=== PATIENT | male | born 1955 | race Caucasian/White ===

== ENCOUNTER 2016-03-21 21:24 | Inpatient (IN) | payer MEDICARE, MEDICAID ==
--- NOTE | 2016-03-21 21:32 | ED Physician Chart ---
Chief Complaint/HPI - Patient Information Date Seen:: 03/21/16 Time Seen:: 21:30 Chief Complaint:: congestion History of Present Illness:: 60-year-old male history of severe intellectual disability, brought in by EMS with acute, constant, moderate, tarry congestion and associated fever since earlier this morning. History limited as patient has underlying intellectual disability History limited by EMS Allergies:: Allergies Allergy/AdvReac Type Severity Reaction Status Date / Time codeine Allergy Verified 01/17/16 21:45 erythromycin base Allergy Verified 01/17/16 21:45 levofloxacin [From Levaquin] Allergy Verified 01/17/16 21:45 Penicillins [PCN] Allergy Verified 01/17/16 21:45 Historian:: EMS Review:: Nurse's Note Reviewed, EMS run form Reviewed, Transfer documents Reviewed Review of Systems - Review of Systems Other: Complete system review otherwise unremarkable except as noted in HPI. Family Medical History - Family Member Mother History Unknown: Yes Ethnicity: Unknown Physical Exam - Physical Examination Other:: INITIAL VITAL SIGNS: Reviewed by ut GENERAL: Patient is lying on gurney HEAD: Head is normocephalic. No evidence of trauma. No scalp or facial swelling EYES: No scleral icterus bilaterally ENT: Oropharynx is clear of exudate and erythema NECK: Supple. No meningismus. No masses. No evidence of trauma. No cervical spine bony step-offs or crepitus to palpation RESPIRATORY: No tachypnea. Left lower lobe is worse with some crepitus. CV: Regular rate and rhythm. No murmurs, rubs, or gallops ABDOMEN: Soft, non-distended. No masses BACK: No ecchymoses. No evidence of trauma EXTREMITIES: Normal to inspection and palpation. No deformity SKIN: Warm and dry. No obvious rash. No jaundice NEUROLOGIC: Face is symmetric. Withdraws to pain in all extremities Labs/Radiology/EKG Results - Lab Results Results: Lab Results 03/21/16 03/21/16 03/21/16 Range/Units 22:50 22:50 22:50 WBC 12.3 H D (4.8-10.8) Th/cmm RBC 3.86 L (4.30-5.70) Mil/cmm Hgb 13.5 (13.2-17.3) gm/dL Hct 39.2 (39.0-49.0) % MCV 101.4 H (80-99) fl MCH 34.8 H (26.0-30.0) pg MCHC Differential 34.4 (28.0-36.0) pg RDW 11.7 (11.5-20.0) % Plt Count 181 (150-400) Th/cmm MPV 8.2 fl Band Neutrophils % 3 (0-10) % Neutrophils (Manual) 62 (40-80) % Lymphocytes 20 (20-50) % Monocytes 15 H (2-10) % Platelet Estimate ADEQUATE (NORMAL) Ovalocytes 1+ Sodium 129 L (136-145) mEq/L Potassium 4.3 (3.5-5.1) mEq/L Chloride 99 (98-107) mEq/L Carbon Dioxide 21.0 (21.0-31.0) mEq/L Anion Gap 13.3 (7.0-16.0) BUN 15 (7-25) mg/dL Creatinine 0.9 (0.7-1.3) mg/dL Est GFR ( Amer) > 60.0 (>90) ml/min Est GFR (Non-Af Amer) > 60.0 ml/min BUN/Creatinine Ratio 16.7 Glucose 101 (70-105) mg/dL Whole Bld Lactic Acid 1.22 (0.60-2.00) mmol/L Calcium 9.0 (8.6-10.3) mg/dL Total Bilirubin 0.4 (0.3-1.0) mg/dL AST 20 (13-39) U/L ALT 13 (7-52) U/L Alkaline Phosphatase 82 (34-104) U/L Creatine Kinase 181 (30-223) U/L Total Protein 7.1 (6.0-8.3) gm/dL Albumin 3.6 L (4.2-5.5) gm/dL Globulin 3.5 gm/dL Albumin/Globulin Ratio 1.0 (1.0-1.8) Urine Source Urine Color Urine Clarity (CLEAR) Urine pH Ur Specific [place] (1.005-1.030) Urine Protein (NEGATIVE) mg/dL Urine Glucose (UA) (NEGATIVE) mg/dL Urine Ketones (NEGATIVE) mg/dL Urine Blood (NEGATIVE) Urine Nitrate (NEGATIVE) Urine Bilirubin (NEGATIVE) Urine Urobilinogen (0.2 - 1.0) E.U./dL Ur Leukocyte Esterase (NEGATIVE) 03/22/16 Range/Units 01:40 WBC (4.8-10.8) Th/cmm RBC (4.30-5.70) Mil/cmm Hgb (13.2-17.3) gm/dL Hct (39.0-49.0) % MCV (80-99) fl MCH (26.0-30.0) pg MCHC Differential (28.0-36.0) pg RDW (11.5-20.0) % Plt Count (150-400) Th/cmm MPV fl Band Neutrophils % (0-10) % Neutrophils (Manual) (40-80) % Lymphocytes (20-50) % Monocytes (2-10) % Platelet Estimate (NORMAL) Ovalocytes Sodium (136-145) mEq/L Potassium (3.5-5.1) mEq/L Chloride (98-107) mEq/L Carbon Dioxide (21.0-31.0) mEq/L Anion Gap (7.0-16.0) BUN (7-25) mg/dL Creatinine (0.7-1.3) mg/dL Est GFR ( Amer) (>90) ml/min Est GFR (Non-Af Amer) ml/min BUN/Creatinine Ratio Glucose (70-105) mg/dL Whole Bld Lactic Acid (0.60-2.00) mmol/L Calcium (8.6-10.3) mg/dL Total Bilirubin (0.3-1.0) mg/dL AST (13-39) U/L ALT (7-52) U/L Alkaline Phosphatase (34-104) U/L Creatine Kinase (30-223) U/L Total Protein (6.0-8.3) gm/dL Albumin (4.2-5.5) gm/dL Globulin gm/dL Albumin/Globulin Ratio (1.0-1.8) Urine Source CATH Urine Color YELLOW Urine Clarity CLEAR (CLEAR) Urine pH 7.0 Ur Specific [place] 1.015 (1.005-1.030) Urine Protein 30 H (NEGATIVE) mg/dL Urine Glucose (UA) NEGATIVE (NEGATIVE) mg/dL Urine Ketones NEGATIVE (NEGATIVE) mg/dL Urine Blood NEGATIVE (NEGATIVE) Urine Nitrate NEGATIVE (NEGATIVE) Urine Bilirubin NEGATIVE (NEGATIVE) Urine Urobilinogen 0.2 (0.2 - 1.0) E.U./dL Ur Leukocyte Esterase NEGATIVE (NEGATIVE) - Radiology Results Results: Single AP VIEW Portable Chest X-ray was interpreted independently and contemporaneously by Ramiro Sherman MD: No cardiomegaly Normal mediastinum Left lower lobe infiltrates No pneumothorax No soft tissue or bony abnormalities ED Septic Shock - . Is Septic Shock (SBP<90, OR Lactate>4 mmol\L) present?: No Reassessment (Disposition) - Reassessment Reassessment:: Patient has left lower lobe pneumonia. He has multiple drug allergies. Gave Rocephin and doxycycline IV. Call admitting physician discussed the case. Patient will be admitted for further workup and treatment left lower lobe pneumonia. - Diagnosis Diagnosis:: Left lower lobe pneumonia, acute - Patient Disposition Discharge/Transfer:: Home Admitted to:: Med/Surg Admitting Medical Physician:: Glenys Martinez Time:: 01:58 Condition at Disposition:: Stable
[2016-03-21 23:14] LABS: HEMATOCRIT 39.2 % (39.0-49.0); HEMOGLOBIN 13.5 gm/dL (13.2-17.3); MEAN CELL VOLUME 101.4 fl (80-99); MEAN CORPUSCULAR HEMOGLOBIN 34.8 pg (26.0-30.0); MEAN CORPUSCULAR HGB CONC 34.4 pg (28.0-36.0); MEAN PLATELET VOLUME 8.2 fl; PLATELET COUNT 181 Th/cmm (150-400); RED BLOOD COUNT 3.86 Mil/cmm (4.30-5.70); RED CELL DISTRIBUTION WIDTH 11.7 % (11.5-20.0)
[2016-03-21 23:18] LABS: WHITE BLOOD COUNT 12.3 Th/cmm (4.8-10.8)
[2016-03-21 23:32] LABS: ALKALINE PHOSPHATASE 82 U/L (34-104); ANION GAP 13.3 (7.0-16.0); BILIRUBIN,TOTAL 0.4 mg/dL (0.3-1.0); BUN - UREA NITROGEN 15 mg/dL (7-25); BUN/CREATININE RATIO 16.7; CHLORIDE 99 mEq/L (98-107); CREATININE - SERUM 0.9 mg/dL (0.7-1.3); GLUCOSE 101 mg/dL (70-105); POTASSIUM SERUM 4.3 mEq/L (3.5-5.1); SGOT 20 U/L (13-39); SGPT/ALT 13 U/L (7-52); SODIUM SERUM 129 mEq/L (136-145)
[2016-03-22 00:02] LABS: BAND NEUTROPHILE 3 % (0-10); NEUTROPHILS 62 % (40-80); OVALOCYTES 1+; PLATELET ESTIMATE ADEQUATE (NORMAL); TOTAL CELLS COUNTED 100
[2016-03-22] MEDS ORDERED: cefTRIAXone 1 GM in Sodium Chloride 0.9% 50 ML IV ONE (01:30)
[2016-03-22 01:55] LABS: URINE COLOR YELLOW
[2016-03-22 01:56] LABS: URINE BILIRUBIN NEGATIVE (NEGATIVE); URINE BLOOD NEGATIVE (NEGATIVE); URINE GLUCOSE (UA) NEGATIVE (NEGATIVE); URINE KETONE NEGATIVE (NEGATIVE); URINE PROTEIN 30 mg/dL (NEGATIVE); URINE RBC 0-2 /hpf (0-5); URINE UROBILINOGEN 0.2 E.U./dL (0.2 - 1.0); URINE WBC 0-2 /hpf (0-5)
[2016-03-22 01:57] LABS: URINE BACTERIA OCCASIONAL /hpf (NONE SEEN); URINE EPITHELIAL CELLS OCCASIONAL /lpf (FEW)
[2016-03-22] MEDS ORDERED: Magnesium Hydroxide (MOM) 30 mL UDC GT PRN (07:19)
[2016-03-22] MEDS ORDERED: Fleet Enema 135 mL RC PRN (07:19)
[2016-03-22] MEDS ORDERED: FENOFIBRATE GT SCH (09:00)
[2016-03-22] MEDS ORDERED: MELOXICAM 7.5 MG GT SCH (09:00)
--- NOTE | 2016-03-22 09:57 | Diagnostic Imaging Report ---
CHEST X-RAY: AP view INDICATION: pain COMPARISON: Chest x-ray 01/19/2016 FINDINGS: Left effusion is noted with left lung infiltrates. Cardiomegaly is noted. Deformity of the right shoulder is again noted. IMPRESSION: Left effusion and left lung infiltrates. Clinical correlation and follow-up is recommended Cardiomegaly.
[2016-03-22] MEDS: carBAMazepine 200 mg/10 mL UDC GT SCH ×2 (11:42→17:40)
[2016-03-22] MEDS: Multivitamin w/ Minerals Tab PO SCH (11:42)
[2016-03-22] MEDS: Calcium Carb/Vit D 500 mg/200 U Tab GT SCH ×2 (11:44→17:41)
[2016-03-22] MEDS: Polyvinyl Alcohol Ophth Soln 15 mL Bottle EACH EYE SCH ×4 (11:45→17:44)
[2016-03-22] MEDS: metroNIDAZOLE 500mg/NS 100mL 500 MG/100 ML BAG IV SCH (12:30)
[2016-03-22] MEDS: Albuterol/Ipratropium Neb 3 ML AERS HHN SCH ×4 (13:10→22:22)
[2016-03-22] MEDS: cefTRIAXone 1 GM in Sodium Chloride 0.9% 100 ML IV SCH (13:21)
--- NOTE | 2016-03-22 15:30 | History & Physical ---
CHIEF COMPLAINT: Congestion and cough. HISTORY OF PRESENT ILLNESS: A 60-year-old gentleman who has been admitted here for pneumonias in the past was brought in by EMS from [facility] with acute episode of constant, moderate cough with thick phlegm. Apparently, the patient was doing okay until earlier this morning when he was noted to have the above-mentioned symptomatology. Given his risk for pneumonia and given his chronic disability, the patient was brought into the ER where pertinent findings include a white blood cell of 12.3, sodium of 129 and a chest x-ray showing a left lower lobe infiltrate. The patient has been admitted to the medical/surgical floor for further management and care. PAST MEDICAL HISTORY: Includes severe intellectual disability, mental retardation, cerebral palsy, dyslipidemia, seizure disorder, history of CAD, hypothyroidism and hypertension and dysphagia. PAST SURGICAL HISTORY: Include PEG placement. FAMILY HISTORY: Likely noncontributory. SOCIAL HISTORY: He lives at [facility] and care under the care of Dr. Prince. ALLERGIES: MULTIPLE ALLERGIES INCLUDING CODEINE, ERYTHROMYCIN LEVAQUIN, PENICILLINS. REVIEW OF SYSTEMS: Unable to be done given patient's mental condition. PHYSICAL EXAMINATION: VITAL SIGNS: Temperature 97.0, pulse 112, respirations 19-22, BP 112/71, he is satting 98-100% on 2 liters. GENERAL: He is a developmentally delayed male who appears to be well-nourished, was not in acute distress. HEAD: He is atraumatic and normocephalic. NECK: There is no JVD or LAD. CARDIOVASCULAR: Regular rate and rhythm. LUNGS: He has got coarse rhonchi bilaterally, more pronounced on the left side. ABDOMEN: Soft, supple, nontender, nondistended. EXTREMITIES: He does have a PEG tube in place. There is no tenderness to palpation. There is normoactive bowel sounds. LOWER EXTREMITIES: There is no edema, clubbing or cyanosis. LABORATORY DATA: White count 12.3, H and H 13/39 with 15% monocytes and platelet count 181. Sodium 129, potassium 4.3, chloride 99, CO2 21, BUN 15, creatinine 0.9, lactic acid 1.22. LFTs were within normal limits. UA shows trace protein, 0-2 rbc's, negative for leukocyte. DIAGNOSTICS: Chest x-ray shows a left effusion and a left lung infiltrates and cardiomegaly. IMPRESSION: 1. Left-sided pneumonia with effusions. 2. Leukocytosis. 3. History of previous complicated pneumonias, will have to rule out aspiration pneumonia. 4. History of coronary artery disease. 5. Hypertension. 6. Hypothyroidism. 7. ental retardation/cerebral palsy. PLAN: The patient has been admitted to the medical floor and has been placed on Rocephin and Flagyl for anaerobic coverage. Pulmonary supportive care will also be asked for around the clock and a sputum C and will also be collected. He will be kept on his other medications as scheduled. I will also ask for cough suppressants and a followup x-ray as well as a pulmonary eval will be asked for as well. JOB# [id number]
[2016-03-22] MEDS: D5-0.45NS 1,000 ML IV SCH (16:01)
--- NOTE | 2016-03-22 16:25 | Admit Criteria Form ---
Admit Criteria Forms - Admit Criteria Diagnosis: PNEUMONIA, COMMUNITY ACQUIRED Clinical Indications for Admission to Inpatient Care ( Place 'X' for any and all applicable criteria): Admission is indicated for ANY ONE of the following (1)(2)(3): [ ]I. Hypoxemia indicated by ANY ONE of the following: [ ]a) Oxygen saturation less than 90% while breathing room air [ ]b) PO2 less than 60 mm Hg (8.0 kPa) while breathing room air [ ]c) Chronic lung disease with significant deterioration from baseline oxygenation [X ]II. Appropriate diagnostic testing and treatment unavailable in outpatient or recovery facility (eg,testing or infection control measures unavailable(10) [ ]III. Moderate-risk or high-risk category patients (Pneumonia Severity Index (PSI) class IV or V, or CURB-65 score of 3 or greater). [ ]IV. Outpatient treatment failure as indicated by ANY ONE of the following(9) : [ ]a) Failure to respond to antibiotic (eg, resistant organism) [ ]b) Clinically significant adverse effects from medication (eg, vomiting) [ ]c) Complications of pneumonia (eg, empyema, bacteremia) [ ]d) Significant worsening of comorbid cond necessitating inpatient care (eg, chronic heart failure) [ ]V. Intermediate-risk category patients (eg, PSI class III or CURB-65 score 2) who do not improve with initial therapy and observation. [ ]. Immunocompromised patients (eg, AIDS, chronic steroid use) at moderate or high risk based on clinical evaluation. [ ]VII. Complicated pleural effusions (eg, exudative, loculated) [ ]VIII.Hemodynamic instability [ ] IX. Altered mental status that is severe or persistent. [ ]X. Dehydration that is severe or persistent. [ ]XI. Bacteremia [ ]XII. Respiratory finding (eg. tachypnea) that do not respond to outpatient or observation care treatment Extended stay beyond goal length of stay may be needed for (20) [ ]a) Unclear diagnosis [ ]b) Pleural disease [ ]c) Severe pneumonia or treatment failure (25 [ ]d) Respiratory failure (anticipate invasive or noninvasive ventilatory support) [ ]e) Abnormal serum electrolytes (serum Na concentration less than 135 mEq/L (mmol/L) (32)(33) [ ]f) Clinically significant comorbid illness (eg, heart failure, atrial fibrillation with rapid heart rate, alcohol withdrawal, renal insufficiency)(34)(35) [ ]g) Comorbid acute exacerbation of COPD(36) [ ]h) Concomitant diagnosis of malignancy that may be associated with malnutrition, immunologic impairment, or bronchial obstruction. [ ]i) Concomitant altered mental status [ ]j) Culture-identified Gram-negative or antibiotic-resistant organism (eg, Pseudomonas, methicillin-resistant Staphylococcus aureus)(30) [ ]k) Healthcare-associated pneumonia The original [facility] content created by [employer] has been revised. The portions of the content which have been revised are identified through the use of italic text or in bold, and [facility] has neither reviewed nor approved the modified material. All other unmodified content is copyright [facility]. Please see references footnoted in the original [facility] edition 2016 Admit Criteria Met?: Yes
[2016-03-23] MEDS: metroNIDAZOLE 500mg/NS 100mL 500 MG/100 ML BAG IV SCH ×5 (00:50→19:47)
[2016-03-23] MEDS: Atorvastatin Calcium 10 MG TAB GT SCH ×2 (00:58→21:40)
[2016-03-23] MEDS: Polyvinyl Alcohol Ophth Soln 15 mL Bottle EACH EYE SCH ×5 (00:58→21:40)
[2016-03-23] MEDS: Albuterol/Ipratropium Neb 3 ML AERS HHN SCH ×6 (02:43→23:24)
--- NOTE | 2016-03-23 04:23 | Consultation ---
The patient of Dr. Martinez. Thank you Dr. Martinez for this consultation. HISTORY OF PRESENT ILLNESS: This is a 60-year-old male with history of mental challenge, bedridden, dysphagia, [facility] resident, presents with cough, congestion, was found to have pneumonia, admitted for further treatment and management. The patient unable to give any history, appears to be congested, but comfortable. No significant distress at this time. PAST MEDICAL HISTORY: As above. SOCIAL HISTORY: [facility]. PHYSICAL EXAMINATION: VITAL SIGNS: Temperature is 97.8, pulse is 104, respiration is 19, blood pressure 132/70, saturation 98-100%. HEENT: Atraumatic, normocephalic. Pupils reactive to light and accommodation. Ears, nose and throat normal. NECK: Supple. No JVD. CHEST: There are rhonchi bilaterally, more on left than right, decreased breath sounds in the left base. HEART: Regular rate and rhythm. No murmurs. ABDOMEN: Soft. No tenderness. EXTREMITIES: No edema. Chest x-ray, left lower lobe infiltrate with small effusion. LABORATORY DATA: WBC is 12.3, hemoglobin 13.5, hematocrit 39.2, platelets 181. Sodium is 129, potassium 4.3, BUN 15, creatinine 0.9. IMPRESSION: This is a 60-year-old male with: 1. Left lower lobe pneumonia. 2. Dysphagia. 3. Mental retardation. PLAN: 1. IV antibiotics. 2. Nebulizer treatment. 3. Pulmonary toilet. 4. Follow up chest x-ray. I will follow the patient with you. Thank you very much for this consultation. JOB# [id number]
[2016-03-23] MEDS: D5-0.45NS 1,000 ML IV SCH ×2 (07:54→21:56)
[2016-03-23] MEDS: Levothyroxine 0.1 Mg Tab GT SCH (07:55)
[2016-03-23 08:14] LABS: HEMATOCRIT 38.9 % (39.0-49.0); HEMOGLOBIN 13.3 gm/dL (13.2-17.3); MEAN CELL VOLUME 101.6 fl (80-99); MEAN CORPUSCULAR HEMOGLOBIN 34.7 pg (26.0-30.0); MEAN CORPUSCULAR HGB CONC 34.1 pg (28.0-36.0); MEAN PLATELET VOLUME 8.3 fl; PLATELET COUNT 206 Th/cmm (150-400); RED BLOOD COUNT 3.83 Mil/cmm (4.30-5.70); RED CELL DISTRIBUTION WIDTH 11.6 % (11.5-20.0)
[2016-03-23 08:20] LABS: WHITE BLOOD COUNT 7.7 Th/cmm (4.8-10.8)
[2016-03-23 08:25] LABS: ANION GAP 9.1 (7.0-16.0); BUN - UREA NITROGEN 8 mg/dL (7-25); BUN/CREATININE RATIO 13.3; CALCIUM SERUM 8.8 mg/dL (8.6-10.3); CHLORIDE 102 mEq/L (98-107); CREATININE - SERUM 0.6 mg/dL (0.7-1.3); GLUCOSE 101 mg/dL (70-105); POTASSIUM SERUM 4.1 mEq/L (3.5-5.1); SODIUM SERUM 132 mEq/L (136-145)
--- NOTE | 2016-03-23 09:18 | Diagnostic Imaging Report ---
CHEST X-RAY: AP view INDICATION: Pneumonia COMPARISON: Chest x-ray to 03/21/16 FINDINGS: There is improved aeration of the left lung base with resolving left basal opacity. Heart size is mildly prominent. Persistent suboptimal lung volume are noted. IMPRESSION: Improved aeration of the left lung base with resolving left basal opacity likely due to resolving pleural effusion and resolving atelectasis and/or infiltrate in this region.
[2016-03-23] MEDS: carBAMazepine 200 mg/10 mL UDC GT SCH ×2 (09:42→16:57)
[2016-03-23] MEDS: Multivitamin w/ Minerals Tab PO SCH (09:42)
[2016-03-23] MEDS: Calcium Carb/Vit D 500 mg/200 U Tab GT SCH ×2 (09:43→16:59)
[2016-03-23] MEDS: Fenofibrate, Micronized 134 mg Cap PO SCH (09:43)
[2016-03-23 10:28] LABS: BAND NEUTROPHILE 2 % (0-10); EOSINOPHIL 1 % (0-5); NEUTROPHILS 67 % (40-80); PLATELET ESTIMATE ADEQUATE (NORMAL); PLATELET MORPHOLOGY NORMAL (NORMAL); TOTAL CELLS COUNTED 100
[2016-03-23] MEDS: cefTRIAXone 1 GM in Sodium Chloride 0.9% 100 ML IV SCH (13:01)
[2016-03-24] MEDS: metroNIDAZOLE 500mg/NS 100mL 500 MG/100 ML BAG IV SCH ×4 (00:21→20:00)
[2016-03-24] MEDS: Albuterol/Ipratropium Neb 3 ML AERS HHN SCH ×6 (03:05→23:19)
[2016-03-24] MEDS: Levothyroxine 0.1 Mg Tab GT SCH ×2 (06:23→08:37)
[2016-03-24 07:15] LABS: HEMATOCRIT 40.4 % (39.0-49.0); HEMOGLOBIN 13.7 gm/dL (13.2-17.3); MEAN CELL VOLUME 101.1 fl (80-99); MEAN CORPUSCULAR HEMOGLOBIN 34.2 pg (26.0-30.0); MEAN CORPUSCULAR HGB CONC 33.8 pg (28.0-36.0); PLATELET COUNT 218 Th/cmm (150-400); RED CELL DISTRIBUTION WIDTH 11.5 % (11.5-20.0); WHITE BLOOD COUNT 8.3 Th/cmm (4.8-10.8)
[2016-03-24 07:17] LABS: ANION GAP 12.7 (7.0-16.0); BUN - UREA NITROGEN 6 mg/dL (7-25); CALCIUM SERUM 9.1 mg/dL (8.6-10.3); CARBON DIOXIDE 23.4 mEq/L (21.0-31.0); CHLORIDE 104 mEq/L (98-107); CREATININE - SERUM 0.6 mg/dL (0.7-1.3); GLUCOSE 121 mg/dL (70-105); POTASSIUM SERUM 4.1 mEq/L (3.5-5.1); SODIUM SERUM 136 mEq/L (136-145)
[2016-03-24] MEDS: carBAMazepine 200 mg/10 mL UDC GT SCH ×2 (08:26→17:48)
[2016-03-24] MEDS: Multivitamin w/ Minerals Tab PO SCH (08:27)
[2016-03-24] MEDS: Fenofibrate, Micronized 134 mg Cap PO SCH (08:27)
[2016-03-24] MEDS: Calcium Carb/Vit D 500 mg/200 U Tab GT SCH ×2 (08:27→17:48)
[2016-03-24] MEDS: Polyvinyl Alcohol Ophth Soln 15 mL Bottle EACH EYE SCH ×4 (08:51→22:23)
[2016-03-24 10:06] LABS: BAND NEUTROPHILE 1 % (0-10); NEUTROPHILS 65 % (40-80); PLATELET ESTIMATE ADEQUATE (NORMAL); PLATELET MORPHOLOGY NORMAL (NORMAL); TOTAL CELLS COUNTED 100
[2016-03-24 10:07] LABS: ANISOCYTOSIS 1+
[2016-03-24] MEDS: cefTRIAXone 1 GM in Sodium Chloride 0.9% 100 ML IV SCH (13:01)
[2016-03-24] MEDS: Atorvastatin Calcium 10 MG TAB GT SCH (22:24)
[2016-03-25] MEDS: metroNIDAZOLE 500mg/NS 100mL 500 MG/100 ML BAG IV SCH ×4 (00:49→18:08)
[2016-03-25] MEDS: Albuterol/Ipratropium Neb 3 ML AERS HHN SCH ×6 (03:09→22:58)
[2016-03-25] MEDS: Levothyroxine 0.1 Mg Tab GT SCH (06:59)
[2016-03-25 08:05] LABS: % BASOPHILS 0.2 % (0.0-2.0); % EOSINOPHILS 4.1 % (0.0-5.0); % LYMPHOCYTES 17.8 % (20.0-50.0); % MONOCYTES 11.4 % (2.0-10.0); % NEUTROPHILS 66.5 % (40.0-80.0); HEMATOCRIT 37.3 % (39.0-49.0); HEMOGLOBIN 12.9 gm/dL (13.2-17.3); MEAN CELL VOLUME 99.1 fl (80-99); MEAN CORPUSCULAR HEMOGLOBIN 34.3 pg (26.0-30.0); MEAN CORPUSCULAR HGB CONC 34.7 pg (28.0-36.0); MEAN PLATELET VOLUME 7.5 fl; NEUTROPHILE ABSOLUTE 3.9 Th/cmm (1.8-8.0); PLATELET COUNT 238 Th/cmm (150-400); RED BLOOD COUNT 3.77 Mil/cmm (4.30-5.70); RED CELL DISTRIBUTION WIDTH 11.6 % (11.5-20.0)
[2016-03-25 08:06] LABS: WHITE BLOOD COUNT 5.8 Th/cmm (4.8-10.8)
[2016-03-25 08:45] LABS: BUN - UREA NITROGEN 7 mg/dL (7-25); CARBON DIOXIDE 28.1 mEq/L (21.0-31.0); CHLORIDE 106 mEq/L (98-107); CREATININE - SERUM 0.5 mg/dL (0.7-1.3); GLUCOSE 110 mg/dL (70-105); POTASSIUM SERUM 4.1 mEq/L (3.5-5.1); SODIUM SERUM 138 mEq/L (136-145)
[2016-03-25] MEDS: carBAMazepine 200 mg/10 mL UDC GT SCH ×2 (09:37→16:48)
[2016-03-25] MEDS: Calcium Carb/Vit D 500 mg/200 U Tab GT SCH ×2 (09:38→16:48)
[2016-03-25] MEDS: Multivitamin w/ Minerals Tab PO SCH (09:38)
[2016-03-25] MEDS: Fenofibrate, Micronized 134 mg Cap PO SCH (09:41)
[2016-03-25] MEDS: Polyvinyl Alcohol Ophth Soln 15 mL Bottle EACH EYE SCH ×3 (09:42→16:49)
--- NOTE | 2016-03-25 10:15 | Diagnostic Imaging Report ---
Portable chest x-ray HISTORY: Shortness of breath Compared with prior exam of March 23, 2016, the apical regions of the chest [place] by the patient's overlying head. No obvious focal processes seen within the visualized regions of the lungs. IMPRESSION: 1. Limited exam as noted above 2. No obvious focal pulmonary processes within the visualized regions of the lungs.
[2016-03-25] MEDS: cefTRIAXone 1 GM in Sodium Chloride 0.9% 100 ML IV SCH (13:10)
[2016-03-25] MEDS: Atorvastatin Calcium 10 MG TAB GT SCH (21:55)
[2016-03-25] MEDS: D5-0.45NS 1,000 ML IV SCH (22:26)
[2016-03-26] MEDS: metroNIDAZOLE 500mg/NS 100mL 500 MG/100 ML BAG IV SCH ×3 (00:34→12:19)
[2016-03-26] MEDS: Albuterol/Ipratropium Neb 3 ML AERS HHN SCH ×6 (02:46→23:05)
[2016-03-26] MEDS: Polyvinyl Alcohol Ophth Soln 15 mL Bottle EACH EYE SCH ×4 (06:10→16:39)
[2016-03-26] MEDS: Fenofibrate, Micronized 134 mg Cap PO SCH (09:27)
[2016-03-26] MEDS: carBAMazepine 200 mg/10 mL UDC GT SCH ×2 (09:27→18:54)
[2016-03-26] MEDS: Calcium Carb/Vit D 500 mg/200 U Tab GT SCH ×2 (09:28→16:38)
[2016-03-26] MEDS: Levothyroxine 0.1 Mg Tab GT SCH ×2 (09:28→09:30)
[2016-03-26] MEDS: Multivitamin w/ Minerals Tab PO SCH (09:28)
[2016-03-26] MEDS: cefTRIAXone 1 GM in Sodium Chloride 0.9% 100 ML IV SCH (13:16)
[2016-03-26] MEDS: D5-0.45NS 1,000 ML IV SCH (21:54)
[2016-03-26] MEDS: Atorvastatin Calcium 10 MG TAB GT SCH (21:55)
[2016-03-27] MEDS: metroNIDAZOLE 500mg/NS 100mL 500 MG/100 ML BAG IV SCH ×5 (00:25→19:32)
[2016-03-27] MEDS: Albuterol/Ipratropium Neb 3 ML AERS HHN SCH ×6 (02:57→23:15)
[2016-03-27 07:00] LABS: MEAN PLATELET VOLUME 7.6 fl
[2016-03-27 07:06] LABS: ANION GAP 10.8 (7.0-16.0); BUN - UREA NITROGEN 8 mg/dL (7-25); BUN/CREATININE RATIO 13.3; CALCIUM SERUM 8.9 mg/dL (8.6-10.3); CARBON DIOXIDE 25.9 mEq/L (21.0-31.0); CHLORIDE 106 mEq/L (98-107); CREATININE - SERUM 0.6 mg/dL (0.7-1.3); GLUCOSE 111 mg/dL (70-105); POTASSIUM SERUM 4.7 mEq/L (3.5-5.1); SODIUM SERUM 138 mEq/L (136-145)
[2016-03-27] MEDS: Levothyroxine 0.1 Mg Tab GT SCH (07:06)
[2016-03-27 07:22] LABS: % BASOPHILS 0.5 % (0.0-2.0); % EOSINOPHILS 4.5 % (0.0-5.0); % LYMPHOCYTES 24.6 % (20.0-50.0); % MONOCYTES 13.9 % (2.0-10.0); % NEUTROPHILS 56.5 % (40.0-80.0); HEMATOCRIT 38.9 % (39.0-49.0); HEMOGLOBIN 13.6 gm/dL (13.2-17.3); MEAN CELL VOLUME 97.4 fl (80-99); MEAN CORPUSCULAR HEMOGLOBIN 33.9 pg (26.0-30.0); MEAN CORPUSCULAR HGB CONC 34.8 pg (28.0-36.0); NEUTROPHILE ABSOLUTE 3.1 Th/cmm (1.8-8.0); PLATELET COUNT 248 Th/cmm (150-400); RED CELL DISTRIBUTION WIDTH 11.4 % (11.5-20.0); WHITE BLOOD COUNT 5.3 Th/cmm (4.8-10.8)
[2016-03-27] MEDS ORDERED: Ciprofloxacin 400mg Premix PB 400 MG/200 ML BAG IV SCH (09:15)
[2016-03-27] MEDS: Fenofibrate, Micronized 134 mg Cap PO SCH (09:19)
[2016-03-27] MEDS: carBAMazepine 200 mg/10 mL UDC GT SCH ×2 (09:19→16:40)
[2016-03-27] MEDS: Calcium Carb/Vit D 500 mg/200 U Tab GT SCH ×2 (09:20→16:40)
[2016-03-27] MEDS: Multivitamin w/ Minerals Tab PO SCH (09:20)
[2016-03-27] MEDS: Polyvinyl Alcohol Ophth Soln 15 mL Bottle EACH EYE SCH ×4 (09:27→22:45)
--- NOTE | 2016-03-27 12:00 | Diagnostic Imaging Report ---
Portable chest x-ray HISTORY: Shortness of breath Compared with prior exam of March 25, 2016, the heart is enlarged. No definite focal pulmonary processes. Question small left pleural effusion. IMPRESSION: 1. Cardiomegaly 2. Question small left pleural effusion 3. Chronic deformity and changes about the right shoulder and humeral neck region.
[2016-03-27] MEDS: D5-0.45NS 1,000 ML IV SCH (13:44)
[2016-03-27] MEDS: Atorvastatin Calcium 10 MG TAB GT SCH (22:24)
[2016-03-28] MEDS: Polyvinyl Alcohol Ophth Soln 15 mL Bottle EACH EYE SCH ×4 (00:44→17:18)
[2016-03-28] MEDS: metroNIDAZOLE 500mg/NS 100mL 500 MG/100 ML BAG IV SCH ×5 (00:51→17:32)
[2016-03-28] MEDS: Albuterol/Ipratropium Neb 3 ML AERS HHN SCH ×5 (03:39→14:13)
[2016-03-28] MEDS: Levothyroxine 0.1 Mg Tab GT SCH (06:31)
[2016-03-28 06:56] LABS: % BASOPHILS 0.1 % (0.0-2.0); % EOSINOPHILS 1.1 % (0.0-5.0); % LYMPHOCYTES 18.6 % (20.0-50.0); % MONOCYTES 10.1 % (2.0-10.0); % NEUTROPHILS 70.1 % (40.0-80.0); HEMATOCRIT 38.5 % (39.0-49.0); HEMOGLOBIN 13.2 gm/dL (13.2-17.3); MEAN CELL VOLUME 99.5 fl (80-99); MEAN CORPUSCULAR HEMOGLOBIN 34.1 pg (26.0-30.0); MEAN CORPUSCULAR HGB CONC 34.3 pg (28.0-36.0); MEAN PLATELET VOLUME 7.8 fl; NEUTROPHILE ABSOLUTE 4.5 Th/cmm (1.8-8.0); RED BLOOD COUNT 3.87 Mil/cmm (4.30-5.70); RED CELL DISTRIBUTION WIDTH 11.8 % (11.5-20.0)
[2016-03-28 07:27] LABS: PLATELET COUNT 318 Th/cmm (150-400); WHITE BLOOD COUNT 6.5 Th/cmm (4.8-10.8)
[2016-03-28 07:35] LABS: ANION GAP 7.7 (7.0-16.0); BUN - UREA NITROGEN 10 mg/dL (7-25); BUN/CREATININE RATIO 16.7; CALCIUM SERUM 9.1 mg/dL (8.6-10.3); CARBON DIOXIDE 23.7 mEq/L (21.0-31.0); CHLORIDE 107 mEq/L (98-107); CREATININE - SERUM 0.6 mg/dL (0.7-1.3); GLUCOSE 119 mg/dL (70-105); MAGNESIUM 2.1 mg/dL (1.9-2.7); POTASSIUM SERUM 4.4 mEq/L (3.5-5.1); SODIUM SERUM 134 mEq/L (136-145)
[2016-03-28] MEDS: Fenofibrate, Micronized 134 mg Cap PO SCH (09:57)
[2016-03-28] MEDS: Multivitamin w/ Minerals Tab PO SCH (09:59)
[2016-03-28] MEDS: Calcium Carb/Vit D 500 mg/200 U Tab GT SCH ×2 (09:59→17:17)
[2016-03-28] MEDS: carBAMazepine 200 mg/10 mL UDC GT SCH ×2 (10:00→17:17)
[2016-03-28] MEDS ORDERED: Ciprofloxacin 200mg Premix PB 200 MG/100 ML BAG IV SCH (10:00)
--- NOTE | 2016-05-15 18:53 | Discharge Summary ---
ADMITTING DIAGNOSES: Congestion, cough, left-sided pneumonia with pleural effusion, and leukocytosis. SECONDARY DIAGNOSES: History of previous complicated pneumonias, history of aspiration pneumonia, history of coronary artery disease, history of hypertension, hypothyroidism, and mental retardation with cerebral palsy. DISCHARGE DIAGNOSES: Congestion, cough, left-sided pneumonia with pleural effusion, and leukocytosis. CONSULTANTS: Dr. Burleson, Pulmonary. PROCEDURES: There was no major procedure done during this admission. BRIEF HOSPITAL COURSE: This is a 60-year-old male who resides at [facility] who has been admitted to this facility on multiple occasions for pneumonia/aspiration pneumonias and respiratory distress. The patient was brought into the ER with a history of moderate cough with yellowish phlegm x1 day. In the ER, he was noted to have a white count of 12.3, sodium of 129, and x-ray consistent with a left lower lobe infiltrate. The patient was admitted to the telemetry painting where he was placed on IV antibiotics, namely Rocephin, Flagyl, IV fluids, and supportive care including nebulizer treatments and cough syrups. Given his previous history of complex pneumonias, a pulmonary consult was also asked for. The patient's clinical status remained stable and on 03/23/2016, the followup x-ray showed improving aeration of the left lung base with resolving left basal opacity likely due to resolving pleural effusion and resolving atelectasis and/or infiltrate. Vital signs baer, he initially was noted to have a low-grade fever at 99.8, but after that, he remained afebrile and his blood pressure as well as his heart rate did remain stable. As noted above, his white count on admission was 12.3, showing improvement to levels of 7.7 03/23/2016 and remaining stable throughout his hospital stay. MEDICATIONS ON DISCHARGE: Please see the discharge MAR. DISPOSITION: The patient was transferred to [facility] for long-term acute care given his previous history of complicated pneumonias. JOB# [id number]
== END 2016-03-28 22:20 | DRG 178 ==
LOC: ER 21:24 → MSI 03-22 07:07 → TELE 03-25 13:23 → MSI 03-25 13:24
PROVIDERS: ADMIT Internal Medicine; ATTEND Internal Medicine
DX: J15.1 Pneumonia due to Pseudomonas (principal); F72 Severe intellectual disabilities; J90 Pleural effusion, not elsewhere classified; G80.9 Cerebral palsy, unspecified; R13.10 Dysphagia, unspecified; I25.10 Atherosclerotic heart disease of native coronary artery without angina pectoris; I10 Essential (primary) hypertension; E03.9 Hypothyroidism, unspecified; E78.5 Hyperlipidemia, unspecified; G40.909 Epilepsy, unspecified, not intractable, without status epilepticus; Z88.5 Allergy status to narcotic agent; Z88.1 Allergy status to other antibiotic agents; Z88.0 Allergy status to penicillin; Z74.01 Bed confinement status; Z93.1 Gastrostomy status
CPT/HCPCS: 36415-UA; 71010-TC; 80048-TC; 80053-TC; 81001-TC; 82550-TC; 83605; 83735-TC; 83880-TC; 85007-TC; 85025-TC; 85027-TC; 87070; 90799; 94640; 94760; 96375; J0696; J0744; J2405; J2930; J7030; X6118; Z7610

== ENCOUNTER 2016-06-15 11:23 | Emergency (ER) | payer MEDICARE, MEDICAID ==
--- NOTE | 2016-06-15 11:44 | ED Physician Chart ---
Chief Complaint/HPI - Patient Information Date Seen:: 06/15/16 Time Seen:: 11:30 Chief Complaint:: G-tube replacement History of Present Illness:: Patient reportedly pulled [facility] his [facility]tube at his [facility] facility. A Moreno catheter was placed in the stoma probably to keep the stoma from closing. Allergies:: Allergies Allergy/AdvReac Type Severity Reaction Status Date / Time codeine Allergy Verified 01/17/16 21:45 erythromycin base Allergy Verified 01/17/16 21:45 levofloxacin [From Levaquin] Allergy Verified 01/17/16 21:45 Penicillins [PCN] Allergy Verified 01/17/16 21:45 Historian:: EMS Review:: Nurse's Note Reviewed Review of Systems - Review of Systems General/Constitutional: No fever, No chills Skin: No skin lesions Head: No headache Eyes: No loss of vision ENT: No earache Cardio Vascular: No chest pain Pulmonary: No SOB GI: No nausea, No vomiting Musculoskeletal: No bone or joint pain Endocrine: No polyuria Psychiatric: Prior psych history Hematopoietic: No bruising Allergic/Immuno: No urticaria Neurological: No syncope Past Medical History - Past Medical History Past Medical History: HTN, Seizures, Thyroid disorder (a profound mental retardation; gastritis; hypothyroidism) Family History: Other (not available) Social History: Care Facility Surgical History: other (G-tube) Psychiatricy History: Other (severe mental retardation) Medication: Reviewed Family Medical History - Family Member Mother History Unknown: Yes Ethnicity: Unknown Living Status: Unknown Hx Family Cancer: No Hx Family Coronary Artery Disease: No Hx Family Congestive Heart Failure: No Hx Family Hypertension: Yes Hx Family Stroke: No Hx Family Diabetes: No Hx Family Seizures: Yes Hx Family Dementia: No Hx Family AIDS: No Hx Family HIV: No Hx Family COPD: No Hx Family Hepatitis: No Hx Family Psychiatric Problems: No Hx Family Tuberculosis: No Physical Exam - Physical Examination General/Constitutional: Awake Other Gen/Cons comments:: Patient is nonverbal, agitated and restless Head: Atraumatic Eyes: Lids, conjuctiva normal Other Skin comments:: Granuloma noted around the G-tube stoma; no signs of abdominal wall cellulitis ENMT: External ears, nose nl Neck: No nuchal rigidity Respiratory: Nl effort/Exclusion Other Cardio Vascular comments:: Heart sounds in audible GI: No tenderness/rebounding/guarding Extremities: Normal digits & nails Other Neuro/Psych comments:: No spontaneous movement right arm Labs/Radiology/EKG Results - Radiology Results Results: A KUB after the insertion of 50 ML's of Gastrografin into the G-tube showed t.he G-tube to be in the gastrointestinal tract. Assessment - Procedures Procedures:: Skin cleansed around the stoma with chlorhexidine swab; #22 Welsh G-tube inserted without difficulty. ED Septic Shock - . Is Septic Shock (SBP<90, OR Lactate>4 mmol\L) present?: No Reassessment (Disposition) - Reassessment Reassessment Condition:: Improved - Diagnosis Diagnosis:: Severe mental retardation; gastrostomy tube replacement - Aftercare/Follow up Instructions Aftercare/Follow-Up Instructions:: Refer to Discharge Instructions - Patient Disposition Discharge/Transfer:: [facility] SNF Condition at Disposition:: Stable, Improved
[2016-06-15] MEDS ORDERED: Diatrizoate Meglumine/Diatri 30 mL Sol ONE (11:45)
--- NOTE | 2016-06-15 13:53 | Diagnostic Imaging Report ---
Upper GI (Limited) HISTORY: Water-soluble contrast was instilled through patient's gastrostomy tube. The exam demonstrates faint intraluminal opacification of the stomach. Flow of contrast into the small bowel. IMPRESSION: 1. Confirmation of gastrostomy tube within the gastric lumen.
== END 2016-06-15 12:46 ==
LOC: ER 11:23
DX: Z43.1 Encounter for attention to gastrostomy (principal); F72 Severe intellectual disabilities; I10 Essential (primary) hypertension; E07.9 Disorder of thyroid, unspecified; Z93.1 Gastrostomy status; Z88.6 Allergy status to analgesic agent; Z88.0 Allergy status to penicillin; Z88.1 Allergy status to other antibiotic agents
CPT/HCPCS: 99284; 43760; 96372; 74240; J2060; A4217; Z7502; Z7610

== ENCOUNTER 2016-06-29 16:44 | Emergency (ER) | payer MEDICARE, MEDICAID ==
[2016-06-29] MEDS ORDERED: Diatrizoate Meglumine/Diatri 30 mL Sol PO ONE (16:45)
--- NOTE | 2016-06-29 17:18 | ED Physician Chart ---
Chief Complaint/HPI - Patient Information Date Seen:: 06/29/16 Time Seen:: 17:00 Chief Complaint:: G-tube replacement History of Present Illness:: Patient apparently pulled out his G-tube at the SNF. Patient has a history of pulling out his G-tube. Allergies:: Allergies Allergy/AdvReac Type Severity Reaction Status Date / Time codeine Allergy Verified 06/15/16 11:47 erythromycin base Allergy Verified 06/15/16 11:47 levofloxacin [From Levaquin] Allergy Verified 06/15/16 11:47 Penicillins [PCN] Allergy Verified 06/15/16 11:47 Vitals:: Vital Signs - 8 hr 06/29/16 17:07 BP 139/102 Historian:: EMS Review:: Transfer documents Reviewed Review of Systems - Review of Systems General/Constitutional: No fever, No chills Skin: No skin lesions Head: No headache Eyes: No loss of vision ENT: No earache Neck: No neck pain Cardio Vascular: No chest pain Pulmonary: No SOB GI: No nausea G/U: No dysuria Musculoskeletal: No bone or joint pain Endocrine: No polyuria, No polydipsia Psychiatric: Prior psych history Hematopoietic: No bruising Allergic/Immuno: No urticaria Neurological: No syncope Past Medical History - Past Medical History Past Medical History: HTN, Seizures, Thyroid disorder Family History: Other (unavailable) Social History: Non Smoker, No Alcohol, Care Facility Surgical History: PEG/GTube Psychiatricy History: Other (severe mental retardation and cerebral palsy ) Medication: Reviewed Family Medical History - Family Member Mother History Unknown: Yes Ethnicity: Unknown Living Status: Unknown Hx Family Cancer: No Hx Family Coronary Artery Disease: No Hx Family Congestive Heart Failure: No Hx Family Hypertension: Yes Hx Family Stroke: No Hx Family Diabetes: No Hx Family Seizures: Yes Hx Family Dementia: No Hx Family AIDS: No Hx Family HIV: No Hx Family COPD: No Hx Family Hepatitis: No Hx Family Psychiatric Problems: No Hx Family Tuberculosis: No Physical Exam - Physical Examination General/Constitutional: Awake, No distress Other Gen/Cons comments:: Nonverbal; apparent paralysis of the right upper extremity with flexion deformity right wrist Head: Atraumatic Eyes: Lids, conjuctiva normal Skin: No rash, No skin lesions Other Skin comments:: Granulation tissue around the gastrostomy tube stoma. ENMT: External ears, nose nl Other ENMT comments:: Some teeth missing Neck: No nuchal rigidity Respiratory: Nl effort/Exclusion, Clear to Auscultation Cardio Vascular: RRR GI: No tenderness/rebounding/guarding, No organomegaly, No hernia Extremities: Normal digits & nails Other Neuro/Psych comments:: Nonverbal; right upper extremity paralysis Labs/Radiology/EKG Results - Radiology Results Results: After injection of 50 mL of Gastrografin correct position of the G-tube was confirmed by noting the contrast material to be in the small intestine Assessment - Assessment Assessment/Comments:: skin cleanse around the G-tube stoma with Betadine swabs; #22 gastrostomy tube inserted into the stoma. ED Septic Shock - . Is Septic Shock (SBP<90, OR Lactate>4 mmol\L) present?: No - <6hrs of presentation: Vital Signs: Vital Signs - 8 hr 06/29/16 17:07 BP 139/102 Reassessment (Disposition) - Reassessment Reassessment Condition:: Improved - Diagnosis Diagnosis:: Gastrostomy tube replacement; profound mental retardation; spastic quadriplegia - Aftercare/Follow up Instructions Aftercare/Follow-Up Instructions:: Refer to Discharge Instructions - Patient Disposition Discharge/Transfer:: Custodial Care - SNF Condition at Disposition:: Stable, Improved
[2016-06-29 17:22] VITALS: BP 139/102
--- NOTE | 2016-06-30 10:08 | Diagnostic Imaging Report ---
Upper GI with Gastrografin HISTORY: G-tube confirmation COMPARISON: Upper GI series on 06/15/2016 FINDINGS: [employer]or view demonstrates a percutaneous feeding tube. The bowel gas pattern is nonspecific. The second image demonstrates contrast opacification of the stomach and small bowel loops. IMPRESSION: Intraluminal confirmation of patient's percutaneous gastric feeding tube.
== END 2016-06-29 18:20 ==
LOC: ER 16:44
DX: Z43.1 Encounter for attention to gastrostomy (principal); F79 Unspecified intellectual disabilities; G82.50 Quadriplegia, unspecified; I10 Essential (primary) hypertension; E07.9 Disorder of thyroid, unspecified; Z88.0 Allergy status to penicillin; Z88.1 Allergy status to other antibiotic agents; Z88.6 Allergy status to analgesic agent; Z93.1 Gastrostomy status
CPT/HCPCS: Z7502; Z7610

== ENCOUNTER 2016-07-27 22:41 | Emergency (ER) | payer MEDICARE, MEDICAID ==
[2016-07-27] MEDS ORDERED: Diatrizoate Meglumine/Diatri 30 mL Sol ONE (23:07)
--- NOTE | 2016-07-27 23:10 | ED Physician Chart ---
Chief Complaint/HPI - Patient Information Date Seen:: 07/27/16 Time Seen:: 22:50 Chief Complaint:: G-tube replacement History of Present Illness:: Patient pulled out his G-tube at the group home facility. Allergies:: Allergies Allergy/AdvReac Type Severity Reaction Status Date / Time codeine Allergy Verified 06/15/16 11:47 erythromycin base Allergy Verified 06/15/16 11:47 levofloxacin [From Levaquin] Allergy Verified 06/15/16 11:47 Penicillins [PCN] Allergy Verified 06/15/16 11:47 Historian:: EMS Review:: Transfer documents Reviewed Review of Systems - Review of Systems General/Constitutional: No fever, No chills Skin: No skin lesions Head: No headache Eyes: No loss of vision ENT: No earache Neck: No neck pain Cardio Vascular: No chest pain Pulmonary: No SOB GI: No nausea, No vomiting G/U: No dysuria Musculoskeletal: No bone or joint pain Endocrine: No polyuria Psychiatric: Prior psych history Hematopoietic: No bruising Allergic/Immuno: No urticaria Neurological: No syncope, No focal symptoms Past Medical History - Past Medical History Past Medical History: HTN, Seizures, Thyroid disorder (profound mental disability; cerebral palsy; hypothyroidism gastritis), Other Surgical History: PEG/GTube Psychiatricy History: Other (profound mental retardation) Medication: Reviewed Family Medical History - Family Member Mother History Unknown: Yes Ethnicity: Unknown Living Status: Unknown Hx Family Cancer: No Hx Family Coronary Artery Disease: No Hx Family Congestive Heart Failure: No Hx Family Hypertension: Yes Hx Family Stroke: No Hx Family Diabetes: No Hx Family Seizures: Yes Hx Family Dementia: No Hx Family AIDS: No Hx Family HIV: No Hx Family COPD: No Hx Family Hepatitis: No Hx Family Psychiatric Problems: No Hx Family Tuberculosis: No Physical Exam - Physical Examination Other Gen/Cons comments:: Agitated and restless; nonverbal Head: Atraumatic Eyes: Lids, conjuctiva normal Skin: Nl inspection ENMT: External ears, nose nl Neck: No nuchal rigidity Respiratory: Nl effort/Exclusion, Clear to Auscultation Cardio Vascular: RRR GI: No tenderness/rebounding/guarding, No organomegaly, No hernia, Normal BS's Extremities: Normal digits & nails Neuro/Psych: No focal deficits Misc: No paraspinal tenderness Labs/Radiology/EKG Results - Radiology Results Results: KUB after injection of Gastrografin showed the Gastrografin to be in the GI tract. Assessment - Assessment General Assessment: With use of a curved hemostat a 22 gauge G-tube was inserted in the stoma. Granulation tissue was noted at the stoma but no signs of infection. ED Septic Shock - . Is Septic Shock (SBP<90, OR Lactate>4 mmol\L) present?: No Reassessment (Disposition) - Reassessment Reassessment Condition:: Improved - Diagnosis Diagnosis:: G-tube replacement - Aftercare/Follow up Instructions Aftercare/Follow-Up Instructions:: Refer to Discharge Instructions - Patient Disposition Discharge/Transfer:: Home Admitted to:: [facility] Condition at Disposition:: Stable, Improved
[2016-07-27] MEDS ORDERED: Diatrizoate Meglumine/Diatri 30 mL Sol PO ONE (23:12)
--- NOTE | 2016-07-28 09:42 | Diagnostic Imaging Report ---
Upper GI with Gastrografin HISTORY: G-tube confirmation COMPARISON: Chest x-ray 07/10/2016 upper GI exam on 06/29/2016 FINDINGS: Sample Tailor view demonstrates moderate amount of stool with nonspecific gas-filled loops of bowel. A percutaneous gastric feeding tube is noted. Left basal density is noted. There is circular radiodensity projecting along the left iliac crest. The second image demonstrates contrast opacification of the stomach and small bowel loops. IMPRESSION: Intraluminal confirmation of patient's percutaneous gastric feeding tube. Left basal density possibly due to a left pleural effusion and/or infiltrate as seen on previous examination on 07/10/2016. Circular radiodensity projecting along the left iliac crest nonspecific and possibly outside of the patient. Please correlate clinically.
== END 2016-07-28 00:40 ==
LOC: ER 22:41
DX: Z43.1 Encounter for attention to gastrostomy (principal); I10 Essential (primary) hypertension; E07.9 Disorder of thyroid, unspecified; Z88.1 Allergy status to other antibiotic agents; Z88.0 Allergy status to penicillin; Z88.6 Allergy status to analgesic agent
CPT/HCPCS: 99284; 43760; 96372; 74240; J2060; A4217; Z7502; Z7610

== ENCOUNTER 2017-01-01 15:20 | Inpatient (IN) | payer MEDICARE, MEDICAID ==
--- NOTE | 2017-01-01 15:40 | ED Physician Chart ---
ED Chief Complaint/HPI - Patient Information Date Seen:: 01/01/17 Time Seen:: 15:30 Chief Complaint:: Diarrhea History of Present Illness:: onset x one day or diarrhea; no report of A/N/V/C, fever, chills, H/As, neck pain, C/P, SOB, Abd. Pain, or urinary s/s Allergies:: Allergies Allergy/AdvReac Type Severity Reaction Status Date / Time codeine Allergy Verified 06/15/16 11:47 erythromycin base Allergy Verified 06/15/16 11:47 levofloxacin [From Levaquin] Allergy Verified 06/15/16 11:47 Penicillins [PCN] Allergy Verified 06/15/16 11:47 Historian:: Patient, EMS Review:: Nurse's Note Reviewed, EMS run form Reviewed ED Review of Systems - Review of Systems General/Constitutional: No fever, No chills, No weight loss, No weakness, No diaphoresis, No edema, No loss of appetite Skin: No skin lesions, No rash, No bruising Head: No headache, No light-headedness Eyes: No loss of vision, No pain, No diplopia ENT: No earache, No nasal drainage, No sore throat, No tinnitus Neck: No neck pain, No swelling, No thyromegaly, No stiffness, No mass noted Cardio Vascular: No chest pain, No palpitations, No PND, No orthopnea, No edema Pulmonary: No SOB, No cough, No sputum, No wheezing GI: No nausea, No vomiting, Diarrhea, No pain, No melena, No hematochezia, No constipation, No hematemesis G/U: No dysuria, No frequency, No hematuria Musculoskeletal: No bone or joint pain, No back pain, No muscle pain Endocrine: No polyuria, No polydipsia Psychiatric: No prior psych history, No depression, No anxiety, No suicidal ideation, No homicidal ideation, No auditory hallucination, No visual hallucination Hematopoietic: No bruising, No lymphadenopathy Allergic/Immuno: No urticaria, No angioedema Neurological: No syncope, No focal symptoms, No weakness, No paresthesia, No headache, No seizure, No dizziness, Confusion, No vertigo ED Past Medical History - Past Medical History Obtainable: Yes Past Medical History: Dementia, Other (Cerebral Palsy) Family History: None Social History: Non Smoker, No Alcohol, No Drug Use, Single, Care Facility Surgical History: None Psychiatricy History: Dementia Medication: Reviewed Family Medical History - Family Member Mother History Unknown: Yes Ethnicity: Unknown Living Status: Unknown Hx Family Cancer: No Hx Family Coronary Artery Disease: No Hx Family Congestive Heart Failure: No Hx Family Hypertension: Yes Hx Family Stroke: No Hx Family Diabetes: No Hx Family Seizures: Yes Hx Family Dementia: No Hx Family AIDS: No Hx Family HIV: No Hx Family COPD: No Hx Family Hepatitis: No Hx Family Psychiatric Problems: No Hx Family Tuberculosis: No ED Physical Exam - Physical Examination General/Constitutional: Awake, Well-developed, well-nourished, Alert, No distress, GCS 15, Non-toxic appearing, Ambulatory Head: Atraumatic Eyes: Lids, conjuctiva normal, PERRL, EOMI Skin: Nl inspection, No rash, No skin lesions, No ecchymosis, Well hydrated, No lymphadenopathy ENMT: External ears, nose nl, TM canals nl, Nasal exam nl, Lips, teeth, gums nl , Oropharynx nl, Tonsils nl Neck: Nontender, Full ROM w/o pain, No JVD, No nuchal rigidity, No bruit, No mass, No stridor Respiratory: Nl effort/Exclusion, Clear to Auscultation, No Wheeze/Rhonchi/Rales Cardio Vascular: RRR, No murmur, gallop, rubs, NL S1 S2, Carotid/Femoral/Distal pulses equal bilaterally GI: No tenderness/rebounding/guarding, No organomegaly, No hernia, Normal BS's, Nondistended, No mass/bruits, No McBurney tenderness : No CVA tenderness Extremities: No tenderness or effusion, Full ROM, normal strength in all extremities, No edema, Normal digits & nails Neuro/Psych: Alert/oriented, DTR's symmetric, Normal sensory exam, Normal motor strength, Judgement/insight normal, Mood normal, Normal gait, No focal deficits Misc: Normal back, No paraspinal tenderness ED Labs/Radiology/EKG Results - Lab Results Comments:: WBC: 14.1; LA: 3.37; Na+: 150; BUN: 28; Elevated Amylase and Lipase; Elevated LFTs - EKG Interpretations EKG Time:: 17:00 Rate & Rhythm: 109; ST Comments:: T-Wave Inversions; non-specific st-t changes ED Septic Shock - . Is Septic Shock (SBP<90, OR Lactate>4 mmol\L) present?: No ED Reassessment (Disposition) - Reassessment Reassessment Condition:: Improved - Diagnosis Diagnosis:: Dx: Myocardial Ischemia; Tachyarrythmias; Hypernatremia; Dehydration; Leukocytosis; Pancreatitis; Sepsis - Aftercare/Follow up Instructions Aftercare/Follow-Up Instructions:: Counseled pt regarding lab results/diagnosis & need follow up, Counseled pt & family regarding lab results/diagnosis & need follow up - Patient Disposition Discharge/Transfer:: Acute Care w/in this hosp Accepting Physician:: Dr. Martinez Time Called:: 1839 Time Responded:: 18:40 Admitted to:: Telemetry Spoke to:: Dr. Martinez Admitting Medical Physician:: Dr. Martinez Condition at Disposition:: Stable, Improved
[2017-01-01] MEDS ORDERED: Sodium Chloride 0.9% 1,000 ML IV ONE (15:41)
[2017-01-01] MEDS ORDERED: Haloperidol Lactate 5 mg/mL 1mL Vial IVP ONE (15:58)
[2017-01-01] MEDS ORDERED: Haloperidol Lactate 5 mg/mL 1mL Vial ONE (16:02)
[2017-01-01] MEDS ORDERED: Haloperidol Lactate 5 mg/mL 1mL Vial IM STA (16:08)
[2017-01-01 16:48] LABS: HEMATOCRIT 48.1 % (41.0-60); HEMOGLOBIN 16.6 gm/dL (12-16); MEAN CELL VOLUME 102.3 fl (80-99); MEAN CORPUSCULAR HEMOGLOBIN 35.2 pg (26.0-30.0); MEAN CORPUSCULAR HGB CONC 34.4 pg (28.0-36.0); MEAN PLATELET VOLUME 8.4 fl; RED BLOOD COUNT 4.71 Mil/cmm (4.30-5.70); RED CELL DISTRIBUTION WIDTH 11.8 % (11.5-20.0)
[2017-01-01 17:05] LABS: PLATELET COUNT 319 Th/cmm (150-400); WHITE BLOOD COUNT 14.1 Th/cmm (4.8-10.8)
[2017-01-01 17:12] LABS: INR 1.04 (0.5-1.4); PROTHROMBIN TIME (TEST) 10.8 SECONDS (9.5-11.5)
[2017-01-01 17:13] LABS: AMYLASE SERUM 131 U/L (29-103); LIPASE 147 U/L (11-82)
[2017-01-01 17:15] LABS: ALB/GLOB RATIO 1.1 (1.0-1.8); ALKALINE PHOSPHATASE 219 U/L (34-104); ANION GAP 9.3 (7.0-16.0); BILIRUBIN,TOTAL 0.4 mg/dL (0.3-1.0); BUN - UREA NITROGEN 28 mg/dL (7-25); CALCIUM SERUM 10.1 mg/dL (8.6-10.3); CHLORIDE 118 mEq/L (98-107); CHOLESTEROL 182 mg/dL (<200); CREATININE - SERUM 0.8 mg/dL (0.7-1.3); GLUCOSE 92 mg/dL (70-105); POTASSIUM SERUM 4.3 mEq/L (3.5-5.1); SGOT 22 U/L (13-39); SGPT/ALT 25 U/L (7-52); SODIUM SERUM 150 mEq/L (136-145); TRIGLYCERIDES 146 mg/dL (<150)
[2017-01-01 17:31] LABS: EOSINOPHIL 1 % (0-5); NEUTROPHILS 81 % (40-80); PLATELET ESTIMATE ADEQUATE (NORMAL)
[2017-01-02 06:33] LABS: % BASOPHILS 0.4 % (0.0-2.0); % EOSINOPHILS 1.2 % (0.0-5.0); % LYMPHOCYTES 20.4 % (20.0-50.0); % MONOCYTES 12.9 % (2.0-10.0); % NEUTROPHILS 65.1 % (40.0-80.0); HEMATOCRIT 48.7 % (41.0-60); HEMOGLOBIN 16.5 gm/dL (12-16); MEAN CELL VOLUME 101.7 fl (80-99); MEAN CORPUSCULAR HEMOGLOBIN 34.4 pg (26.0-30.0); MEAN CORPUSCULAR HGB CONC 33.9 pg (28.0-36.0); MEAN PLATELET VOLUME 9.5 fl; NEUTROPHILE ABSOLUTE 5.9 Th/cmm (1.8-8.0); PLATELET COUNT 279 Th/cmm (150-400); RED BLOOD COUNT 4.79 Mil/cmm (4.30-5.70); RED CELL DISTRIBUTION WIDTH 12.1 % (11.5-20.0)
[2017-01-02 06:36] LABS: WHITE BLOOD COUNT 9.1 Th/cmm (4.8-10.8)
[2017-01-02 06:59] LABS: ALB/GLOB RATIO 1.1 (1.0-1.8); ALKALINE PHOSPHATASE 198 U/L (34-104); ANION GAP 10.3 (7.0-16.0); BILIRUBIN,TOTAL 0.5 mg/dL (0.3-1.0); BUN - UREA NITROGEN 25 mg/dL (7-25); BUN/CREATININE RATIO 35.7; CALCIUM SERUM 9.7 mg/dL (8.6-10.3); CARBON DIOXIDE 26.7 mEq/L (21.0-31.0); CHLORIDE 116 mEq/L (98-107); CREATININE - SERUM 0.7 mg/dL (0.7-1.3); MAGNESIUM 2.6 mg/dL (1.9-2.7); SGOT 25 U/L (13-39); SGPT/ALT 20 U/L (7-52); SODIUM SERUM 149 mEq/L (136-145)
[2017-01-02 07:01] LABS: GLUCOSE 106 mg/dL (70-105)
--- NOTE | 2017-01-02 10:10 | History & Physical ---
ADMIT DATE: 01/02/2017 CHIEF COMPLAINT: Diarrhea x1 day. HISTORY OF PRESENT ILLNESS: This 61-year-old male with history of mental retardation/cerebral palsy, dementia, history of CAD, seizure disorder, hypertension, and hypothyroidism, who presented from [facility] with a 1-day history of multiple episodes of diarrhea. The patient is nonverbal and but per records, he had 1 day of the above-mentioned complaint, but there were no reports of nausea,vomiting, fever, chills, shortness of breath, chest pain, or abdominal pain. Pertinent findings at the ER include a white count of 14.1 with 81% neutrophils, sodium 150, chloride 118, BUN 28, and lactic acid of 3.37. Also, his amylase and lipase were noted to be slightly elevated at 131 and 147 respectively. He was also noted to be tachycardic and an EKG did show a sinus tachycardia of 109. He has been admitted to a telemetry painting for further management and care. PAST MEDICAL HISTORY: As noted above. PAST SURGICAL HISTORY: Unknown. FAMILY HISTORY: Likely noncontributory to this admission. SOCIAL HISTORY: No tobacco, ETOH, or illicit drug usage. Lives in assisted living facility. ALLERGIES: Multiple including antibiotics: Codeine, erythromycin, Levaquin, and penicillins. REVIEW OF SYSTEMS: Unable to be done given the patient's condition. PHYSICAL EXAMINATION: VITAL SIGNS: Temperature 98.6, pulse 95, respirations 18, blood pressure 140/73, and satting 97% on room air. GENERAL: A well-nourished mentally disabled gentleman, not in acute distress. HEENT: Oropharynx, he has got dry mucous membranes. NECK: There is no JVD or LAD. CARDIOVASCULAR: Regular rate and rhythm without any murmurs. LUNGS: Decreased, but clear to auscultation bilaterally. ABDOMEN: Soft, supple. There is mild diffuse tenderness to palpation, but no guarding. No peritoneal signs. NABS. EXTREMITIES: Lower extremities, no edema. NEUROLOGIC: Difficult to assess, but his cranial nerves II through XII are grossly within normal limits. LABORATORY DATA AND DIAGNOSTIC STUDIES: On admission, white count 14.1 and H and H 16/48 with a platelet count of 319. Sodium 150, potassium 4.3, chloride 118, CO2 27, BUN 28, creatinine 0.8, and glucose 92. Lactic acid was 3.37 and magnesium 2.6. LFTs were within normal limits. Alkaline phosphatase 219. TSH was within normal limits. ASSESSMENT: 1. Diarrhea/abdominal pain. Differential includes acute gastroenteritis versus diverticulitis/colitis versus pancreatitis given his labs. 2. Leukocytosis. 3. Hypernatremia. 4. Azotemia/dehydration. 5. History of hypertension. 6. History of coronary artery disease. 7. History of seizure disorder. 8. History of hypothyroidism. 9. Mental retardation, cerebral palsy. PLAN: The patient has been admitted to the tele painting for further management and care. He has been placed on IV fluids, but at this time, the patient has no IV line (hard stick), therefore, I have asked for a PICC line to be placed. He has been placed on vancomycin given his multiple antibiotic allergies and has been pancultured. He will remain on his other medications as scheduled and labs will be done on a daily basis. JOB# [id number] ROSSI
[2017-01-02] MEDS: D5-0.45NS 1,000 ML IV SCH (16:24)
[2017-01-02] MEDS ORDERED: CARBAMAZEPINE 600 MG GT SCH (17:00)
[2017-01-03] MEDS: Levothyroxine 0.1 Mg Tab GT SCH (06:36)
[2017-01-03] MEDS: D5-0.45NS 1,000 ML IV SCH ×2 (06:40→21:53)
[2017-01-03] MEDS ORDERED: CARBAMAZEPINE 300 MG GT SCH (09:00)
[2017-01-03] MEDS: Sulfamethoxazole/TMP 800/160mg Tab PO SCH ×2 (11:11→16:25)
[2017-01-04 06:33] LABS: AMYLASE SERUM 422 U/L (29-103); BUN - UREA NITROGEN 25 mg/dL (7-25); BUN/CREATININE RATIO 22.7; CALCIUM SERUM 8.6 mg/dL (8.6-10.3); CARBON DIOXIDE 23.1 mEq/L (21.0-31.0); CHLORIDE 116 mEq/L (98-107); CREATININE - SERUM 1.1 mg/dL (0.7-1.3); GLUCOSE 111 mg/dL (70-105); LIPASE 734 U/L (11-82); MAGNESIUM 2.3 mg/dL (1.9-2.7); POTASSIUM SERUM 3.1 mEq/L (3.5-5.1); SODIUM SERUM 146 mEq/L (136-145)
[2017-01-04 06:39] LABS: % BASOPHILS 0.2 % (0.0-2.0); % LYMPHOCYTES 12.4 % (20.0-50.0); % MONOCYTES 11.9 % (2.0-10.0); % NEUTROPHILS 73.5 % (40.0-80.0); HEMATOCRIT 44.9 % (41.0-60); HEMOGLOBIN 14.9 gm/dL (12-16); MEAN CELL VOLUME 102.3 fl (80-99); MEAN CORPUSCULAR HEMOGLOBIN 33.9 pg (26.0-30.0); MEAN CORPUSCULAR HGB CONC 33.1 pg (28.0-36.0); MEAN PLATELET VOLUME 9.4 fl; NEUTROPHILE ABSOLUTE 7.7 Th/cmm (1.8-8.0); PLATELET COUNT 247 Th/cmm (150-400); RED BLOOD COUNT 4.38 Mil/cmm (4.30-5.70); RED CELL DISTRIBUTION WIDTH 12.2 % (11.5-20.0); WHITE BLOOD COUNT 10.4 Th/cmm (4.8-10.8)
[2017-01-04] MEDS: Levothyroxine 0.1 Mg Tab GT SCH (06:44)
[2017-01-04] MEDS ORDERED: Potassium Chloride Elixir 20 mEq /15 mL UDC GT ONE (08:30)
[2017-01-04] MEDS: Sulfamethoxazole/TMP 800/160mg Tab PO SCH (08:58)
--- NOTE | 2017-01-11 03:56 | Discharge Summary ---
DATE OF DISCHARGE: 01/04/2017 ADMITTING DIAGNOSES: 1. Diarrhea, abdominal pain, rule out gastroenteritis versus less likely diverticulitis, colitis. 2. Leukocytosis. 3. Hyponatremia. 4. Azotemia, dehydration. SECONDARY DIAGNOSES: Include history of hypertension, history of CAD, history of seizure disorder, history of hypothyroidism, history of mental retardation/cerebral palsy. DISCHARGE DIAGNOSES: 1. Diarrhea, abdominal pain, likely acute gastroenteritis-resolved. 2. Leukocytosis, resolved. 3. Hyponatremia, improved. 4. Azotemia, dehydration, improved. CONSULTANTS: There was no consultants used during this admission. MAJOR PROCEDURES: PICC line due to poor IV access done on 01/01/2017. BRIEF HOSPITAL COURSE: A 61-year-old gentleman, resident of [facility] with the above-mentioned diagnosis, presented to the ER with 1-day history of nausea, vomiting, diarrhea, fever, chills and some shortness of breath. On admission, his white count was noted to be 14,000 with 81% neutrophils. Sodium 150, BUN 28, lactic acid level of 3.37. The patient was admitted and was placed on IV fluids, IV antibiotics and supportive care with improvement of his symptoms. His vital signs were noted to be stable throughout his hospital stay and his labs showed improvement, i.e., white count went from 14.1 to 9.1 on 01/02/2017. His sodium improved to a level of 149 by 01/04/2017 and his BUN improved from 28 to 25. Of note, his lipase and amylase were noted to be somewhat elevated during his admission, but he was able to tolerate p.o. without any nausea, vomiting and as noted above. His diarrhea did improve. DISCHARGE MEDICATIONS: Include Cipro 250 b.i.d. x10 days. Please refer to the MAR for other medications. DISPO: pt was DC back to [facility] under the care of Dr. Prince. JOB# [id number] ROSSI
== END 2017-01-04 10:20 | disposition home or self-care (01) | DRG 871 ==
LOC: ER 15:20 → TELE 19:07 → MSI 01-03 12:03
PROVIDERS: ADMIT Internal Medicine; ATTEND Internal Medicine
PROC: 05HY33Z Insertion of Infusion Device into Upper Vein, Percutaneous Approach (ICD-10-PCS; principal; 2017-01-02)
DX: A41.9 Sepsis, unspecified organism (principal); K85.90 Acute pancreatitis without necrosis or infection, unspecified; E87.0 Hyperosmolality and hypernatremia; F03.90 Unspecified dementia, unspecified severity, without behavioral disturbance, psychotic disturbance, mood disturbance, and anxiety; K52.9 Noninfective gastroenteritis and colitis, unspecified; E86.0 Dehydration; G40.909 Epilepsy, unspecified, not intractable, without status epilepticus; I10 Essential (primary) hypertension; E03.9 Hypothyroidism, unspecified; I25.10 Atherosclerotic heart disease of native coronary artery without angina pectoris; G80.9 Cerebral palsy, unspecified; F79 Unspecified intellectual disabilities; Z88.5 Allergy status to narcotic agent; Z88.1 Allergy status to other antibiotic agents; Z88.0 Allergy status to penicillin; Z82.49 Family history of ischemic heart disease and other diseases of the circulatory system; I25.9 Chronic ischemic heart disease, unspecified
CPT/HCPCS: 36415-UA; 80048-TC; 80053-TC; 80061-TC; 82150-TC; 82550-TC; 83605; 83690-TC; 83735-TC; 83880-TC; 84443-TC; 84484-TC; 85007-TC; 85025-TC; 85027-TC; 85610-TC; 93005; 94760; 96375; J1200; J1630; J2060; J2930; J3370; Z7610

== ENCOUNTER 2017-01-29 16:05 | Inpatient (IN) | payer MEDICARE, MEDICAID ==
--- NOTE | 2017-01-29 16:17 | ED Physician Chart ---
ED Chief Complaint/HPI - Patient Information Date Seen:: 01/29/17 Time Seen:: 16:00 Chief Complaint:: Diarrhea History of Present Illness:: onset x 3 days of diarrhea with weight loss x 2 weeks; no report of trauma, H/As , S/T, neck pain, C/P, SOB, Abd. Pain, A/N/V/C, fever, chills, or uurinary s/s Allergies:: Allergies Allergy/AdvReac Type Severity Reaction Status Date / Time codeine Allergy Verified 06/15/16 11:47 erythromycin base Allergy Verified 06/15/16 11:47 levofloxacin [From Levaquin] Allergy Verified 06/15/16 11:47 Penicillins [PCN] Allergy Verified 06/15/16 11:47 vancomycin Allergy Verified 01/03/17 20:44 Historian:: Patient, EMS Review:: Nurse's Note Reviewed, EMS run form Reviewed <Scooter Long - Last Filed: 01/29/17 16:21> - Patient Information Allergies:: Allergies Allergy/AdvReac Type Severity Reaction Status Date / Time codeine Allergy Verified 01/29/17 16:31 erythromycin base Allergy Verified 01/29/17 16:31 levofloxacin [From Levaquin] Allergy Verified 01/29/17 16:31 Penicillins [PCN] Allergy Verified 01/29/17 16:31 Vitals:: Vital Signs - 8 hr 01/29/17 01/29/17 16:05 20:07 Temp 97.4 F 97.8 F HR 88 80 RR 16 18 BP 119/57 O2 Sat % 97 100 <Blake Pond - Last Filed: 01/29/17 21:50> ED Review of Systems - Review of Systems General/Constitutional: No fever, No chills, Weight loss, Weakness, No diaphoresis, No edema, No loss of appetite Skin: No skin lesions, No rash, No bruising Head: No headache, No light-headedness Eyes: No loss of vision, No pain, No diplopia ENT: No earache, No nasal drainage, No sore throat, No tinnitus Neck: No neck pain, No swelling, No thyromegaly, No stiffness, No mass noted Cardio Vascular: No chest pain, No palpitations, No PND, No orthopnea, No edema Pulmonary: No SOB, No cough, No sputum, No wheezing GI: No nausea, No vomiting, Diarrhea, No pain, No melena, No hematochezia, No constipation, No hematemesis G/U: No dysuria, No frequency, No hematuria, No nacturia Musculoskeletal: No bone or joint pain, No back pain, No muscle pain Endocrine: No polyuria, No polydipsia Psychiatric: No prior psych history, No depression, No anxiety, No suicidal ideation, No homicidal ideation, No auditory hallucination, No visual hallucination Hematopoietic: No bruising, No lymphadenopathy Allergic/Immuno: No urticaria, No angioedema Neurological: No syncope, No focal symptoms, Weakness, No paresthesia, No headache, No seizure, No dizziness, No confusion, No vertigo <ShantiScooter singh [facility] Filed: 01/29/17 16:21> ED Past Medical History - Past Medical History Obtainable: Yes Past Medical History: PUD/GERD, Other (Cerebral Palsy; MR) Family History: HTN Social History: Non Smoker, No Alcohol, No Drug Use, Single, Care Facility Surgical History: None Psychiatricy History: Dementia Medication: Reviewed <ShantijesúsScooter munoz [facility] Filed: 01/29/17 16:21> Family Medical History - Family Member Mother History Unknown: Yes Ethnicity: Unknown Living Status: Unknown Hx Family Cancer: No Hx Family Coronary Artery Disease: No Hx Family Congestive Heart Failure: No Hx Family Hypertension: Yes Hx Family Stroke: No Hx Family Diabetes: No Hx Family Seizures: Yes Hx Family Dementia: No Hx Family AIDS: No Hx Family HIV: No Hx Family COPD: No Hx Family Hepatitis: No Hx Family Psychiatric Problems: No Hx Family Tuberculosis: No <MercedesScooter [facility] Filed: 01/29/17 16:21> ED Physical Exam - Physical Examination General/Constitutional: Awake, Well-developed, well-nourished, Alert, No distress, GCS 15, Non-toxic appearing, Ambulatory Head: Atraumatic Eyes: Lids, conjuctiva normal, PERRL, EOMI Skin: Nl inspection, No rash, No skin lesions, No ecchymosis, No lymphadenopathy Other Skin comments:: Poor turgor with dry mucous membranes ENMT: External ears, nose nl, TM canals nl, Nasal exam nl, Lips, teeth, gums nl , Oropharynx nl, Tonsils nl Neck: Nontender, Full ROM w/o pain, No JVD, No nuchal rigidity, No bruit, No mass, No stridor Respiratory: Nl effort/Exclusion, Clear to Auscultation, No Wheeze/Rhonchi/Rales Cardio Vascular: RRR, No murmur, gallop, rubs, NL S1 S2, Carotid/Femoral/Distal pulses equal bilaterally GI: No tenderness/rebounding/guarding, No organomegaly, No hernia, Normal BS's, Nondistended, No mass/bruits, No McBurney tenderness : No CVA tenderness Extremities: No tenderness or effusion, Full ROM, normal strength in all extremities, No edema, Normal digits & nails Neuro/Psych: Alert/oriented, DTR's symmetric, Normal sensory exam, Normal motor strength, Judgement/insight normal, Mood normal, Normal gait, No focal deficits Other Neuro/Psych comments:: Disoriented and confused Misc: Normal back, No paraspinal tenderness <Scooter Long - Last Filed: 01/29/17 16:21> ED Labs/Radiology/EKG Results - Lab Results Results: Laboratory Tests 01/29/17 01/29/17 01/29/17 18:50 18:50 18:50 WBC 9.8 RBC 4.77 Hgb 16.4 Hct 48.7 MCV 102.1 H MCH 34.4 H MCHC Differential 33.7 RDW 12.5 Plt Count 330 D MPV 8.6 Neutrophils % 71.9 Lymphocytes % 20.1 Monocytes % 6.7 Eosinophils % 0.8 Basophils % 0.5 PT 11.2 INR 1.08 PTT (Actin FS) 26.1 Sodium 148 H Potassium 4.7 Chloride 118 H Carbon Dioxide 20.0 L Anion Gap 14.7 BUN 32 H Creatinine 0.8 Est GFR ( Amer) > 60.0 Est GFR (Non-Af Amer) > 60.0 BUN/Creatinine Ratio 40.0 Glucose 112 H Whole Bld Lactic Acid Calcium 9.8 Total Bilirubin 0.3 AST 22 ALT 24 Alkaline Phosphatase 198 H Creatine Kinase 61 Troponin I Total Protein 8.0 Albumin 4.4 Globulin 3.6 Albumin/Globulin Ratio 1.2 Urine Source Urine Color Urine Clarity Urine pH Ur Specific [place] Urine Protein Urine Glucose (UA) Urine Ketones Urine Blood Urine Nitrate Urine Bilirubin Urine Urobilinogen Ur Leukocyte Esterase Urine RBC Urine WBC Ur Epithelial Cells Urine Bacteria 01/29/17 01/29/17 01/29/17 18:50 20:00 21:03 WBC RBC Hgb Hct MCV MCH MCHC Differential RDW Plt Count MPV Neutrophils % Lymphocytes % Monocytes % Eosinophils % Basophils % PT INR PTT (Actin FS) Sodium Potassium Chloride Carbon Dioxide Anion Gap BUN Creatinine Est GFR ( Amer) Est GFR (Non-Af Amer) BUN/Creatinine Ratio Glucose Whole Bld Lactic Acid 4.21 H* 2.73 H* Calcium Total Bilirubin AST ALT Alkaline Phosphatase Creatine Kinase Troponin I < 0.01 L Total Protein Albumin Globulin Albumin/Globulin Ratio Urine Source [place] Urine Color RED Urine Clarity SLIGHT CLOUDY Urine pH 6.0 Ur Specific [place] >= 1.030 Urine Protein 30 H Urine Glucose (UA) 250 H Urine Ketones 15 H Urine Blood LARGE H Urine Nitrate POSITIVE H Urine Bilirubin SMALL H Urine Urobilinogen 0.2 Ur Leukocyte Esterase NEGATIVE Urine RBC >100 H Urine WBC 6-10 H Ur Epithelial Cells OCCASIONAL Urine Bacteria FEW - Radiology Results Results: CT abdomen and pelvis distended gallbladder possible cholelithiasis PEG tube balloon is inflated in duodenum no hydronephrosis no free fluid fluid distended sigmoid and rectum no diverticulitis RAD READ <Blake Pond - Last Filed: 01/29/17 21:50> ED Assessment - Assessment General Assessment: pt in stable condition 4 month hx of 31 pound weight loss and diarrhea hx of c. difficile <Blake Pond - Last Filed: 01/29/17 21:50> ED Septic Shock - . Is Septic Shock (SBP<90, OR Lactate>4 mmol\L) present?: Yes - <6hrs of presentation: Vital Signs: Vital Signs - 8 hr 01/29/17 01/29/17 16:05 20:07 Temp 97.4 F 97.8 F HR 88 80 RR 16 18 BP 119/57 O2 Sat % 97 100 Assessment of Lungs: Lung CTA bilateral Assessment of Heart: RRR, No Rub, No Murmur, Documented in PE EKG Interpretation: NSR Capillary refill evaluation: Capillary refill < 2 secs, Documented in PE Skin Exam: Warm, Dry, No Edema - Time of Reassessment Time of Reassessment: 21:50 (pt stable) <Blake Pond - Last Filed: 01/29/17 21:50> ED Reassessment (Disposition) - Diagnosis Diagnosis:: Dx: Diarrhea; AGE; Dehydration; Weight Loss; Pseudomembranous Colitis <Scooter Long - Last Filed: 01/29/17 16:21> - Reassessment Reassessment:: pt in stable condition, vital signs are stable and WBC is within normal range however lactic acid is elevated at 4.2 wlll treat as near sepsis. pt to receive IV fluid bolus and repeat lactate IV antibiotics administered after blood culture Reassessment Condition:: Improved - Diagnosis Diagnosis:: Near sepsis, GI source - Patient Disposition Discharge/Transfer:: Acute Care w/in this hosp Admitted to:: Telemetry Admitting Medical Physician:: Glenys Martinez Time:: 22:00 Condition at Disposition:: Stable, Improved <Blake Pond - Last Filed: 01/29/17 21:50>
[2017-01-29] MEDS ORDERED: Sodium Chloride 0.9% 1,000 ML IV ONE (17:59)
[2017-01-29] MEDS ORDERED: Haloperidol Lactate 5 mg/mL 1mL Vial IM STA (18:01)
[2017-01-29] MEDS ORDERED: Haloperidol Lactate 5 mg/mL 1mL Vial ONE (18:05)
[2017-01-29 18:58] LABS: % BASOPHILS 0.5 % (0.0-2.0); % EOSINOPHILS 0.8 % (0.0-5.0); % LYMPHOCYTES 20.1 % (20.0-50.0); % MONOCYTES 6.7 % (2.0-10.0); % NEUTROPHILS 71.9 % (40.0-80.0); EOSINOPHILE ABSOLUTE 0.1 Th/cmm (0.1-0.4); HEMATOCRIT 48.7 % (41.0-60); HEMOGLOBIN 16.4 gm/dL (12-16); MEAN CELL VOLUME 102.1 fl (80-99); MEAN CORPUSCULAR HEMOGLOBIN 34.4 pg (26.0-30.0); MEAN CORPUSCULAR HGB CONC 33.7 pg (28.0-36.0); MEAN PLATELET VOLUME 8.6 fl; MONOCYTE ABSOLUTE 0.7 Th/cmm (0.3-1.0); RED BLOOD COUNT 4.77 Mil/cmm (4.30-5.70); RED CELL DISTRIBUTION WIDTH 12.5 % (11.5-20.0); WHITE BLOOD COUNT 9.8 Th/cmm (4.8-10.8)
[2017-01-29 19:00] LABS: PLATELET COUNT 330 Th/cmm (150-400)
[2017-01-29 19:12] LABS: INR 1.08 (0.5-1.4); PROTHROMBIN TIME (TEST) 11.2 SECONDS (9.5-11.5)
[2017-01-29 19:16] LABS: ALB/GLOB RATIO 1.2 (1.0-1.8); ALBUMIN 4.4 gm/dL (4.2-5.5); ALKALINE PHOSPHATASE 198 U/L (34-104); ANION GAP 14.7 (7.0-16.0); BILIRUBIN,TOTAL 0.3 mg/dL (0.3-1.0); BUN - UREA NITROGEN 32 mg/dL (7-25); CALCIUM SERUM 9.8 mg/dL (8.6-10.3); CHLORIDE 118 mEq/L (98-107); CREATININE - SERUM 0.8 mg/dL (0.7-1.3); CREATININE KINASE 61 U/L (30-223); GFR AFRICAN-AMERICAN > 60.0 ml/min (>90); GFR NON AFRICAN-AMERICAN > 60.0 ml/min; GLUCOSE 112 mg/dL (70-105); POTASSIUM SERUM 4.7 mEq/L (3.5-5.1); SGOT 22 U/L (13-39); SGPT/ALT 24 U/L (7-52); SODIUM SERUM 148 mEq/L (136-145)
[2017-01-29 19:22] LABS: TROP I < 0.01 ng/mL (0.01-0.05)
[2017-01-29 20:22] LABS: URINE MICROSCOPIC INDICATED? YES; URINE SOURCE MIDSTREAM
[2017-01-29 20:24] LABS: URINE BILIRUBIN SMALL (NEGATIVE); URINE BLOOD LARGE (NEGATIVE); URINE GLUCOSE (UA) 250 mg/dL (NEGATIVE); URINE KETONE 15 mg/dL (NEGATIVE); URINE LEUKOCYTE ESTERASE NEGATIVE (NEGATIVE); URINE NITRATE POSITIVE (NEGATIVE); URINE PROTEIN 30 mg/dL (NEGATIVE); URINE UROBILINOGEN 0.2 E.U./dL (0.2 - 1.0)
[2017-01-29 20:38] LABS: URINE COLOR RED
[2017-01-29 20:39] LABS: URINE CLARITY SLIGHT CLOUDY (CLEAR)
[2017-01-29 20:42] LABS: URINE BACTERIA FEW /hpf (NONE SEEN); URINE EPITHELIAL CELLS OCCASIONAL /lpf (FEW); URINE RBC >100 /hpf (0-5)
[2017-01-29] MEDS: metroNIDAZOLE 500mg/NS 100mL 500 MG/100 ML BAG IV SCH (23:40)
[2017-01-29] MEDS: Sodium Chloride 0.9% 1,000 ML IV SCH (23:45)
[2017-01-30 02:20] VITALS: BP 101/65
[2017-01-30 06:18] LABS: % BASOPHILS 0.4 % (0.0-2.0); % EOSINOPHILS 2.1 % (0.0-5.0); % LYMPHOCYTES 30.5 % (20.0-50.0); % MONOCYTES 10.8 % (2.0-10.0); % NEUTROPHILS 56.2 % (40.0-80.0); EOSINOPHILE ABSOLUTE 0.2 Th/cmm (0.1-0.4); LYMPHOCYTE ABSOLUTE 2.6 Th/cmm (1.5-3.0); MEAN CELL VOLUME 102.6 fl (80-99); MEAN CORPUSCULAR HEMOGLOBIN 34.2 pg (26.0-30.0); MEAN CORPUSCULAR HGB CONC 33.3 pg (28.0-36.0); MEAN PLATELET VOLUME 8.1 fl; MONOCYTE ABSOLUTE 0.9 Th/cmm (0.3-1.0); NEUTROPHILE ABSOLUTE 4.8 Th/cmm (1.8-8.0); PLATELET COUNT 284 Th/cmm (150-400); RED CELL DISTRIBUTION WIDTH 12.7 % (11.5-20.0); WHITE BLOOD COUNT 8.5 Th/cmm (4.8-10.8)
[2017-01-30 06:37] LABS: ALB/GLOB RATIO 1.3 (1.0-1.8); ALBUMIN 3.8 gm/dL (4.2-5.5); ALKALINE PHOSPHATASE 170 U/L (34-104); BILIRUBIN,TOTAL 0.3 mg/dL (0.3-1.0); BUN - UREA NITROGEN 25 mg/dL (7-25); CALCIUM SERUM 9.4 mg/dL (8.6-10.3); CARBON DIOXIDE 24.3 mEq/L (21.0-31.0); CHLORIDE 118 mEq/L (98-107); CREATININE - SERUM 0.7 mg/dL (0.7-1.3); GFR AFRICAN-AMERICAN > 60.0 ml/min (>90); GFR NON AFRICAN-AMERICAN > 60.0 ml/min; GLUCOSE 101 mg/dL (70-105); MAGNESIUM 2.1 mg/dL (1.9-2.7); POTASSIUM SERUM 4.3 mEq/L (3.5-5.1); SGOT 20 U/L (13-39); SGPT/ALT 20 U/L (7-52); SODIUM SERUM 149 mEq/L (136-145); TOTAL PROTEIN,SERUM 6.8 gm/dL (6.0-8.3)
[2017-01-30] MEDS: metroNIDAZOLE 500mg/NS 100mL 500 MG/100 ML BAG IV SCH (07:07)
[2017-01-30] MEDS: Levothyroxine 0.1 Mg Tab GT SCH (07:07)
[2017-01-30 07:23] LABS: AMYLASE SERUM 82 U/L (29-103); LIPASE 84 U/L (11-82)
--- NOTE | 2017-01-30 07:52 | Diagnostic Imaging Report ---
Exam: CT examination abdomen pelvis. HISTORY: Abdominal pain diarrhea Total DLP equals 446 CTDI equals 9.1 Findings: Multiple contiguous thin section of the abdomen pelvis obtained from lower thorax to the pubic symphysis without administration intravenous or oral prior studies available comparison. The study demonstrates normal aeration of lung parenchyma the bases. The liver and spleen are intact. The adrenal glands are normal. The kidneys demonstrate no evidence of obstructive uropathy or nephrolithiasis. 2 cm right renal cyst is noted. There is a question of cholelithiasis. Clinical correlation ultrasound examination abdomen might helpful. Gastrostomy tube is noted with the balloon inflated in the proximal duodenum. The visualized pancreas is normal. No free fluid appreciated. There is no evidence for diverticulitis. The urinary bladder is intact. Bony structures demonstrate no evidence for lytic or blastic lesions. IMPRESSION: 1. Gastrostomy tube balloon in the duodenum. 2. Question of cholelithiasis. 3. Fluid distended sigmoid colon.
--- NOTE | 2017-01-30 08:06 | Diagnostic Imaging Report ---
CHEST X-RAY: AP view INDICATION: pain COMPARISON: Previous chest x-ray 07/29/2016 and 07/10/2016 FINDINGS: Chronic changes are seen with low lung volumes. Left basal densities noted. Mild cardiomegaly is noted. Degenerative changes of spine are noted. There is evidence of old trauma to the right shoulder with large callus formation. IMPRESSION: Left basal density which may be due to superimposition of soft tissue structures, however, a small left effusion cannot be excluded. No definite focal consolidation is identified Mild cardiomegaly.
[2017-01-30] MEDS ORDERED: Multivitamin w/ Minerals Tab GT SCH (09:00)
[2017-01-30] MEDS ORDERED: ISOSORBIDE DINITRATE 5 MG GT SCH (09:00)
[2017-01-30] MEDS: Multivitamin Tab GT SCH (09:17)
[2017-01-30] MEDS: Sulfamethoxazole/TMP 800/160mg Tab GT SCH ×2 (09:18→16:41)
--- NOTE | 2017-01-30 09:52 | History & Physical ---
ADMIT DATE: CHIEF COMPLAINT: Diarrhea x 3-day and weight loss about 40 pounds over the last 3 months. HISTORY OF PRESENT ILLNESS: The patient is a 61-year-old gentleman with severe mental retardation, cerebral palsy, peptic ulcer disease/acid reflux disease, essential hypertension, CAD, history of osteoarthritis with history of PEG placement secondary to dysphagia who has been admitted to this facility multiple times for pneumonias and UTIs, presented from [facility] with a 3-day history of multiple episodes of loose BMs/diarrhea. A stool culture collected on the of this month shows positive results for C. diff. The patient was not started on any antibiotics and was transferred to this facility to the ER for further eval and treatment. PERTINENT FINDINGS ON ADMISSION: Include sodium 148, a BUN of 32 and a lactic acid of 4.21. There was also a CT of the abdomen and pelvis done showin. Gastrostomy tube balloon in the duodenum. 2. Questionable cholelithiasis. 3. Fluid distended sigmoid colon. The patient has been admitted to the medical floor for further management and care. There is no report of fever, chills, nausea or vomiting. As noted above per records from the assisted living facility, there has been a 40-pound weight loss in the last 3 months or so. The patient was scheduled to be seen by GI in the following week or so. PAST MEDICAL HISTORY: As noted above. Seizure disorders and hypothyroidism. PAST SURGICAL HISTORY: Include a PEG placement. FAMILY HISTORY: Likely noncontributory to this admission. SOCIAL HISTORY: No tobacco, ETOH or illicit drug usage. He lives at [facility] under the care of Dr. Prince. ALLERGIES: Multiple drug allergies including CODEINE, ERYTHROMYCIN, LEVAQUIN, PENICILLINS and possibly VANCOMYCIN. OUTPATIENT MEDICATIONS: Dulcolax 10 mg per rectum every 96 hours p.r.n. for constipation, Fleet Enema every 96 hours for severe constipation, milk of magnesia 30 mL every 72 hours, meloxicam 7.5 every day, Bactrim double strength b.i.d., Tylenol 325 every 4 hours p.r.n. for pain or fever, vitamin C 500 mg every day, calcium with vitamin D b.i.d., Carbatrol 300 mg q.a.m. and 600 mg q.p.m., Plavix 75 every day, Synthroid 100 mcg via G-tube every day, lisinopril 5 mg daily, lorazepam 1 mg every day p.r.n. metoprolol 50 mg q.a.m., multivitamins and minerals daily, nitroglycerin 0.4 sublingual p.r.n. for chest pain. REVIEW OF SYSTEMS: Unable to be done given patient's condition, but per notes diarrhea x 3 days and weight loss as noted above. PHYSICAL EXAMINATION: VITAL SIGNS: Temperature 97.4, pulse 88, respirations 18-19, BP 101/65, satting 97-100% on room air. GENERAL: He is a well-nourished, developmentally delayed male, currently in no distress. HEAD AND NECK: Normocephalic. His oropharynx, he has got dry mucous membranes. Oropharynx is dry as noted above. No masses noted. NECK: There is no JVD or LAD. CARDIOVASCULAR: Regular rate and rhythm with S1 and S2 present. No murmurs. LUNGS: Diminished at the bases, but clear to auscultation bilaterally. ABDOMEN: Soft, supple. There is mild tenderness to palpation epigastrically but no rebound, no peritoneal signs. There is currently normoactive bowel sounds. LOWER EXTREMITIES: No pedal edema. LABORATORY DATA: On admission, MCV was 102.1, otherwise, the CBC was within normal limits. INR 1.08. Sodium 148, potassium 4.7, chloride 118, CO2 20, BUN 32, creatinine 0.8, glucose 112, lactic acid 4.21, currently is 3.16. Mag 2.1. LFTs show an alkaline phosphatase of 198, other than that within normal limits. Troponins were negative x 1 set. Albumin 4.4, protein 3.6, amylase 82, lipase 84. UA is positive for protein, glucose and ketones, large blood, positive for nitrites, over 100 RBC and 6-10 wbc's. C. diff stool culture positive for C. diff. DIAGNOSTICS: CT of the abdomen and pelvis. Please see above. There is also questionable gallbladder stone. No diverticulitis noted. EKG shows sinus rhythm at a rate of 93. ASSESSMENT: 1. Clostridium difficile positive culture. 2. Diarrhea. 3. Elevated lactic acid level. 4. Urinary tract infection. 5. Hyponatremia. 6. Azotemia/clinical dehydration. 7. Weight loss. PLAN: The patient has been admitted to Med/Surg where he has been placed on Flagyl 500 mg p.o. q.i.d. and will be kept on his medications as scheduled except for the laxatives. I have asked for an ID and GI eval for further management and care. I will ask for a prealbumin level and will follow lactic acid level on a daily basis. Electrolytes will be monitored as well. JOB# [id number] ROSSI
[2017-01-30] MEDS ORDERED: Probiotic Screen MC PRN (10:25)
[2017-01-30] MEDS: Ascorbic Acid 500 mg/5 mL UDC GT SCH (10:44)
[2017-01-30] MEDS: Sodium Chloride 0.9% 1,000 ML IV SCH ×2 (10:49→22:16)
[2017-01-30] MEDS: Calcium Carb/Vit D 500 mg/200 U Tab GT SCH ×2 (10:50→16:35)
[2017-01-30] MEDS: carBAMazepine 200 mg/10 mL UDC GT SCH ×2 (10:50→16:36)
[2017-01-30] MEDS ORDERED: VTE Chemical Prophylaxis Screen/Admission MC PRN (13:32)
--- NOTE | 2017-01-30 13:45 | Consultation ---
DATE OF CONSULTATION: 01/30/2017 REFERRING PHYSICIAN: Dr. Martinez. REASON FOR CONSULTATION: C. diff colitis. UTI. HISTORY OF PRESENT ILLNESS: The patient is a 61-year-old male with past medical history of peptic ulcer disease, GERD, cerebral palsy, mental retardation, brought in from nursing facility for diarrhea for the last 3 days associated with a weight loss of 2 weeks. The patient has no trauma, no headache. No fever. On initial evaluation, the patient's temperature was 97.4 degrees Fahrenheit and WBC count was 9800 with normal differential. The patient's lactic acid was elevated 4.21. The patient's stool for C. diff came positive at [facility] (01/21/2017 ), so the patient was started on Flagyl p.o. The patient also found to have UTI so Rocephin was given, it was changed to Bactrim DS. ID consult was called for further antibiotic management. PAST MEDICAL HISTORY: Includes mental retardation, cerebral palsy, GERD, peptic ulcer disease. ALLERGIES: The patient has multiple allergies, and was CODEINE, ERYTHROMYCIN BASE, LEVOFLOXACIN and PENICILLIN. However, it was noted the patient has taken Rocephin without any adverse events. MEDICATIONS: As per medication reconciliation sheet. Antibiotic baer, the patient had received Rocephin 1 gram in the ER and currently, the patient is receiving Bactrim DS and Flagyl p.o. REVIEW OF SYSTEMS: The patient is a poor historian, unable to give any history. SOCIAL HISTORY: The patient lives in a nursing facility. No history of smoking, alcohol or drug use. FAMILY HISTORY: Hypertension. PHYSICAL EXAMINATION: VITAL SIGNS: Shows temperature is 97.4, pulse is 84, respirations 18, blood pressure 110/64, oxygen saturation 97%. GENERAL: The patient is comfortable lying in the bed, not in acute distress, cachectic. HEENT: Head is normocephalic, atraumatic. Oral cavity moist, pink tongue. Eyes: No pallor, no icterus. PERRLA, EOMI. NECK: Supple, no JVD, no carotid bruit. Trachea in midline. CHEST: Bilateral breath sounds. No crackles or wheezing. HEART: S1, S2 within normal limits. Regular rhythm. No murmur, no gallop. ABDOMEN: Soft, nontender, nondistended. Bowel sounds present. G-tube site is clear. EXTREMITIES: No cyanosis, no clubbing, no edema. NEUROLOGIC: Alert and awake. LABORATORY DATA: Current lab shows WBC count is 8500, hemoglobin 14, hematocrit 42, platelets are 284,000, neutrophils 56.2%. Sodium is 140, potassium 4.3, chloride 118, bicarbonate is 24.3, BUN is 25, creatinine 0.7, glucose is 101, lactic acid 3.16. Alkaline phosphatase is 170. Urinalysis shows large blood, nitrite positive, leukoesterase negative, RBC more than 100 and WBC 6-10. CT scan of the abdomen and pelvis showed G-tube balloon is in the abdomen, questionable cholelithiasis, fluid distended sigmoid colon. Chest x-ray showed left basal density which may be superimposing soft tissue structures, small left effusion cannot be excluded. No definite consolidation. IMPRESSION: 1. Clostridium difficile colitis. 2. Urinary tract infection, mild. 3. Peptic ulcer disease, GERD. 4. Cerebral palsy. 5. Mental retardation. RECOMMENDATIONS: Agree with Bactrim and Flagyl p.o. I will add Questran. Thank you, Dr. Martinez for involving me in taking care of this patient. JOB# [id number] MTDBruce
--- NOTE | 2017-01-30 19:58 | Consultation ---
DATE OF CONSULTATION: 01/30/2017 GASTROINTESTINAL CONSULT ATTENDING PHYSICIAN: Glenys Martinez M.D. CONSULTING PHYSICIAN: Luis Angel Lyons M.D. REASON FOR CONSULTATION: Weight loss and diarrhea. HISTORY OF PRESENT ILLNESS: This is a 61-year-old male who is seen through the courtesy of Dr. Martinez. This patient lives in the senior living and the patient was found to have approximately 30 pound weight loss in the last few months. The patient is unable to provide the history as the patient has dysphagia, dementia, and status post G-tube. So, most of the history is obtained by reviewing the record. Looking at the record, this patient also had a sepsis as the blood culture is positive for gram-positive bacteria and also urinalysis showed UTI. The patient also has been having diarrhea for the last 3 days and stool is found to have stool positive for Clostridium difficile toxin. The patient already has been evaluated by infectious disease insurance consultant and is on antibiotics. Also, the patient had CT scan of the abdomen, which had shown question of cholelithiasis and fluid distended sigmoid colon, also gastrostomy tube is in place. SOCIAL HISTORY: The patient does not smoke, does not drink. PAST MEDICAL HISTORY: Basically remarkable for history of dysphagia, dementia and patient had G-tube. MEDICATIONS: Please see the reconciliation list. Patient is on multiple medications. REVIEW OF SYSTEMS: Unobtainable from the patient. ALLERGIES: The patient is not allergic to any medication. PHYSICAL EXAMINATION: GENERAL: The patient is a moderately built male who is noncommunicative and disoriented. VITAL SIGNS: Temperature is 98, respiratory rate is 18, blood pressure is 90/60, pulse is 100. HEENT: Head is normocephalic. Pupils are reactive to light. Conjunctivae are slightly pale. No scleral icterus. NECK: Supple. No JV distention, no mass. LUNGS: Revealed decreased breath sound, no evidence of any rales. ABDOMEN: Soft. There is a G-tube in place which is functioning. Bowel sounds are present. RECTAL: Not performed. The patient was not cooperative. LABORATORY DATA: Serum amylases and lipases are normal, sodium was 149, potassium 4.3, BUN is 25, creatinine 0.7 and liver function tests are normal except alkaline phosphatase is 170. IMPRESSION: 1. Weight loss could be sepsis, rule out gastrointestinal malignancy. 2. Sepsis, bacteremia, and urinary tract infection. 3. Dysphagia. 4. Status post gastric tube. 5. Diarrhea, most likely due to Clostridium difficile colitis. RECOMMENDATION: We will continue the patient on antibiotics as part ID consult and once the sepsis is controlled, then consider doing EGD as well as colonoscopy. Thank you for the consult. Dr. Martinez will follow this patient with you. [facility]# [id number]
[2017-01-31] MEDS: Sodium Chloride 0.9% 1,000 ML IV SCH (05:57)
[2017-01-31 06:33] LABS: % BASOPHILS 0.2 % (0.0-2.0); % EOSINOPHILS 2.1 % (0.0-5.0); % LYMPHOCYTES 23.1 % (20.0-50.0); % MONOCYTES 10.2 % (2.0-10.0); % NEUTROPHILS 64.4 % (40.0-80.0); EOSINOPHILE ABSOLUTE 0.2 Th/cmm (0.1-0.4); HEMATOCRIT 39.6 % (41.0-60); HEMOGLOBIN 13.5 gm/dL (12-16); LYMPHOCYTE ABSOLUTE 1.9 Th/cmm (1.5-3.0); MEAN CELL VOLUME 101.9 fl (80-99); MEAN CORPUSCULAR HEMOGLOBIN 34.8 pg (26.0-30.0); MEAN CORPUSCULAR HGB CONC 34.1 pg (28.0-36.0); MEAN PLATELET VOLUME 8.5 fl; MONOCYTE ABSOLUTE 0.8 Th/cmm (0.3-1.0); NEUTROPHILE ABSOLUTE 5.3 Th/cmm (1.8-8.0); PLATELET COUNT 234 Th/cmm (150-400); RED BLOOD COUNT 3.89 Mil/cmm (4.30-5.70); RED CELL DISTRIBUTION WIDTH 12.2 % (11.5-20.0); WHITE BLOOD COUNT 8.2 Th/cmm (4.8-10.8)
[2017-01-31] MEDS: Levothyroxine 0.1 Mg Tab GT SCH (06:37)
[2017-01-31 07:23] LABS: ANION GAP 11.8 (7.0-16.0); BUN - UREA NITROGEN 18 mg/dL (7-25); CALCIUM SERUM 8.9 mg/dL (8.6-10.3); CARBON DIOXIDE 21.4 mEq/L (21.0-31.0); CHLORIDE 118 mEq/L (98-107); CREATININE - SERUM 0.6 mg/dL (0.7-1.3); GFR AFRICAN-AMERICAN > 60.0 ml/min (>90); GFR NON AFRICAN-AMERICAN > 60.0 ml/min; GLUCOSE 103 mg/dL (70-105); POTASSIUM SERUM 4.2 mEq/L (3.5-5.1); SODIUM SERUM 147 mEq/L (136-145)
[2017-01-31] MEDS ORDERED: Levothyroxine 0.1 Mg Tab GT SCH (07:30)
[2017-01-31] MEDS: Lactobacillus Rhamnosus 10 Billion CFU Capsule PO SCH (08:44)
[2017-01-31] MEDS: Calcium Carb/Vit D 500 mg/200 U Tab GT SCH ×2 (08:44→17:14)
[2017-01-31] MEDS: Multivitamin Tab GT SCH (08:44)
[2017-01-31] MEDS: carBAMazepine 200 mg/10 mL UDC GT SCH ×2 (08:44→17:12)
[2017-01-31] MEDS: Sulfamethoxazole/TMP 800/160mg Tab GT SCH ×2 (08:48→18:02)
[2017-01-31] MEDS: Ascorbic Acid 500 mg/5 mL UDC GT SCH (08:49)
--- NOTE | 2017-01-31 09:02 | Infectious Disease Prog Note ---
Infectious Disease Subjective - Review of Systems Service Date: 01/31/17 Events since last encounter: Blood c/s grew GPC in chains and clusters. Subjective: No new change, no diarrhea. Infectious Disease Objective - Results Result Diagrams: 01/31/17 06:20 01/31/17 06:20 Recent Labs: Laboratory Last Values WBC 8.2 Th/cmm (4.8-10.8) 01/31/17 06:20 RBC 3.89 Mil/cmm (4.30-5.70) L 01/31/17 06:20 Hgb 13.5 gm/dL (12-16) 01/31/17 06:20 Hct 39.6 % (41.0-60) L 01/31/17 06:20 MCV 101.9 fl (80-99) H 01/31/17 06:20 MCH 34.8 pg (26.0-30.0) H 01/31/17 06:20 MCHC Differential 34.1 pg (28.0-36.0) 01/31/17 06:20 RDW 12.2 % (11.5-20.0) 01/31/17 06:20 Plt Count 234 Th/cmm (150-400) 01/31/17 06:20 MPV 8.5 fl 01/31/17 06:20 Neutrophils % 64.4 % (40.0-80.0) 01/31/17 06:20 Lymphocytes % 23.1 % (20.0-50.0) 01/31/17 06:20 Monocytes % 10.2 % (2.0-10.0) H 01/31/17 06:20 Eosinophils % 2.1 % (0.0-5.0) 01/31/17 06:20 Basophils % 0.2 % (0.0-2.0) 01/31/17 06:20 PT 11.2 SECONDS (9.5-11.5) 01/29/17 18:50 INR 1.08 (0.5-1.4) 01/29/17 18:50 PTT (Actin FS) 26.1 SECONDS (26.0-38.0) 01/29/17 18:50 Sodium 147 mEq/L (136-145) H 01/31/17 06:20 Potassium 4.2 mEq/L (3.5-5.1) 01/31/17 06:20 Chloride 118 mEq/L (98-107) H 01/31/17 06:20 Carbon Dioxide 21.4 mEq/L (21.0-31.0) 01/31/17 06:20 Anion Gap 11.8 (7.0-16.0) 01/31/17 06:20 BUN 18 mg/dL (7-25) 01/31/17 06:20 Creatinine 0.6 mg/dL (0.7-1.3) L 01/31/17 06:20 Est GFR ( Amer) > 60.0 ml/min (>90) 01/31/17 06:20 Est GFR (Non-Af Amer) > 60.0 ml/min 01/31/17 06:20 BUN/Creatinine Ratio 30.0 01/31/17 06:20 Glucose 103 mg/dL (70-105) 01/31/17 06:20 Whole Bld Lactic Acid 2.69 mmol/L (0.60-1.99) H* 01/31/17 06:20 Calcium 8.9 mg/dL (8.6-10.3) 01/31/17 06:20 Magnesium 2.0 mg/dL (1.9-2.7) 01/31/17 06:20 Total Bilirubin 0.3 mg/dL (0.3-1.0) 01/30/17 06:05 AST 20 U/L (13-39) 01/30/17 06:05 ALT 20 U/L (7-52) 01/30/17 06:05 Alkaline Phosphatase 170 U/L (34-104) H 01/30/17 06:05 Creatine Kinase 61 U/L (30-223) 01/29/17 18:50 Troponin I < 0.01 ng/mL (0.01-0.05) L 01/29/17 18:50 Total Protein 6.8 gm/dL (6.0-8.3) 01/30/17 06:05 Albumin 3.8 gm/dL (4.2-5.5) L 01/30/17 06:05 Globulin 3.0 gm/dL 01/30/17 06:05 Albumin/Globulin Ratio 1.3 (1.0-1.8) 01/30/17 06:05 Amylase 82 U/L (29-103) 01/30/17 06:05 Lipase 84 U/L (11-82) H 01/30/17 06:05 Urine Source MIDSTREAM 01/29/17 20:00 Urine Color RED 01/29/17 20:00 Urine Clarity SLIGHT CLOUDY (CLEAR) 01/29/17 20:00 Urine pH 6.0 (4.6 - 8.0) 01/29/17 20:00 Ur Specific [place] >= 1.030 (1.005-1.030) 01/29/17 20:00 Urine Protein 30 mg/dL (NEGATIVE) H 01/29/17 20:00 Urine Glucose (UA) 250 mg/dL (NEGATIVE) H 01/29/17 20:00 Urine Ketones 15 mg/dL (NEGATIVE) H 01/29/17 20:00 Urine Blood LARGE (NEGATIVE) H 01/29/17 20:00 Urine Nitrate POSITIVE (NEGATIVE) H 01/29/17 20:00 Urine Bilirubin SMALL (NEGATIVE) H 01/29/17 20:00 Urine Urobilinogen 0.2 E.U./dL (0.2 - 1.0) 01/29/17 20:00 Ur Leukocyte Esterase NEGATIVE (NEGATIVE) 01/29/17 20:00 Urine RBC >100 /hpf (0-5) H 01/29/17 20:00 Urine WBC 6-10 /hpf (0-5) H 01/29/17 20:00 Ur Epithelial Cells OCCASIONAL /lpf (FEW) 01/29/17 20:00 Urine Bacteria FEW /hpf (NONE SEEN) 01/29/17 20:00 Carbamazepine 8.1 ug/ml (4.0-12.0) 01/31/17 06:20 - Physical Exam Vitals and I&O: Vital Signs Temp 98.4 F 01/31/17 04:00 Pulse 84 01/31/17 04:00 Resp 18 01/31/17 04:00 BP 110/77 01/31/17 04:00 Pulse Ox 99 01/31/17 04:00 Intake & Output 01/30/17 01/31/17 01/31/17 18:59 06:59 18:59 Intake Total 1000 1000 Balance 1000 1000 Intake: Intake, IV Amount 1000 1000 Sodium Chloride 0.9% 1, 1000 1000 000 ml @ 100 mls/hr IV . Q10H [facility]IRIAN Rx#:[id number] Active Medications: Current Medications Acetaminophen (Tylenol 650mg/20.3ml Suspension) 650 mg GT Q4HR PRN PRN Reason: Pain Or Fever >99.9 Stop: 03/31/17 08:43 Ascorbic Acid (Vitamin C) 500 mg GT DAILY [facility] Stop: 03/31/17 08:59 Last Admin: 01/30/17 10:44 Dose: Not Given Calcium/Vitamin D (Oscal W/Vitamin D) 1 tab GT BID [facility] Stop: 03/31/17 08:59 Last Admin: 01/30/17 16:35 Dose: 1 tab Carbamazepine (Tegretol) 300 mg GT QAM [facility] Stop: 03/31/17 10:59 Last Admin: 01/30/17 10:50 Dose: 300 mg Carbamazepine (Tegretol) 600 mg GT QPM MRIIAN Stop: 03/31/17 16:59 Last Admin: 01/30/17 16:36 Dose: 600 mg Cholestyramine Resin (Questran) 4 gm PO BID [facility] Stop: 03/31/17 09:59 Last Admin: 01/30/17 16:36 Dose: 4 gm Clopidogrel Bisulfate (Plavix) 75 mg GT HS [facility] Stop: 03/31/17 20:59 Last Admin: 01/30/17 20:36 Dose: 75 mg Heparin Sodium (Porcine) (Heparin) 5,000 units SUBQ Q12H [facility] Stop: 03/31/17 20:59 Last Admin: 01/30/17 20:36 Dose: 5,000 units Sodium Chloride (Nacl 0.9%) 1,000 mls @ 100 mls/hr IV .Q10H [facility] Stop: 03/30/17 22:14 Last Admin: 01/31/17 05:57 Dose: Not Given Isosorbide Dinitrate (Isordil) 5 mg GT BID [facility] Stop: 03/31/17 08:59 Last Admin: 01/30/17 19:30 Dose: Not Given Lactobacillus Rhamnosus (Culturelle) 1 each PO DAILY [facility] Stop: 04/01/17 08:59 Levothyroxine Sodium (Synthroid) 0.1 mg GT QDAC [facility] Stop: 03/31/17 07:29 Last Admin: 01/31/17 06:37 Dose: 0.1 mg Lisinopril (Zestril) 5 mg GT DAILY [facility] Stop: 03/31/17 08:59 Last Admin: 01/30/17 09:17 Dose: 5 mg Lorazepam (Ativan) 1 mg GT Q4H PRN; Protocol PRN Reason: Agitation Stop: 03/30/17 22:14 Lorazepam (Ativan) 1 mg GT QMONTH PRN; Protocol PRN Reason: nail care Stop: 03/31/17 08:43 Metoprolol Tartrate (Lopressor) 50 mg GT QAM [facility] Stop: 03/31/17 08:59 Last Admin: 01/30/17 09:17 Dose: 50 mg Metronidazole (Flagyl) 500 mg PO QID [facility] Stop: 02/04/17 09:01 Last Admin: 01/30/17 20:36 Dose: 500 mg Miscellaneous (Probiotic Screen) 1 ea PRN PRN PRN Reason: PROTOCOL Stop: 03/31/17 10:24 Miscellaneous (Vte Chemical Prophylaxis Screen/ Admission) 1 ea PRN PRN PRN Reason: PROTOCOL Stop: 03/31/17 13:31 Miscellaneous (Vancomycin Iv Per Pharmacy) 1 ea PRN PRN PRN Reason: PROTOCOL Stop: 04/01/17 08:54 Multivitamins/Vitamin C (Theragran) 1 tab GT DAILY [facility] Stop: 03/31/17 08:59 Last Admin: 01/30/17 09:17 Dose: 1 tab Nitroglycerin (Nitrostat) 0.4 mg SL Q5MIN PRN PRN Reason: Chest Pain Stop: 03/31/17 08:43 Trimethoprim/Sulfamethoxazole (Bactrim Ds) 1 tab GT BID [facility] Stop: 03/31/17 08:59 Last Admin: 01/30/17 16:41 Dose: 1 tab General: no acute distress, well developed, well nourished HEENT: atraumatic, normocephalic, PERRLA Neck: supple, no thyromegaly Cardiovascular: S1S2, regular Lungs: clear to auscultation bilaterally, clear to percussion Abdomen: soft, no tender, no distended Extremities: no cyanosis, no clubbing, no edema Neurological: awake, alert - Procedures Procedures: Procedures Procedure Code Date CHANGE FEEDING DEVICE IN UP INTEST TRACT, RADIO MESSAGE ROUTER APPROACH [id number] 07/29/16 CHANGE GASTROSTOMY TUBE 28269 07/29/[address] GASTROSTOMY TUBE 41664 07/08/16 INJECT/INFUSE NEC 99.29 02/21/13 INSERTION OF FEEDING DEVICE INTO STOMACH, PERC APPROACH [id number] 07/08/16 INSERTION OF FEEDING DEVICE INTO STOMACH, PERC ENDO APPROACH [id number] 08/12/15 INSERTION OF INFUSION DEVICE INTO UPPER VEIN, PERC APPROACH [id number] 01/01/17 THER/PROPH/DIAG IV INF, INIT 50146 08/08/07 Infectious Disease Assmt/Plan - Problem List Patient Problems: All Active Problems Seizure disorder (Active) G40.909 Finger fracture (Acute) N/V/D WITH WEIGHT LOSS (Acute) - Assessment Assessment: 1. Streptrococcal sepsis. 2. C diff colitis, no diarrhea. 3. UTI, mild. 4. Cerebral palsy. - Plan Plan: Continue bactrim and flagyl. continue questran. start vanco IV and repeat blood cultures. MANNY RN. Nutritional Asmnt/Malnutr-PDOC - Dietary Evaluation Malnutrition Findings (Please click <Entered> for more info): Nutritional Asmnt/Malnutrition Start: 01/30/17 18: 28 Text: Status: Complete Freq: Document 01/30/17 18:28 LCHENG (Rec: 01/30/17 18:41 LCHENG [email or web address]) Nutritional Asmnt/Malnutrition Patient General Information Nutritional Screening High Risk Consult Diagnosis c diff, colitis, diarrhea, UTI Pertinent Medical Hx/Surgical Hx PUD/GERD, cerebral palsy, MR, dementia Subjective Information Consult received for lossing 31lb in [facility]. Pt seen lying in bed during the time of visit, non-verbal noted, not able to obtain nutrition hx. Spoke with ALEYDA Hobson, Nutrien 2.0 cans not in stock, RN agreed to send Nutren 2.0 1L bag for tube feeding. Current Diet Order/ Nutrition Support Nutren 2.0, 237ml QID Pertinent Medications Vitamin C, Baltazar/Vitamin D, cultruelle, theragran, Nacl 0. 9%, Bactrim Pertinent Labs 01/30 Na 149, K 4.3, Cl 118, BUN 25, Cr 0.7, Glu 101, Alb 3 .8 Nutritional Hx/Data Height 1.55 m Height (Calculated Centimeters) 154.9 Current Weight (lbs) 56.155 kg Weight (Calculated Kilograms) 56.2 Weight (Calculated Grams) 42704.7 [place] Body Weight 105 % [place] Body Weight 118 Body Mass Index (BMI) 23.3 Weight Status Approriate GI Symptoms GI Symptoms None Last BM none Difficult in: None Usual diet at home Nutren 2.0 237ml QID at [facility] Skin Integrity/Comment: tip of [place] is reddened Estimated Nutritional Goals BEE in Kcals: Using Current wt Calories/Kcals/Kg 30-35 Kcals Calculated Protein: Using Current wt Protein g/k.2-1.4 Protein Calculated 67-78 Fluid: ml Nutritional Problem 1. Problem Problem increased nutrition needs ( calorie and protein0 Etiology increased metabolic demand Signs/Symptoms: dx of c diff Intervention/Recommendation Comments 1. Current TF provides 1896kcal, 76g protein, meeting 100% of nutritional needs 2. Monitor TF tolerance, GI symptoms, skin integrity and labs 3. F/U as high risk in 2 days, 01/31 Expected Outcomes/Goals Expected Outcomes/Goals 1. PO intake to meet at least 75% of nutritional needs via enteral nutrition with tolerance, no GI symptoms 2. Wt stability, skin to remain intact, labs to improve .
[2017-02-01] MEDS: Levothyroxine 0.1 Mg Tab GT SCH (06:50)
[2017-02-01 07:04] LABS: % BASOPHILS 0.2 % (0.0-2.0); % EOSINOPHILS 2.4 % (0.0-5.0); % LYMPHOCYTES 29.3 % (20.0-50.0); % NEUTROPHILS 62.1 % (40.0-80.0); EOSINOPHILE ABSOLUTE 0.2 Th/cmm (0.1-0.4); HEMOGLOBIN 13.4 gm/dL (12-16); LYMPHOCYTE ABSOLUTE 1.8 Th/cmm (1.5-3.0); MEAN CELL VOLUME 103.1 fl (80-99); MEAN CORPUSCULAR HEMOGLOBIN 35.5 pg (26.0-30.0); MEAN CORPUSCULAR HGB CONC 34.5 pg (28.0-36.0); MEAN PLATELET VOLUME 8.5 fl; MONOCYTE ABSOLUTE 0.4 Th/cmm (0.3-1.0); NEUTROPHILE ABSOLUTE 3.9 Th/cmm (1.8-8.0); PLATELET COUNT 240 Th/cmm (150-400); RED BLOOD COUNT 3.78 Mil/cmm (4.30-5.70); RED CELL DISTRIBUTION WIDTH 12.6 % (11.5-20.0)
[2017-02-01 07:22] LABS: ANION GAP 11.6 (7.0-16.0); BUN - UREA NITROGEN 19 mg/dL (7-25); CALCIUM SERUM 8.7 mg/dL (8.6-10.3); CARBON DIOXIDE 21.2 mEq/L (21.0-31.0); CHLORIDE 116 mEq/L (98-107); CREATININE - SERUM 0.7 mg/dL (0.7-1.3); GFR AFRICAN-AMERICAN > 60.0 ml/min (>90); GFR NON AFRICAN-AMERICAN > 60.0 ml/min; GLUCOSE 126 mg/dL (70-105); POTASSIUM SERUM 3.8 mEq/L (3.5-5.1); SODIUM SERUM 145 mEq/L (136-145)
[2017-02-01 07:27] LABS: WHITE BLOOD COUNT 6.3 Th/cmm (4.8-10.8)
--- NOTE | 2017-02-01 09:05 | Infectious Disease Prog Note ---
Infectious Disease Subjective - Review of Systems Service Date: 02/01/17 Subjective: No new change, no diarrhea. Infectious Disease Objective - Results Result Diagrams: 02/01/17 06:30 02/01/17 06:30 Recent Labs: Laboratory Last Values WBC 6.3 Th/cmm (4.8-10.8) D 02/01/17 06:30 RBC 3.78 Mil/cmm (4.30-5.70) L 02/01/17 06:30 Hgb 13.4 gm/dL (12-16) 02/01/17 06:30 Hct 39.0 % (41.0-60) L 02/01/17 06:30 MCV 103.1 fl (80-99) H 02/01/17 06:30 MCH 35.5 pg (26.0-30.0) H 02/01/17 06:30 MCHC Differential 34.5 pg (28.0-36.0) 02/01/17 06:30 RDW 12.6 % (11.5-20.0) 02/01/17 06:30 Plt Count 240 Th/cmm (150-400) 02/01/17 06:30 MPV 8.5 fl 02/01/17 06:30 Neutrophils % 62.1 % (40.0-80.0) 02/01/17 06:30 Lymphocytes % 29.3 % (20.0-50.0) 02/01/17 06:30 Monocytes % 6.0 % (2.0-10.0) 02/01/17 06:30 Eosinophils % 2.4 % (0.0-5.0) 02/01/17 06:30 Basophils % 0.2 % (0.0-2.0) 02/01/17 06:30 PT 11.2 SECONDS (9.5-11.5) 01/29/17 18:50 INR 1.08 (0.5-1.4) 01/29/17 18:50 PTT (Actin FS) 26.1 SECONDS (26.0-38.0) 01/29/17 18:50 Sodium 145 mEq/L (136-145) 02/01/17 06:30 Potassium 3.8 mEq/L (3.5-5.1) 02/01/17 06:30 Chloride 116 mEq/L (98-107) H 02/01/17 06:30 Carbon Dioxide 21.2 mEq/L (21.0-31.0) 02/01/17 06:30 Anion Gap 11.6 (7.0-16.0) 02/01/17 06:30 BUN 19 mg/dL (7-25) 02/01/17 06:30 Creatinine 0.7 mg/dL (0.7-1.3) 02/01/17 06:30 Est GFR ( Amer) > 60.0 ml/min (>90) 02/01/17 06:30 Est GFR (Non-Af Amer) > 60.0 ml/min 02/01/17 06:30 BUN/Creatinine Ratio 27.1 02/01/17 06:30 Glucose 126 mg/dL (70-105) H 02/01/17 06:30 Whole Bld Lactic Acid 2.80 mmol/L (0.60-1.99) H* 02/01/17 06:30 Calcium 8.7 mg/dL (8.6-10.3) 02/01/17 06:30 Magnesium 2.0 mg/dL (1.9-2.7) 01/31/17 06:20 Total Bilirubin 0.3 mg/dL (0.3-1.0) 01/30/17 06:05 AST 20 U/L (13-39) 01/30/17 06:05 ALT 20 U/L (7-52) 01/30/17 06:05 Alkaline Phosphatase 170 U/L (34-104) H 01/30/17 06:05 Creatine Kinase 61 U/L (30-223) 01/29/17 18:50 Troponin I < 0.01 ng/mL (0.01-0.05) L 01/29/17 18:50 Total Protein 6.8 gm/dL (6.0-8.3) 01/30/17 06:05 Albumin 3.8 gm/dL (4.2-5.5) L 01/30/17 06:05 Globulin 3.0 gm/dL 01/30/17 06:05 Albumin/Globulin Ratio 1.3 (1.0-1.8) 01/30/17 06:05 Prealbumin 22 mg/dL (10-36) 01/31/17 06:20 Amylase 82 U/L (29-103) 01/30/17 06:05 Lipase 84 U/L (11-82) H 01/30/17 06:05 Urine Source MIDSTREAM 01/29/17 20:00 Urine Color RED 01/29/17 20:00 Urine Clarity SLIGHT CLOUDY (CLEAR) 01/29/17 20:00 Urine pH 6.0 (4.6 - 8.0) 01/29/17 20:00 Ur Specific [place] >= 1.030 (1.005-1.030) 01/29/17 20:00 Urine Protein 30 mg/dL (NEGATIVE) H 01/29/17 20:00 Urine Glucose (UA) 250 mg/dL (NEGATIVE) H 01/29/17 20:00 Urine Ketones 15 mg/dL (NEGATIVE) H 01/29/17 20:00 Urine Blood LARGE (NEGATIVE) H 01/29/17 20:00 Urine Nitrate POSITIVE (NEGATIVE) H 01/29/17 20:00 Urine Bilirubin SMALL (NEGATIVE) H 01/29/17 20:00 Urine Urobilinogen 0.2 E.U./dL (0.2 - 1.0) 01/29/17 20:00 Ur Leukocyte Esterase NEGATIVE (NEGATIVE) 01/29/17 20:00 Urine RBC >100 /hpf (0-5) H 01/29/17 20:00 Urine WBC 6-10 /hpf (0-5) H 01/29/17 20:00 Ur Epithelial Cells OCCASIONAL /lpf (FEW) 01/29/17 20:00 Urine Bacteria FEW /hpf (NONE SEEN) 01/29/17 20:00 Carbamazepine 8.1 ug/ml (4.0-12.0) 01/31/17 06:20 - Physical Exam Vitals and I&O: Vital Signs Temp 96.9 F 02/01/17 04:00 Pulse 89 02/01/17 04:00 Resp 18 02/01/17 04:00 BP 102/60 02/01/17 04:00 Pulse Ox 95 02/01/17 04:00 Intake & Output 01/31/17 02/01/17 02/01/17 18:59 06:59 18:59 Intake Total 640 1500 Output Total 1 Balance 639 1500 Weight (lbs) 56.155 kg 61.734 kg Intake: Oral 0 0 Tube Feeding 240 1200 Other 400 300 Output: Urine/Stool Mix 1 Other: # Voids 2 3 # Bowel Movements 1 1 Stool Characteristics Liquid Brown Active Medications: Current Medications Acetaminophen (Tylenol 650mg/20.3ml Suspension) 650 mg GT Q4HR PRN PRN Reason: Pain Or Fever >99.9 Stop: 03/31/17 08:43 Ascorbic Acid (Vitamin C) 500 mg GT DAILY [facility] Stop: 03/31/17 08:59 Last Admin: 01/31/17 08:49 Dose: Not Given Betamethasone/Clotrimazole (Lotrisone Cream) 1 appl TP BID [facility] Stop: 04/01/17 17:59 Calcium/Vitamin D (Oscal W/Vitamin D) 1 tab GT BID [facility] Stop: 03/31/17 08:59 Last Admin: 01/31/17 17:14 Dose: 1 tab Carbamazepine (Tegretol) 300 mg GT QAM [facility] Stop: 03/31/17 10:59 Last Admin: 01/31/17 08:44 Dose: 300 mg Carbamazepine (Tegretol) 600 mg GT QPM [facility] Stop: 03/31/17 16:59 Last Admin: 01/31/17 17:12 Dose: 600 mg Cholestyramine Resin (Questran) 4 gm PO BID [facility] Stop: 03/31/17 09:59 Last Admin: 01/31/17 17:14 Dose: 4 gm Clopidogrel Bisulfate (Plavix) 75 mg GT HS [facility]IRIAN Stop: 03/31/17 20:59 Last Admin: 01/31/17 22:52 Dose: 75 mg Heparin Sodium (Porcine) (Heparin) 5,000 units SUBQ Q12H [facility] Stop: 03/31/17 20:59 Last Admin: 01/31/17 22:51 Dose: 5,000 units Sodium Chloride (Nacl 0.9%) 1,000 mls @ 100 mls/hr IV .Q10H [facility] Stop: 03/30/17 22:14 Last Admin: 01/31/17 05:57 Dose: Not Given Vancomycin HCl 1 gm/ Dextrose 250 mls @ 165 mls/hr IV Q12HR@0900,2100 [facility] Stop: 04/01/17 09:59 Last Admin: 02/01/17 02:34 Dose: Not Given Isosorbide Dinitrate (Isordil) 5 mg GT BID [facility] Stop: 03/31/17 08:59 Last Admin: 12/20/17 17:13 Dose: 5 mg Lactobacillus Rhamnosus (Culturelle) 1 each PO DAILY [facility] Stop: 04/01/17 08:59 Last Admin: 01/31/17 08:44 Dose: 1 each Levothyroxine Sodium (Synthroid) 0.1 mg GT QDAC [facility] Stop: 03/31/17 07:29 Last Admin: 02/01/17 06:50 Dose: 0.1 mg Lisinopril (Zestril) 5 mg GT DAILY [facility] Stop: 03/31/17 08:59 Last Admin: 01/31/17 08:45 Dose: 5 mg Lorazepam (Ativan) 1 mg GT Q4H PRN; Protocol PRN Reason: Agitation Stop: 03/30/17 22:14 Lorazepam (Ativan) 1 mg GT QMONTH PRN; Protocol PRN Reason: nail care Stop: 03/31/17 08:43 Lorazepam (Ativan) 1 mg IVP Q4HR PRN; Protocol PRN Reason: Anxiety Stop: 04/01/17 09:29 Metoprolol Tartrate (Lopressor) 50 mg GT QAM [facility] Stop: 03/31/17 08:59 Last Admin: 01/31/17 08:46 Dose: 50 mg Metronidazole (Flagyl) 500 mg PO QID [facility] Stop: 02/04/17 09:01 Last Admin: 01/31/17 22:52 Dose: 500 mg Miscellaneous (Probiotic Screen) 1 ea PRN PRN PRN Reason: PROTOCOL Stop: 03/31/17 10:24 Miscellaneous (Vte Chemical Prophylaxis Screen/ Admission) 1 ea PRN PRN PRN Reason: PROTOCOL Stop: 03/31/17 13:31 Miscellaneous (Vancomycin Iv Per Pharmacy) 1 ea PRN PRN PRN Reason: PROTOCOL Stop: 04/01/17 08:54 Multivitamins/Vitamin C (Theragran) 1 tab GT DAILY [facility] Stop: 03/31/17 08:59 Last Admin: 01/31/17 08:44 Dose: 1 tab Nitroglycerin (Nitrostat) 0.4 mg SL Q5MIN PRN PRN Reason: Chest Pain Stop: 03/31/17 08:43 Trimethoprim/Sulfamethoxazole (Bactrim Ds) 1 tab GT BID [facility] Stop: 03/31/17 08:59 Last Admin: 01/31/17 18:02 Dose: 1 tab General: no acute distress, well developed, well nourished HEENT: atraumatic, normocephalic, PERRLA, EOMI, moist mucous membrane Neck: supple, no thyromegaly Cardiovascular: S1S2, regular Lungs: clear to auscultation bilaterally, clear to percussion Abdomen: soft, no tender, no distended Extremities: no cyanosis, no clubbing, no edema Neurological: awake, alert, oriented Skin: intact - Procedures Procedures: Procedures Procedure Code Date CHANGE FEEDING DEVICE IN UP INTEST TRACT, TRANSMISSION REPAIRER APPROACH [id number] 07/29/16 CHANGE GASTROSTOMY TUBE 12580 07/29/[address] GASTROSTOMY TUBE 47982 07/08/16 INJECT/INFUSE NEC 99.29 02/21/13 INSERTION OF FEEDING DEVICE INTO STOMACH, PERC APPROACH [id number] 07/08/16 INSERTION OF FEEDING DEVICE INTO STOMACH, PERC ENDO APPROACH [id number] 08/12/15 INSERTION OF INFUSION DEVICE INTO UPPER VEIN, PERC APPROACH [id number] 01/01/17 THER/PROPH/DIAG IV INF, INIT 54287 08/08/07 Infectious Disease Assmt/Plan - Problem List Patient Problems: All Active Problems Seizure disorder (Active) G40.909 Finger fracture (Acute) N/V/D WITH WEIGHT LOSS (Acute) - Assessment Assessment: 1. Enterococcal sepsis. 2. C diff colitis, no diarrhea. 3. UTI, mild. 4. Cerebral palsy. - Plan Plan: Continue bactrim and flagyl. continue questran. Continue vanco IV and check repeat blood cultures. depending on the culture report will define further antibiotic therapy. MANNY RN. Nutritional Asmnt/Malnutr-PDOC - Dietary Evaluation Malnutrition Findings (Please click <Entered> for more info): Nutritional Asmnt/Malnutrition Start: 01/30/17 18: 28 Text: Status: Complete Freq: Document 01/30/17 18:28 LCHENG (Rec: 01/30/17 18:41 LCMONICAG [email or web address]) Nutritional Asmnt/Malnutrition Patient General Information Nutritional Screening High Risk Consult Diagnosis c diff, colitis, diarrhea, UTI Pertinent Medical Hx/Surgical Hx PUD/GERD, cerebral palsy, MR, dementia Subjective Information Consult received for lossing 31lb in 4 months at [facility]. Pt seen lying in bed during the time of visit, non-verbal noted, not able to obtain nutrition hx. Spoke with RN Joce, Nutrien 2.0 cans not in stock, RN agreed to send Nutren 2.0 1L bag for tube feeding. Current Diet Order/ Nutrition Support Nutren 2.0, 237ml QID Pertinent Medications Vitamin C, Baltazar/Vitamin D, cultruelle, theragran, Nacl 0. 9%, Bactrim Pertinent Labs 01/30 Na 149, K 4.3, Cl 118, BUN 25, Cr 0.7, Glu 101, Alb 3 .8 Nutritional Hx/Data Height 1.55 m Height (Calculated Centimeters) 154.9 Current Weight (lbs) 56.155 kg Weight (Calculated Kilograms) 56.2 Weight (Calculated Grams) 97898.7 [place] Body Weight 105 % [place] Body Weight 118 Body Mass Index (BMI) 23.3 Weight Status Approriate GI Symptoms GI Symptoms None Last BM none Difficult in: None Usual diet at home Nutren 2.0 237ml QID at [facility] Skin Integrity/Comment: tip of [place] is reddened Estimated Nutritional Goals BEE in Kcals: Using Current wt Calories/Kcals/Kg 30-35 Kcals Calculated 7776-4940 Protein: Using Current wt Protein g/k.2-1.4 Protein Calculated 67-78 Fluid: ml 7687-3220 Nutritional Problem 1. Problem Problem increased nutrition needs ( calorie and protein0 Etiology increased metabolic demand Signs/Symptoms: dx of c diff Intervention/Recommendation Comments 1. Current TF provides 1896kcal, 76g protein, meeting 100% of nutritional needs 2. Monitor TF tolerance, GI symptoms, skin integrity and labs 3. F/U as high risk in 2 days, 01/31 Expected Outcomes/Goals Expected Outcomes/Goals 1. PO intake to meet at least 75% of nutritional needs via enteral nutrition with tolerance, no GI symptoms 2. Wt stability, skin to remain intact, labs to improve .
[2017-02-01] MEDS: Multivitamin Tab GT SCH (10:27)
[2017-02-01] MEDS: carBAMazepine 200 mg/10 mL UDC GT SCH ×3 (10:27→18:27)
[2017-02-01] MEDS: Calcium Carb/Vit D 500 mg/200 U Tab GT SCH ×2 (10:27→17:53)
[2017-02-01] MEDS: Lactobacillus Rhamnosus 10 Billion CFU Capsule PO SCH (10:30)
[2017-02-01] MEDS: Sulfamethoxazole/TMP 800/160mg Tab GT SCH ×2 (10:32→18:04)
[2017-02-01] MEDS: Ascorbic Acid 500 mg/5 mL UDC GT SCH (10:41)
[2017-02-01 14:40] LABS: MAGNESIUM 2.1 mg/dL (1.9-2.7)
[2017-02-01] MEDS: Betamethasone/Clotrimazole Cream 15 gm Tube TP SCH (18:01)
[2017-02-02] MEDS: Levothyroxine 0.1 Mg Tab GT SCH (07:00)
[2017-02-02 09:22] LABS: CARCINOEMBRYONIC ANTIGEN 3.2 ng/mL (0.0-4.7); IRON LC 218 ug/dL (38-169); TIBC (LC) <235 ug/dL (250-450); UIBC <17 ug/dL (111-343)
[2017-02-02] MEDS: carBAMazepine 200 mg/10 mL UDC GT SCH (10:48)
[2017-02-02] MEDS: Calcium Carb/Vit D 500 mg/200 U Tab GT SCH (10:49)
[2017-02-02] MEDS: Multivitamin Tab GT SCH (10:49)
[2017-02-02] MEDS: Sulfamethoxazole/TMP 800/160mg Tab GT SCH (10:49)
[2017-02-02] MEDS: Lactobacillus Rhamnosus 10 Billion CFU Capsule PO SCH (10:50)
[2017-02-02] MEDS: Betamethasone/Clotrimazole Cream 15 gm Tube TP SCH (10:50)
[2017-02-02] MEDS: Ascorbic Acid 500 mg/5 mL UDC GT SCH (10:52)
--- NOTE | 2017-02-02 16:16 | Discharge Summary ---
DATE OF DISCHARGE: 02/02/2017 ADMITTING DIAGNOSES: 1. Clostridium difficile colitis. 2. Diarrhea. 3. Sepsis. 4. Elevated lactic acid level. 5. Urinary tract infection. 6. Hyponatremia. 7. Azotemia/clinical dehydration. 8. Weight loss. SECONDARY DIAGNOSES: Include: 1. Severe mental retardation/cerebral palsy. 2. History of peptic ulcer/acid reflux disease. 3. Essential hypertension. 4. History of coronary artery disease. 5. History of osteoarthritis. 6. History of dysphagia, status post percutaneous endoscopic gastrostomy placement. DISCHARGE DIAGNOSES: 1. Enterococcal faecalis bacteremia. 2. Clostridium difficile colitis. 3. Urinary tract infection. 4. Azotemia/clinical dehydration, improved. 5. Poor IV access. CONSULTANTS: 1. Matthieu Cobb M.D., ID. 2. Dr. Lyons, GI. MAJOR PROCEDURES: There was an abdominal and pelvis CT done on 01/29/2017 showin. Gastrostomy tube balloon in the duodenum. 2. Questionable cholelithiasis. 3. Fluid distended sigmoid colon. BRIEF HOSPITAL COURSE: The patient is a 61-year-old male who resides at [facility] with above-mentioned medical history, who presented to the ER with a 3-day history of diarrhea and apparent 40-pound weight loss over the last 3 months. The patient will schedule to see GI specialist soon for the weight loss, but given the diarrhea, he was transferred to the ED. The patient had undergone C. diff testing at the facility, which came back positive for C. diff. At the ER, pertinent findings included a sodium of 148, a BUN of 32, lactic acid level of 4.21, and UA consistent with UTI. The patient was admitted to the telemetry painting given the positive criteria for sepsis. The patient was placed on IV fluids, Flagyl p.o., and was pancultured. Blood cultures came back with Enterococcus fecalis. The patient was started on IV vancomycin as well. He has remained stable since admission with improvement of his diarrhea. However, The patient's IV line was pulled and will attempt PICC line prior to being transferred. MEDICATIONS ON DISCHARGE: Tylenol q 4hours p.r.n., ascorbic acid 100 mg daily, betamethasone application b.i.d., calcium with vitamin D b.i.d., carbamazepine 300 mg q.a.m. and 600 mg q.p.m., cholestyramine 4 grams b.i.d., Plavix 75 at bedtime, heparin 5000 units subQ b.i.d., Imdur 5 b.i.d., lactobacillus 1 tab daily, levothyroxine 100 mcg daily, lisinopril 5 daily, lorazepam 1 mg q.4 hours p.r.n. for anxiety, metoprolol 50 mg q.a.m., Flagyl 500 mg q.i.d., multivitamins every day, nitroglycerin q.5 minutes p.r.n. for chest pain, sodium chloride at 100 mL per hour, probiotic 1 daily, Bactrim double strength b.i.d., vancomycin 1 gram daily. DISPOSITION: The patient will be transferred to long-term acute care, namely [facility] for continuation of care. [facility]# [id number]
== END 2017-02-02 14:35 | DRG 871 ==
LOC: ER 16:05 → MSI 22:00
PROVIDERS: ADMIT Internal Medicine; ATTEND Internal Medicine
DX: A41.81 Sepsis due to Enterococcus (principal); R53.2 Functional quadriplegia; A04.72 Enterocolitis due to Clostridium difficile, not specified as recurrent; E87.1 Hypo-osmolality and hyponatremia; R13.10 Dysphagia, unspecified; F03.90 Unspecified dementia, unspecified severity, without behavioral disturbance, psychotic disturbance, mood disturbance, and anxiety; Z93.1 Gastrostomy status; N39.0 Urinary tract infection, site not specified; E86.0 Dehydration; E03.9 Hypothyroidism, unspecified; G80.9 Cerebral palsy, unspecified; F79 Unspecified intellectual disabilities; M19.90 Unspecified osteoarthritis, unspecified site; K21.9 Gastro-esophageal reflux disease without esophagitis; R63.4 Abnormal weight loss; K27.9 Peptic ulcer, site unspecified, unspecified as acute or chronic, without hemorrhage or perforation; Z88.5 Allergy status to narcotic agent; Z88.1 Allergy status to other antibiotic agents; Z68.23 Body mass index [BMI] 23.0-23.9, adult; Z82.49 Family history of ischemic heart disease and other diseases of the circulatory system; Z88.0 Allergy status to penicillin
CPT/HCPCS: 36415-UA; 71010-TC; 80048-TC; 80053-TC; 80156-TC; 81001-TC; 82150-TC; 82378-90; 82550-TC; 83540-90; 83550-90; 83605; 83690-TC; 83735-TC; 84134-90; 84484-TC; 85025-TC; 85610-TC; 85730-TC; 87086-90; 90799; 93005; J0696; J1200; J1630; J1644; J2060; J3370; J7030; Z7610

== ENCOUNTER 2017-03-29 21:35 | Emergency (ER) | payer MEDICARE, MEDICAID ==
--- NOTE | 2017-03-29 22:05 | ED Physician Chart ---
ED Chief Complaint/HPI - Patient Information Date Seen:: 03/29/17 Time Seen:: 21:50 Chief Complaint:: G-tube replacement History of Present Illness:: Patient pulled out his G-tube at 3-4 PM today. PM today Allergies:: Allergies Allergy/AdvReac Type Severity Reaction Status Date / Time codeine Allergy Verified 01/29/17 16:31 erythromycin base Allergy Verified 01/29/17 16:31 levofloxacin [From Levaquin] Allergy Verified 01/29/17 16:31 Penicillins [PCN] Allergy Verified 01/29/17 16:31 Historian:: EMS Review:: Transfer documents Reviewed ED Review of Systems - Review of Systems General/Constitutional: No fever, No chills Skin: No skin lesions Head: No headache Eyes: No loss of vision ENT: No earache Neck: No neck pain Cardio Vascular: No chest pain Pulmonary: No SOB GI: No nausea, No vomiting, No diarrhea G/U: No dysuria Musculoskeletal: No bone or joint pain, No back pain, No muscle pain Endocrine: No polyuria, No polydipsia Psychiatric: Prior psych history Hematopoietic: No bruising Allergic/Immuno: No urticaria Neurological: No syncope ED Past Medical History - Past Medical History Past Medical History: Other (profound mental retardation; cerebral palsy; seizures; hypothyroid; gastritis) Family History: Other (not available) Social History: Care Facility Surgical History: PEG/GTube Psychiatricy History: Other (severe mental retardation) Medication: Reviewed Family Medical History - Family Member Mother History Unknown: Yes Ethnicity: Unknown Living Status: Unknown Hx Family Cancer: No Hx Family Coronary Artery Disease: No Hx Family Congestive Heart Failure: No Hx Family Hypertension: Yes Hx Family Stroke: No Hx Family Diabetes: No Hx Family Seizures: Yes Hx Family Dementia: No Hx Family AIDS: No Hx Family HIV: No Hx Family COPD: No Hx Family Hepatitis: No Hx Family Psychiatric Problems: No Hx Family Tuberculosis: No ED Physical Exam - Physical Examination General/Constitutional: Well-developed, well-nourished, Alert Other Gen/Cons comments:: Restless; agitated Head: Atraumatic Eyes: Lids, conjuctiva normal, PERRL Skin: Nl inspection, No rash ENMT: External ears, nose nl, TM canals nl Other ENMT comments:: poor dental hygiene Neck: No nuchal rigidity Respiratory: Nl effort/Exclusion, Clear to Auscultation Cardio Vascular: No murmur, gallop, rubs GI: No tenderness/rebounding/guarding, No organomegaly, No hernia : No CVA tenderness Extremities: Normal digits & nails Neuro/Psych: No focal deficits ED Labs/Radiology/EKG Results - Radiology Results Results: After injection of 60 mL gastrograffin a KUB was taken which showed the contrast material to be in the gastrointestinal tract. ED Assessment - Assessment General Assessment: 20 Bulgarian G-tube inserted using a curved hemostat to hold the tip of the G-tube ED Septic Shock - . Is Septic Shock (SBP<90, OR Lactate>4 mmol\L) present?: No ED Reassessment (Disposition) - Reassessment Reassessment Condition:: Improved - Diagnosis Diagnosis:: G-tube replacement; severe mental retardation; cerebral palsy - Patient Disposition Discharge/Transfer:: Half-Way Care - SNF Spoke to:: Morino Condition at Disposition:: Stable, Improved
[2017-03-29] MEDS ORDERED: Diatrizoate Meglumine/Diatri 30 mL Sol ONE (22:15)
--- NOTE | 2017-03-30 07:53 | Diagnostic Imaging Report ---
Exam: KUB of the abdomen HISTORY: G tube placement Findings: Portable summation of the abdomen at 2226 hours with injection of contrast material gastrostomy tube demonstrates normal opacification of the stomach with progression of contrast material into the duodenum. IMPRESSION: Gastrostomy tube in the stomach.
== END 2017-03-29 23:05 ==
LOC: ER 21:35
DX: K94.23 Gastrostomy malfunction (principal); G80.9 Cerebral palsy, unspecified; F72 Severe intellectual disabilities
CPT/HCPCS: 99284; 43760; 96372; 74240; J2060; Z7502; Z7610

== ENCOUNTER 2018-08-12 11:15 | Inpatient (IN) | payer MEDICARE, MEDICAID ==
--- NOTE | 2018-08-12 12:16 | ED Physician Chart ---
ED Chief Complaint/HPI - Patient Information Date Seen:: 08/12/18 Time Seen:: 11:30 Chief Complaint:: g tube redness History of Present Illness:: noticed today Allergies:: Allergies Allergy/AdvReac Type Severity Reaction Status Date / Time codeine Allergy Verified 01/29/17 16:31 erythromycin base Allergy Verified 01/29/17 16:31 levofloxacin [From Levaquin] Allergy Verified 01/29/17 16:31 Penicillins [PCN] Allergy Verified 01/29/17 16:31 Vitals:: Vital Signs - 8 hr 08/12/18 11:26 Temp 97.0 F HR 75 RR 26 BP 161/55 O2 Sat % 96 Historian:: Medical Records Review:: Nurse's Note Reviewed, Transfer documents Reviewed ED Review of Systems - Review of Systems General/Constitutional: No fever (pt unable to give) ED Past Medical History - Past Medical History Past Medical History: HTN (pt unable), Seizures, Other Family Medical History - Family Member Mother History Unknown: Yes Ethnicity: Unknown Living Status: Unknown Hx Family Cancer: No Hx Family Coronary Artery Disease: No Hx Family Congestive Heart Failure: No Hx Family Hypertension: Yes Hx Family Stroke: No Hx Family Diabetes: No Hx Family Seizures: Yes Hx Family Dementia: No Hx Family AIDS: No Hx Family HIV: No Hx Family COPD: No Hx Family Hepatitis: No Hx Family Psychiatric Problems: No Hx Family Tuberculosis: No ED Physical Exam - Physical Examination General/Constitutional: Non-toxic appearing Head: Atraumatic ENMT: External ears, nose nl Respiratory: Nl effort/Exclusion Cardio Vascular: RRR GI: No tenderness/rebounding/guarding (redness induration) ED Assessment - Assessment General Assessment: localized cellulitis ED Septic Shock - . Is Septic Shock (SBP<90, OR Lactate>4 mmol\L) present?: No - <6hrs of presentation: Vital Signs: Vital Signs - 8 hr 08/12/18 11:26 Temp 97.0 F HR 75 RR 26 BP 161/55 O2 Sat % 96 ED Reassessment (Disposition) - Reassessment Reassessment Condition:: Unchanged - Patient Disposition Discharge/Transfer:: Acute Care w/in this hosp Condition at Disposition:: Stable
[2018-08-12] MEDS ORDERED: Clindamycin 150 mg/mL 4mL Vial IM STA (12:25)
[2018-08-12 12:49] LABS: BASOPHILE ABSOLUTE 0.1 Th/cumm (0-0.2); EOSINOPHILE ABSOLUTE 0.2 Th/cmm (0.1-0.4); HEMOGLOBIN 14.6 gm/dL (12-16); LYMPHOCYTE ABSOLUTE 1.4 Th/cmm (1.5-3.0); MEAN CELL VOLUME 103.1 fl (80-99); MEAN CORPUSCULAR HEMOGLOBIN 34.9 pg (26.0-30.0); MEAN CORPUSCULAR HGB CONC 33.8 pg (28.0-36.0); MONOCYTE ABSOLUTE 1.9 Th/cmm (0.3-1.0); NEUTROPHILE ABSOLUTE 6.4 Th/cmm (1.8-8.0); PLATELET COUNT 218 Th/cmm (150-400); RED BLOOD COUNT 4.17 Mil/cmm (4.30-5.70); RED CELL DISTRIBUTION WIDTH 11.9 % (11.5-20.0)
[2018-08-12] MEDS ORDERED: Clindamycin 150 mg/mL 4mL Vial ONE (12:53)
[2018-08-12 13:01] LABS: % LYMPHOCYTES 13.7 % (20.0-50.0); % MONOCYTES 18.8 % (2.0-10.0)
[2018-08-12 13:02] LABS: % EOSINOPHILS 1.7 % (0.0-5.0)
[2018-08-12 13:14] LABS: ANION GAP 11.4 (7.0-16.0); BUN - UREA NITROGEN 15 mg/dL (7-25); CALCIUM SERUM 8.9 mg/dL (8.6-10.3); CARBON DIOXIDE 24.1 mEq/L (21.0-31.0); CHLORIDE 98 mEq/L (98-107); CREATININE - SERUM 0.6 mg/dL (0.7-1.3); GFR AFRICAN-AMERICAN > 60.0 ml/min (>90); GFR NON AFRICAN-AMERICAN > 60.0 ml/min; GLUCOSE 98 mg/dL (70-105); POTASSIUM SERUM 4.5 mEq/L (3.5-5.1); SODIUM SERUM 129 mEq/L (136-145)
--- NOTE | 2018-08-12 13:23 | Diagnostic Imaging Report ---
Portable chest x-ray HISTORY: Cough The heart appears somewhat enlarged. Allowing for a poor inspiration, no acute focal prominent processes are seen. Severe deformity and chronic changes noted about the right shoulder and humeral head. IMPRESSION: 1. No acute abnormalities 2. Cardiomegaly 3. Severe chronic deformity about the right shoulder
[2018-08-12] MEDS: Sodium Chloride 0.9% 1,000 ML IV SCH (16:05)
[2018-08-12 17:11] VITALS: BP 102/63
[2018-08-12] MEDS: Gentamicin 0.3% Ophth Soln 5mL Bottle EACH EYE SCH (23:17)
[2018-08-13] MEDS ORDERED: Fleet Enema 135 mL RC PRN (00:11)
[2018-08-13] MEDS ORDERED: Magnesium Hydroxide (MOM) 30 mL UDC GT PRN (00:12)
[2018-08-13] MEDS: Gentamicin 0.3% Ophth Soln 5mL Bottle EACH EYE SCH ×4 (05:26→22:24)
[2018-08-13 05:45] LABS: HEMATOCRIT 39.5 % (41.0-60); HEMOGLOBIN 13.7 gm/dL (12-16); MEAN CELL VOLUME 103.1 fl (80-99); MEAN CORPUSCULAR HEMOGLOBIN 35.8 pg (26.0-30.0); MEAN CORPUSCULAR HGB CONC 34.7 pg (28.0-36.0); RED BLOOD COUNT 3.83 Mil/cmm (4.30-5.70); RED CELL DISTRIBUTION WIDTH 12.5 % (11.5-20.0); WHITE BLOOD COUNT 7.1 Th/cmm (4.8-10.8)
[2018-08-13 05:53] LABS: ANION GAP 10.7 (7.0-16.0); BUN - UREA NITROGEN 11 mg/dL (7-25); CALCIUM SERUM 8.6 mg/dL (8.6-10.3); CARBON DIOXIDE 25.7 mEq/L (21.0-31.0); CHLORIDE 102 mEq/L (98-107); CREATININE - SERUM 0.6 mg/dL (0.7-1.3); GFR AFRICAN-AMERICAN > 60.0 ml/min (>90); GFR NON AFRICAN-AMERICAN > 60.0 ml/min; GLUCOSE 92 mg/dL (70-105); POTASSIUM SERUM 4.4 mEq/L (3.5-5.1); SODIUM SERUM 134 mEq/L (136-145)
[2018-08-13] MEDS: Sodium Chloride 0.9% 1,000 ML IV SCH (06:31)
[2018-08-13] MEDS: Levothyroxine 0.1 Mg Tab GT SCH (06:31)
[2018-08-13 08:00] LABS: BAND NEUTROPHILE 2 % (0-10); EOSINOPHIL 2 % (0-5); LYMPHOCYTE 20 % (20-50); MONOCYTE 22 % (2-10); NEUTROPHILS 54 % (40-80); PLATELET COUNT 164 Th/cmm (150-400)
[2018-08-13 08:01] LABS: BASOPHIL 0 % (0-3)
[2018-08-13] MEDS ORDERED: [UNRECOGNIZED DRUG - OTHER] TP SCH (09:00)
[2018-08-13] MEDS ORDERED: DIMETHICONE TP SCH (09:00)
[2018-08-13] MEDS ORDERED: carBAMazepine 200 mg/10 mL UDC GT SCH (09:00)
[2018-08-13] MEDS ORDERED: MELOXICAM 7.5 MG GT SCH (09:00)
[2018-08-13] MEDS ORDERED: COLLOIDAL OATMEAL TP SCH (09:00)
[2018-08-13] MEDS ORDERED: Levetiracetam 500 mg/5mL 5mL UDSyr *for ORAL USE ONLY GT SCH (09:00)
[2018-08-13] MEDS: carBAMazepine 200 mg/10 mL UDC GT SCH ×2 (10:03→16:57)
[2018-08-13] MEDS: Calcium Carb/Vit D 500 mg/200 U Tab GT SCH ×2 (10:04→16:58)
[2018-08-13] MEDS: Lactobacillus Rhamnosus GG 15 Billion CFU CAP.SPRINK GT SCH (10:04)
[2018-08-13] MEDS: Multivitamin w/ Minerals Tab GT SCH (10:12)
[2018-08-13] MEDS: Levetiracetam 500 mg/5mL 5mL UDSyr *for ORAL USE ONLY GT SCH ×2 (10:15→16:58)
[2018-08-13] MEDS ORDERED: Diatrizoate Meglumine/Diatri 30 mL Sol ONE (16:08)
--- NOTE | 2018-08-13 22:50 | Consultation ---
DATE OF CONSULTATION: 08/13/2018 REQUESTING PHYSICIAN: Glenys Martinez M.D. REASON FOR CONSULTATION: Malfunctioning G-tube with possible cellulitis. HISTORY OF PRESENT ILLNESS: A 62-year-old male with history of encephalopathy and mental retardation with cerebral palsy, admitted to the hospital for possible G-tube site cellulitis. We were asked to see him for G-tube evaluation. He is tolerating bolus feeding. There is no apparent leakage. He is nonverbal. PAST MEDICAL HISTORY: As above, also notable for hypertension, coronary artery disease, osteoarthritis, dysphagia, and seizure disorder. PAST SURGICAL HISTORY: G-tube insertion. SOCIAL HISTORY: No recent tobacco, alcohol or drugs. Resident of a custodial facility. FAMILY HISTORY: Noncontributory. ALLERGIES: CODEINE, ERYTHROMYCIN, LEVAQUIN, AND PENICILLIN. REVIEW OF SYSTEMS: A comprehensive 12-point review of system was conducted and is only positive for those signs and symptoms present in the history of present illness. CURRENT MEDICATIONS: Vitamin C, Dulcolax suppository as needed, calcium with vitamin D, Tegretol, Plavix, Culturelle, Keppra, Synthroid, lisinopril, Ativan p.r.n., milk of magnesia p.r.n., Lopressor, IV vancomycin, nitroglycerin p.r.n., Fleet enema p.r.n., valproic acid. PHYSICAL EXAMINATION: VITAL SIGNS: Temperature of 96.9, blood pressure 103/55, pulse of 97, respirations 18, O2 sats 97% on room air. GENERAL: The patient is a well-developed, chronically ill-appearing male who is in no acute distress, nonverbal. HEENT: Sclerae nonicteric. Oropharynx is clear. CARDIOVASCULAR: Regular rate and rhythm. LUNGS: Clear to auscultation bilaterally. ABDOMEN: Soft, nontender, nondistended. Intact G-tube of replacement type. The site itself is somewhat erythematous, but clean and dry. The impressions of the outer bumper of the G-tube are on the skin itself. EXTREMITIES: Contractured. RECTAL: Deferred. LABORATORY DATA AND IMAGING: WBC 7.1, hemoglobin 13.7, platelet count is 164. Creatinine is normal. IMPRESSION: 1. Dysphagia with gastrostomy tube malfunction with outer bumper being too close to the skin and perhaps too tight. The impression of the bumper is on the skin itself. The dressing is outside the bumper and away from the skin, less likely is the possibility of gastrostomy tube malposition or buried bumper syndrome. 2. Seizure disorder and encephalopathy along with mental retardation. 3. History of hypertension. RECOMMENDATIONS: 1. Continue bolus tube feedings. 2. Adjusted the outer bumper to be a little bit looser and away from the skin and this allowed for the dressing to be in between the bumper and the skin to prevent further skin injury. 3. Check KUB to rule out constipation and to confirm that the G-tube tip is in the stomach. Make sure water flushes to maintain patency. 4. Monitor labs. Thank you, Dr. Martinez, for involving us in the care of your patient. If you have any further questions, please call us. JOB# [id number]
[2018-08-14] MEDS: Gentamicin 0.3% Ophth Soln 5mL Bottle EACH EYE SCH ×4 (04:22→23:00)
[2018-08-14 05:41] LABS: ANION GAP 14.4 (7.0-16.0); BUN - UREA NITROGEN 11 mg/dL (7-25); CALCIUM SERUM 8.8 mg/dL (8.6-10.3); CARBON DIOXIDE 22.3 mEq/L (21.0-31.0); CHLORIDE 103 mEq/L (98-107); CREATININE - SERUM 0.6 mg/dL (0.7-1.3); GFR AFRICAN-AMERICAN > 60.0 ml/min (>90); GFR NON AFRICAN-AMERICAN > 60.0 ml/min; GLUCOSE 86 mg/dL (70-105); MAGNESIUM 2.1 mg/dL (1.9-2.7); POTASSIUM SERUM 4.7 mEq/L (3.5-5.1); SODIUM SERUM 135 mEq/L (136-145)
[2018-08-14] MEDS: Levothyroxine 0.1 Mg Tab GT SCH (06:37)
--- NOTE | 2018-08-14 07:54 | Diagnostic Imaging Report ---
Upper GI (Limited) HISTORY: Gastrostomy tube placement Water-soluble contrast was instilled through patient's gastrostomy tube. The exam demonstrates opacification of the gastric lumen with flow contrast in the small bowel. IMPRESSION: 1. Confirmation of gastrostomy tube within the gastric lumen
--- NOTE | 2018-08-14 08:23 | Internal Medicine Prog Note ---
Internal Medicine Subjective - Subjective Service Date: 08/14/18 (No events noted) Patient seen and examined:: without staff Patient is:: asleep Internal Medicine Objective - Results Result Diagrams: 08/13/18 04:15 08/14/18 04:55 Recent Labs: Laboratory Last Values WBC 7.1 Th/cmm (4.8-10.8) 08/13/18 04:15 RBC 3.83 Mil/cmm (4.30-5.70) L 08/13/18 04:15 Hgb 13.7 gm/dL (12-16) 08/13/18 04:15 Hct 39.5 % (41.0-60) L 08/13/18 04:15 MCV 103.1 fl (80-99) H 08/13/18 04:15 MCH 35.8 pg (26.0-30.0) H 08/13/18 04:15 MCHC Differential 34.7 pg (28.0-36.0) 08/13/18 04:15 RDW 12.5 % (11.5-20.0) 08/13/18 04:15 Plt Count 164 Th/cmm (150-400) D 08/13/18 04:15 MPV 8.6 fl 08/13/18 04:15 Add Manual Diff YES 08/13/18 04:15 Neutrophils % 65.0 % (40.0-80.0) 08/12/18 12:40 Band Neutrophils % 2 % (0-10) 08/13/18 04:15 Lymphocytes % 13.7 % (20.0-50.0) L 08/12/18 12:40 Monocytes % 18.8 % (2.0-10.0) H 08/12/18 12:40 Eosinophils % 1.7 % (0.0-5.0) 08/12/18 12:40 Basophils % 0.0 % (0.0-2.0) 08/12/18 12:40 Neutrophils (Manual) 54 % (40-80) 08/13/18 04:15 Lymphocytes 20 % (20-50) 08/13/18 04:15 Monocytes 22 % (2-10) H 08/13/18 04:15 Eosinophils 2 % (0-5) 08/13/18 04:15 Basophils 0 % (0-3) 08/13/18 04:15 Sodium 135 mEq/L (136-145) L 08/14/18 04:55 Potassium 4.7 mEq/L (3.5-5.1) 08/14/18 04:55 Chloride 103 mEq/L (98-107) 08/14/18 04:55 Carbon Dioxide 22.3 mEq/L (21.0-31.0) 08/14/18 04:55 Anion Gap 14.4 (7.0-16.0) 08/14/18 04:55 BUN 11 mg/dL (7-25) 08/14/18 04:55 Creatinine 0.6 mg/dL (0.7-1.3) L 08/14/18 04:55 Est GFR ( Amer) > 60.0 ml/min (>90) 08/14/18 04:55 Est GFR (Non-Af Amer) > 60.0 ml/min 08/14/18 04:55 BUN/Creatinine Ratio 18.3 08/14/18 04:55 Glucose 86 mg/dL (70-105) 08/14/18 04:55 Calcium 8.8 mg/dL (8.6-10.3) 08/14/18 04:55 Magnesium 2.1 mg/dL (1.9-2.7) 08/14/18 04:55 GT-SITE CX: prelim-GPR/GPC/GNR - Physical Exam Vitals and I&O: Vital Signs Temp 98.6 F 08/14/18 04:00 Pulse 80 08/14/18 04:00 Resp 18 08/14/18 04:00 BP 112/70 08/14/18 04:00 Pulse Ox 97 08/14/18 04:00 Intake & Output 08/13/18 08/14/18 08/14/18 18:59 06:59 18:59 Intake Total 1000 Balance 1000 Weight (lbs) 61.689 kg Intake: Tube Feeding 1000 Other: # Voids 4 # Bowel Movements 0 Weight Source Bedscale Active Medications: Current Medications Acetaminophen (Tylenol) 650 mg GT Q4HR PRN PRN Reason: Pain Or Fever >99.9 Stop: 10/12/18 00:10 Last Admin: 08/13/18 20:13 Dose: 650 mg Ascorbic Acid (Vitamin C) 500 mg GT DAILY MIRIAN Stop: 10/12/18 08:59 Last Admin: 08/13/18 10:15 Dose: 500 mg Bisacodyl (Dulcolax 10 Mg Supp) 10 mg RC Q96H PRN PRN Reason: MODERATE CONSTIPATION Stop: 10/12/18 00:10 Calcium/Vitamin D (Oscal W/Vitamin D) 1 tab GT BID MIRIAN Stop: 10/12/18 08:59 Last Admin: 08/13/18 16:58 Dose: 1 tab Carbamazepine (Tegretol) 150 mg GT BID MIRIAN; Protocol Stop: 10/12/18 08:59 Last Admin: 08/13/18 16:57 Dose: 150 mg Clopidogrel Bisulfate (Plavix) 75 mg GT HS MIRIAN Stop: 10/12/18 20:59 Last Admin: 08/13/18 20:13 Dose: 75 mg Gentamicin Sulfate (Gentak 0.3% Ophth Soln) 2 drop EACH EYE Q6H MIRIAN Stop: 10/11/18 22:44 Last Admin: 08/14/18 04:22 Dose: 2 drop Vancomycin HCl 1 gm/ Sodium (Chloride) 250 mls @ 165 mls/hr IV Q12H MIRIAN Stop: 10/13/18 05:59 Last Admin: 08/14/18 05:16 Dose: 165 mls/hr Lactobacillus Rhamnosus (Culturelle 15b) 1 each GT DAILY [facility] Stop: 10/12/18 08:59 Last Admin: 08/13/18 10:04 Dose: 1 each Levetiracetam (Keppra) 500 mg GT BID MIRIAN Stop: 10/12/18 08:59 Last Admin: 08/13/18 16:58 Dose: 500 mg Levothyroxine Sodium (Synthroid) 0.1 mg GT QDAC MIRIAN Stop: 10/12/18 07:29 Last Admin: 08/14/18 06:37 Dose: 0.1 mg Lisinopril (Zestril) 5 mg GT DAILY [facility] Stop: 10/12/18 08:59 Last Admin: 08/13/18 08:49 Dose: Not Given Lorazepam (Ativan) 1 mg IVP Q3H PRN; Protocol PRN Reason: Agitation Stop: 10/11/18 22:31 Last Admin: 08/13/18 14:57 Dose: 1 mg Lorazepam (Ativan) 1 mg GT QMONTH PRN; Protocol PRN Reason: FINGER NAIL CARE Stop: 10/12/18 09:59 Magnesium Hydroxide (Milk Of Magnesia) 30 ml GT Q72H PRN PRN Reason: MILD CONSTIPATION Stop: 10/12/18 00:11 Metoprolol Tartrate (Lopressor) 50 mg GT QAM MIRIAN Stop: 10/12/18 08:59 Last Admin: 08/13/18 10:05 Dose: Not Given Miscellaneous (Dimethicone/Colloidal Oatmeal [Aveeno Daily Moisturizing Lot]) 1.25 appl TP DAILY MIRIAN Stop: 10/12/18 08:59 Last Admin: 08/13/18 08:49 Dose: Not Given Miscellaneous (Vancomycin Iv Per Pharmacy) 1 ea MC DAILY MIRIAN Stop: 10/12/18 16:29 Nitroglycerin (Nitrostat) 0.4 mg SL Q5MIN PRN PRN Reason: Chest Pain Stop: 10/12/18 00:13 Sodium Phosphate (Fleet Enema) 135 ml RC Q96H PRN PRN Reason: SEVERE CONSTIPATION Stop: 10/12/18 00:10 Valproate Sodium (Depakene) 750 mg GT Q12HR MIRIAN Stop: 10/12/18 08:59 Last Admin: 08/13/18 20:13 Dose: 750 mg General: NAD Neck: Supple, No JVD, No thyromegaly, No LAD Lungs: CTAB Cardiovascular: RRR, Normal S2, without murmur Abdomen: soft, non-tender Extremities: clear Neurological: no change - Procedures Procedures: Procedures Procedure Code Date CHANGE FEEDING DEVICE IN UP INTEST TRACT, HVAC OPERATIONS TECHNICIAN APPROACH [id number] 04/15/18 CHANGE GASTROSTOMY TUBE 59770 07/29/[address] GASTROSTOMY TUBE 14276 07/08/16 INJECT/INFUSE NEC 99.29 02/21/13 INSERTION OF FEEDING DEVICE INTO STOMACH, PERC APPROACH [id number] 07/08/16 INSERTION OF FEEDING DEVICE INTO STOMACH, PERC ENDO APPROACH [id number] 08/12/15 INSERTION OF INFUSION DEVICE INTO UPPER VEIN, PERC APPROACH 29UR36O 01/01/17 THER/PROPH/DIAG IV INF, INIT 70796 08/08/07 sbft: GT in place Internal Medicine Assmt/Plan - Assessment Assessment: -GT SITE CELLULITIS -HX OF DYSPHAGIA, S/P PEG PLACEMENT -HX OF CP/ID -HX OF CAD -HX OF HYPOTHYROIDISM - Plan Plan: CONT WITH IV ABXS, FOLLOW C/S CONT WITH OTHE MEDS SCHEDULED GI FU Nutritional Asmnt/Malnutr-PDOC - Dietary Evaluation Malnutrition Findings (Please click <Entered> for more info): Nutritional Asmnt/Malnutrition Start: 08/13/18 10: 51 Text: Status: Complete Freq: Protocol: Document 08/13/18 10:51 DANNY (Rec: 08/13/18 10:55 DANNY [email or web address]) Nutritional Asmnt/Malnutrition Patient General Information Nutritional Screening High Risk Diagnosis G TUBE SITE CELLULITIS AND HYPONATREMIA Pertinent Medical Hx/Surgical Hx NOT NOTED Subjective Information PT IS A 62 YEAR OLD MALE C/O G TUBE SITE REDNESS. HT: 51 WT: 136 LB 12.8 OZ (61.82 KG) BMI: 25.69 (OVERWEIGHT) GI: FLAT, SOFT, NON-TENDER SWALLOWING IMPAIRED, G TUBE PRESENT BM: NOT NOTED I/O: 1610/NOT NOTED SKIN: PINK, WARM, DRY, ELASTIC , RASH WITH ITCHING AND REDNESS SHARRI: 10 DIET ORDER: JEVITY 1.2 -1 CAN BOLUS Q4HRS (12AM,4AM,8AM,12PM ,4PM,8PM), 60ML WATER FLUSH ESTIMATED ENERGY NEEDS: ( GERIATRIC) 9075-9102 KCALS (25-30 KCALS/ KG) 62-74 G PRO (1.0-1.2 G/KG) 8459-8331 ML (25-30 ML/KG) CURRENT G TUBE FEEDING IS PROVIDING 1710 KCALS AND 80 G PRO TO MEET 100% KCAL AND 100 % PRO NEEDS. 1206 ML FLUIDS ARE PROVIDED INCLUDING THE 60ML FLUSH- ADEQUATE. Current Diet Order/ Nutrition Support JEVITY 1.2 -1 CAN BOLUS Q4HRS (12AM,4AM,8AM,12PM,4PM,8PM), Pertinent Medications MOM (PRN), NACL 0.9% 1000ML@ 75ML/HR IV [id number] MIRIAN, FLEET ENEMA (PRN) Pertinent Labs 08/13: HGB/HCT 13.7/39.5, NA 134 , BUN/CR 11/0.6 Nutritional Hx/Data Height 1.55 m Height (Calculated Centimeters) 154.9 Current Weight (lbs) 61.689 kg Weight (Calculated Kilograms) 61.7 Weight (Calculated Grams) 13932.6 [place] Body Weight 105 % [place] Body Weight 130 Body Mass Index (BMI) 25.7 Weight Status Overweight GI Symptoms GI Symptoms None Last BM NOT NOTED Difficult in: Swallowing Skin Integrity/Comment: PINK, WARM, DRY, ELASTIC, RASH WITH ITCHING AND REDNESS Estimated Nutritional Goals BEE in Kcals: Using Current wt Calories/Kcals/Kg 25-30 Kcals Calculated 4314-1109 Protein: Using Current wt Protein g/k.0-1.2 Protein Calculated 62-74 Fluid: ml 1668-0948 ML (25-30 ML/KG) Nutritional Problem 1. Problem Problem SWALLOWING DIFFICULTY Etiology R/T DYSPHAGIA Signs/Symptoms: AEB G TUBE PLACEMENT Malnutrition Related to Morbid Obesity Malnutrition related to morbid obesity No Intervention/Recommendation Comments CONTINUE WITH CURRENT G TUBE FEEDING: JEVITY 1.2 -1 CAN BOLUS Q4HRS (12AM,4AM,8AM,12PM,4PM,8PM), 60ML WATER FLUSH Expected Outcomes/Goals Expected Outcomes/Goals 1. ENTERAL FORMULA TO CONTINUE TO MEET AT LEAST 90% ESTIMATED NUTRITIONAL NEEDS. 2. MONITOR EN TOLERANCE, WT, NUTRITION RELATED LABS AND SKIN INTEGRITY. 3. F/U MEDIUM RISK IN 3-5 DAYS, 08/16-08/18
[2018-08-14] MEDS: Calcium Carb/Vit D 500 mg/200 U Tab GT SCH ×2 (08:43→16:56)
[2018-08-14] MEDS: Multivitamin w/ Minerals Tab GT SCH (08:43)
[2018-08-14] MEDS: Levetiracetam 500 mg/5mL 5mL UDSyr *for ORAL USE ONLY GT SCH ×2 (08:43→16:56)
[2018-08-14] MEDS: carBAMazepine 200 mg/10 mL UDC GT SCH ×2 (08:43→16:56)
[2018-08-14] MEDS: Lactobacillus Rhamnosus GG 15 Billion CFU CAP.SPRINK GT SCH (08:43)
--- NOTE | 2018-08-14 13:59 | GI Progress Note ---
Subjective - Review of Systems Service Date: 08/14/18 Subjective: EVENTS NOTED. RICK BOLUS GT FEEDS. GI OBJECTIVE - Results Result Diagrams: 08/13/18 04:15 08/14/18 04:55 Recent Labs: Laboratory Last Values WBC 7.1 Th/cmm (4.8-10.8) 08/13/18 04:15 RBC 3.83 Mil/cmm (4.30-5.70) L 08/13/18 04:15 Hgb 13.7 gm/dL (12-16) 08/13/18 04:15 Hct 39.5 % (41.0-60) L 08/13/18 04:15 MCV 103.1 fl (80-99) H 08/13/18 04:15 MCH 35.8 pg (26.0-30.0) H 08/13/18 04:15 MCHC Differential 34.7 pg (28.0-36.0) 08/13/18 04:15 RDW 12.5 % (11.5-20.0) 08/13/18 04:15 Plt Count 164 Th/cmm (150-400) D 08/13/18 04:15 MPV 8.6 fl 08/13/18 04:15 Add Manual Diff YES 08/13/18 04:15 Neutrophils % 65.0 % (40.0-80.0) 08/12/18 12:40 Band Neutrophils % 2 % (0-10) 08/13/18 04:15 Lymphocytes % 13.7 % (20.0-50.0) L 08/12/18 12:40 Monocytes % 18.8 % (2.0-10.0) H 08/12/18 12:40 Eosinophils % 1.7 % (0.0-5.0) 08/12/18 12:40 Basophils % 0.0 % (0.0-2.0) 08/12/18 12:40 Neutrophils (Manual) 54 % (40-80) 08/13/18 04:15 Lymphocytes 20 % (20-50) 08/13/18 04:15 Monocytes 22 % (2-10) H 08/13/18 04:15 Eosinophils 2 % (0-5) 08/13/18 04:15 Basophils 0 % (0-3) 08/13/18 04:15 Sodium 135 mEq/L (136-145) L 08/14/18 04:55 Potassium 4.7 mEq/L (3.5-5.1) 08/14/18 04:55 Chloride 103 mEq/L (98-107) 08/14/18 04:55 Carbon Dioxide 22.3 mEq/L (21.0-31.0) 08/14/18 04:55 Anion Gap 14.4 (7.0-16.0) 08/14/18 04:55 BUN 11 mg/dL (7-25) 08/14/18 04:55 Creatinine 0.6 mg/dL (0.7-1.3) L 08/14/18 04:55 Est GFR ( Amer) > 60.0 ml/min (>90) 08/14/18 04:55 Est GFR (Non-Af Amer) > 60.0 ml/min 08/14/18 04:55 BUN/Creatinine Ratio 18.3 08/14/18 04:55 Glucose 86 mg/dL (70-105) 08/14/18 04:55 Calcium 8.8 mg/dL (8.6-10.3) 08/14/18 04:55 Magnesium 2.1 mg/dL (1.9-2.7) 08/14/18 04:55 - Physical Exam Vitals and I&O: Vital Signs Temp 97.1 F 08/14/18 11:56 Pulse 61 08/14/18 11:56 Resp 18 08/14/18 11:56 BP 134/51 08/14/18 11:56 Pulse Ox 92 08/14/18 11:56 Intake & Output 08/13/18 08/14/18 08/14/18 18:59 06:59 18:59 Intake Total 1000 Balance 1000 Weight (lbs) 61.689 kg Intake: Tube Feeding 1000 Other: # Voids 4 # Bowel Movements 0 Weight Source Bedscale Active Medications: Current Medications Acetaminophen (Tylenol) 650 mg GT Q4HR PRN PRN Reason: Pain Or Fever >99.9 Stop: 10/12/18 00:10 Last Admin: 08/13/18 20:13 Dose: 650 mg Ascorbic Acid (Vitamin C) 500 mg GT DAILY MIRIAN Stop: 10/12/18 08:59 Last Admin: 08/14/18 08:44 Dose: 500 mg Bisacodyl (Dulcolax 10 Mg Supp) 10 mg RC Q96H PRN PRN Reason: MODERATE CONSTIPATION Stop: 10/12/18 00:10 Calcium/Vitamin D (Oscal W/Vitamin D) 1 tab GT BID MIRIAN Stop: 10/12/18 08:59 Last Admin: 08/14/18 08:43 Dose: 1 tab Carbamazepine (Tegretol) 150 mg GT BID MIRIAN; Protocol Stop: 10/12/18 08:59 Last Admin: 08/14/18 08:43 Dose: 150 mg Clopidogrel Bisulfate (Plavix) 75 mg GT HS MIRIAN Stop: 10/12/18 20:59 Last Admin: 08/13/18 20:13 Dose: 75 mg Gentamicin Sulfate (Gentak 0.3% Oph Soln) 2 drop EACH EYE Q6H MIRIAN Stop: 10/11/18 22:44 Last Admin: 08/14/18 11:48 Dose: 2 drop Vancomycin HCl 1 gm/ Sodium (Chloride) 250 mls @ 165 mls/hr IV Q12H MIRIAN Stop: 10/13/18 05:59 Last Admin: 08/14/18 05:16 Dose: 165 mls/hr Lactobacillus Rhamnosus (Culturelle 15b) 1 each GT DAILY MIRIAN Stop: 10/12/18 08:59 Last Admin: 08/14/18 08:43 Dose: 1 each Levetiracetam (Keppra) 500 mg GT BID [facility] Stop: 10/12/18 08:59 Last Admin: 08/14/18 08:43 Dose: 500 mg Levothyroxine Sodium (Synthroid) 0.1 mg GT QDAC MIRIAN Stop: 10/12/18 07:29 Last Admin: 08/14/18 06:37 Dose: 0.1 mg Lisinopril (Zestril) 5 mg GT DAILY MIRIAN Stop: 10/12/18 08:59 Last Admin: 08/14/18 08:44 Dose: 5 mg Lorazepam (Ativan) 1 mg IVP Q3H PRN; Protocol PRN Reason: Agitation Stop: 10/11/18 22:31 Last Admin: 08/14/18 08:42 Dose: 1 mg Lorazepam (Ativan) 1 mg GT QMONTH PRN; Protocol PRN Reason: FINGER NAIL CARE Stop: 10/12/18 09:59 Magnesium Hydroxide (Milk Of Magnesia) 30 ml GT Q72H PRN PRN Reason: MILD CONSTIPATION Stop: 10/12/18 00:11 Metoprolol Tartrate (Lopressor) 50 mg GT QAM MIRIAN Stop: 10/12/18 08:59 Last Admin: 08/14/18 08:45 Dose: 50 mg Miscellaneous (Dimethicone/Colloidal Oatmeal [Aveeno Daily Moisturizing Lot]) 1.25 appl TP DAILY MIRIAN Stop: 10/12/18 08:59 Last Admin: 08/13/18 08:49 Dose: Not Given Miscellaneous (Vancomycin Iv Per Pharmacy) 1 ea MC DAILY MIRIAN Stop: 10/12/18 16:29 Nitroglycerin (Nitrostat) 0.4 mg SL Q5MIN PRN PRN Reason: Chest Pain Stop: 10/12/18 00:13 Sodium Phosphate (Fleet Enema) 135 ml RC Q96H PRN PRN Reason: SEVERE CONSTIPATION Stop: 10/12/18 00:10 Valproate Sodium (Depakene) 750 mg GT Q12HR MIRIAN Stop: 10/12/18 08:59 Last Admin: 08/14/18 08:43 Dose: 750 mg General: No acute distress Cardiovascular: Regular rate Lungs: Clear to auscultation Abdomen: Bowel sounds, Soft, Other (INTACT GT), no Tender - Procedures Procedures: Procedures Procedure Code Date CHANGE FEEDING DEVICE IN UP INTEST TRACT, EARLY CHILDHOOD EDUCATION SPECIALIST APPROACH [id number] 04/15/18 CHANGE GASTROSTOMY TUBE 73804 07/29/[address] GASTROSTOMY TUBE 35116 07/08/16 INJECT/INFUSE NEC 99.29 02/21/13 INSERTION OF FEEDING DEVICE INTO STOMACH, PERC APPROACH [id number] 07/08/16 INSERTION OF FEEDING DEVICE INTO STOMACH, PERC ENDO APPROACH [id number] 08/12/15 INSERTION OF INFUSION DEVICE INTO UPPER VEIN, PERC APPROACH 29BK72R 01/01/17 THER/PROPH/DIAG IV INF, INIT 98534 08/08/07 Assessment/Plan - Problem List Patient Problems: All Active Problems GASTROSTOMY STOMA REDNESS (Acute) - Assessment Assessment: IMPRESSION: 1. GT LEAK/CELLULITIS - LIKELY DUE TO OUTER BUMPER TOO TIGHT - LOOSENED AND DRESSING PLACED BETWEEN SKIN AND BUMPER. KUB CONFIRMED APPROPRIATE PLACEMENT. 2. DYSPHAGIA. RECS: 1. BOLUS TUBE FEEDS TOLERATED. 2. CONTINUE MEDS. 3. MONITOR LABS. GI WORRELL STABLE.
[2018-08-14] MEDS: Menthol/Zinc Oxide Oint 113gm Tube TP PRN (16:50)
[2018-08-15] MEDS: Gentamicin 0.3% Ophth Soln 5mL Bottle EACH EYE SCH ×4 (05:00→21:54)
[2018-08-15] MEDS: Levetiracetam 500 mg/5mL 5mL UDSyr *for ORAL USE ONLY GT SCH ×2 (08:25→16:10)
[2018-08-15] MEDS: Calcium Carb/Vit D 500 mg/200 U Tab GT SCH ×2 (08:26→16:11)
[2018-08-15] MEDS: carBAMazepine 200 mg/10 mL UDC GT SCH ×2 (08:26→16:10)
[2018-08-15] MEDS: Multivitamin w/ Minerals Tab GT SCH (08:26)
[2018-08-15] MEDS: Levothyroxine 0.1 Mg Tab GT SCH (08:26)
[2018-08-15] MEDS: Lactobacillus Rhamnosus GG 15 Billion CFU CAP.SPRINK GT SCH (08:27)
--- NOTE | 2018-08-15 08:36 | GI Progress Note ---
Subjective - Review of Systems Service Date: 08/15/18 Subjective: Tolerating G tube feeding, no leakage. GI OBJECTIVE - Results Result Diagrams: 08/13/18 04:15 08/14/18 04:55 Recent Labs: Laboratory Last Values WBC 7.1 Th/cmm (4.8-10.8) 08/13/18 04:15 RBC 3.83 Mil/cmm (4.30-5.70) L 08/13/18 04:15 Hgb 13.7 gm/dL (12-16) 08/13/18 04:15 Hct 39.5 % (41.0-60) L 08/13/18 04:15 MCV 103.1 fl (80-99) H 08/13/18 04:15 MCH 35.8 pg (26.0-30.0) H 08/13/18 04:15 MCHC Differential 34.7 pg (28.0-36.0) 08/13/18 04:15 RDW 12.5 % (11.5-20.0) 08/13/18 04:15 Plt Count 164 Th/cmm (150-400) D 08/13/18 04:15 MPV 8.6 fl 08/13/18 04:15 Add Manual Diff YES 08/13/18 04:15 Neutrophils % 65.0 % (40.0-80.0) 08/12/18 12:40 Band Neutrophils % 2 % (0-10) 08/13/18 04:15 Lymphocytes % 13.7 % (20.0-50.0) L 08/12/18 12:40 Monocytes % 18.8 % (2.0-10.0) H 08/12/18 12:40 Eosinophils % 1.7 % (0.0-5.0) 08/12/18 12:40 Basophils % 0.0 % (0.0-2.0) 08/12/18 12:40 Neutrophils (Manual) 54 % (40-80) 08/13/18 04:15 Lymphocytes 20 % (20-50) 08/13/18 04:15 Monocytes 22 % (2-10) H 08/13/18 04:15 Eosinophils 2 % (0-5) 08/13/18 04:15 Basophils 0 % (0-3) 08/13/18 04:15 Sodium 135 mEq/L (136-145) L 08/14/18 04:55 Potassium 4.7 mEq/L (3.5-5.1) 08/14/18 04:55 Chloride 103 mEq/L (98-107) 08/14/18 04:55 Carbon Dioxide 22.3 mEq/L (21.0-31.0) 08/14/18 04:55 Anion Gap 14.4 (7.0-16.0) 08/14/18 04:55 BUN 11 mg/dL (7-25) 08/14/18 04:55 Creatinine 0.6 mg/dL (0.7-1.3) L 08/14/18 04:55 Est GFR ( Amer) > 60.0 ml/min (>90) 08/14/18 04:55 Est GFR (Non-Af Amer) > 60.0 ml/min 08/14/18 04:55 BUN/Creatinine Ratio 18.3 08/14/18 04:55 Glucose 86 mg/dL (70-105) 08/14/18 04:55 Calcium 8.8 mg/dL (8.6-10.3) 08/14/18 04:55 Magnesium 2.1 mg/dL (1.9-2.7) 08/14/18 04:55 Vancomycin Trough 10.7 ug/mL (5-10) H 08/15/18 05:05 - Physical Exam Vitals and I&O: Vital Signs Temp 97.4 F 08/15/18 04:00 Pulse 73 08/15/18 08:27 Resp 18 08/15/18 04:00 BP 127/82 08/15/18 08:27 Pulse Ox 98 08/15/18 04:00 Intake & Output 08/14/18 08/15/18 08/15/18 18:59 06:59 18:59 Intake Total 730 Output Total 4 Balance 730 -4 Weight (lbs) 61.689 kg 61.689 kg Intake: Intake, IV Amount 250 Vancomycin HCl 1 gm In 250 Sodium Chloride 0.9% 250 ml @ 165 mls/hr IV Q12H [facility] Rx#:[id number] Tube Feeding 480 Output: Urine 4 Other: # Voids 3 # Bowel Movements 1 0 Weight Source Bedscale Bedscale Active Medications: Current Medications Acetaminophen (Tylenol) 650 mg GT Q4HR PRN PRN Reason: Pain Or Fever >99.9 Stop: 10/12/18 00:10 Last Admin: 08/15/18 01:30 Dose: 650 mg Ascorbic Acid (Vitamin C) 500 mg GT DAILY [facility] Stop: 10/12/18 08:59 Last Admin: 08/15/18 08:27 Dose: 500 mg Bisacodyl (Dulcolax 10 Mg Supp) 10 mg RC Q96H PRN PRN Reason: MODERATE CONSTIPATION Stop: 10/12/18 00:10 Calamine/Phenol (Calmoseptine) 1 appl TP QID PRN PRN Reason: Skin Irritation Stop: 10/13/18 13:54 Last Admin: 08/14/18 16:50 Dose: 1 appl Calcium/Vitamin D (Oscal W/Vitamin D) 1 tab GT BID [facility] Stop: 10/12/18 08:59 Last Admin: 08/15/18 08:26 Dose: 1 tab Carbamazepine (Tegretol) 150 mg GT BID [facility]; Protocol Stop: 10/12/18 08:59 Last Admin: 08/15/18 08:26 Dose: 150 mg Clopidogrel Bisulfate (Plavix) 75 mg GT HS [facility] Stop: 10/12/18 20:59 Last Admin: 08/14/18 21:14 Dose: 75 mg Gentamicin Sulfate (Gentak 0.3% Oph Soln) 2 drop EACH EYE Q6H [facility] Stop: 10/11/18 22:44 Last Admin: 08/15/18 05:00 Dose: 2 drop Vancomycin HCl 1 gm/ Sodium (Chloride) 250 mls @ 165 mls/hr IV Q12H [facility] Stop: 10/13/18 05:59 Last Admin: 08/15/18 06:25 Dose: 165 mls/hr Lactobacillus Rhamnosus (Culturelle 15b) 1 each GT DAILY [facility] Stop: 10/12/18 08:59 Last Admin: 08/15/18 08:27 Dose: 1 each Levetiracetam (Keppra) 500 mg GT BID [facility] Stop: 10/12/18 08:59 Last Admin: 08/15/18 08:25 Dose: 500 mg Levothyroxine Sodium (Synthroid) 0.1 mg GT QDAC [facility] Stop: 10/12/18 07:29 Last Admin: 08/15/18 08:26 Dose: 0.1 mg Lisinopril (Zestril) 5 mg GT DAILY [facility] Stop: 10/12/18 08:59 Last Admin: 08/15/18 08:27 Dose: 5 mg Lorazepam (Ativan) 1 mg IVP Q3H PRN; Protocol PRN Reason: Agitation Stop: 10/11/18 22:31 Last Admin: 08/14/18 08:42 Dose: 1 mg Lorazepam (Ativan) 1 mg GT QMONTH PRN; Protocol PRN Reason: FINGER NAIL CARE Stop: 10/12/18 09:59 Last Admin: 08/15/18 02:34 Dose: 1 mg Magnesium Hydroxide (Milk Of Magnesia) 30 ml GT Q72H PRN PRN Reason: MILD CONSTIPATION Stop: 10/12/18 00:11 Metoprolol Tartrate (Lopressor) 50 mg GT QAM [facility] Stop: 10/12/18 08:59 Last Admin: 08/15/18 08:27 Dose: 50 mg Miscellaneous (Vancomycin Iv Per Pharmacy) 1 ea [facility] DAILY [facility] Stop: 10/12/18 16:29 Nitroglycerin (Nitrostat) 0.4 mg SL Q5MIN PRN PRN Reason: Chest Pain Stop: 10/12/18 00:13 Sodium Phosphate (Fleet Enema) 135 ml RC Q96H PRN PRN Reason: SEVERE CONSTIPATION Stop: 10/12/18 00:10 Valproate Sodium (Depakene) 750 mg GT Q12HR [facility] Stop: 10/12/18 08:59 Last Admin: 08/15/18 08:25 Dose: 750 mg General: Alert Neck: Supple Cardiovascular: Regular rate Abdomen: Bowel sounds, Soft, Other, no Tender, no Hepatomegaly, no Distended, no Rebound Extremities: no Clubbing Other physical findings: g tube site erythematous, no leakage - Procedures Procedures: Procedures Procedure Code Date CHANGE FEEDING DEVICE IN UP INTEST TRACT, HALF SOLE FITTER APPROACH [id number] 04/15/18 CHANGE GASTROSTOMY TUBE 33144 07/29/[address] GASTROSTOMY TUBE 20107 07/08/16 INJECT/INFUSE NEC 99.29 02/21/13 INSERTION OF FEEDING DEVICE INTO STOMACH, PERC APPROACH [id number] 07/08/16 INSERTION OF FEEDING DEVICE INTO STOMACH, PERC ENDO APPROACH [id number] 08/12/15 INSERTION OF INFUSION DEVICE INTO UPPER VEIN, PERC APPROACH [id number] 01/01/17 THER/PROPH/DIAG IV INF, INIT 52772 08/08/07 Assessment/Plan - Problem List Patient Problems: All Active Problems GASTROSTOMY STOMA REDNESS (Acute) - Assessment Assessment: 1. GT LEAK/CELLULITIS - LIKELY DUE TO OUTER BUMPER TOO TIGHT - LOOSENED AND DRESSING PLACED BETWEEN SKIN AND BUMPER. KUB CONFIRMED APPROPRIATE PLACEMENT. 2. DYSPHAGIA. RECS: 1. BOLUS TUBE FEEDS TOLERATED. 2. CONTINUE MEDS. 3. MONITOR LABS. GI WORRELL STABLE.
--- NOTE | 2018-08-15 09:01 | Internal Medicine Prog Note ---
Internal Medicine Subjective - Subjective Service Date: 08/15/18 (pulled iv out last night. Joby GT feeds well-noleakage from site.) Patient seen and examined:: without staff Patient is:: asleep Internal Medicine Objective - Results Result Diagrams: 08/13/18 04:15 08/14/18 04:55 Recent Labs: Laboratory Last Values WBC 7.1 Th/cmm (4.8-10.8) 08/13/18 04:15 RBC 3.83 Mil/cmm (4.30-5.70) L 08/13/18 04:15 Hgb 13.7 gm/dL (12-16) 08/13/18 04:15 Hct 39.5 % (41.0-60) L 08/13/18 04:15 MCV 103.1 fl (80-99) H 08/13/18 04:15 MCH 35.8 pg (26.0-30.0) H 08/13/18 04:15 MCHC Differential 34.7 pg (28.0-36.0) 08/13/18 04:15 RDW 12.5 % (11.5-20.0) 08/13/18 04:15 Plt Count 164 Th/cmm (150-400) D 08/13/18 04:15 MPV 8.6 fl 08/13/18 04:15 Add Manual Diff YES 08/13/18 04:15 Neutrophils % 65.0 % (40.0-80.0) 08/12/18 12:40 Band Neutrophils % 2 % (0-10) 08/13/18 04:15 Lymphocytes % 13.7 % (20.0-50.0) L 08/12/18 12:40 Monocytes % 18.8 % (2.0-10.0) H 08/12/18 12:40 Eosinophils % 1.7 % (0.0-5.0) 08/12/18 12:40 Basophils % 0.0 % (0.0-2.0) 08/12/18 12:40 Neutrophils (Manual) 54 % (40-80) 08/13/18 04:15 Lymphocytes 20 % (20-50) 08/13/18 04:15 Monocytes 22 % (2-10) H 08/13/18 04:15 Eosinophils 2 % (0-5) 08/13/18 04:15 Basophils 0 % (0-3) 08/13/18 04:15 Sodium 135 mEq/L (136-145) L 08/14/18 04:55 Potassium 4.7 mEq/L (3.5-5.1) 08/14/18 04:55 Chloride 103 mEq/L (98-107) 08/14/18 04:55 Carbon Dioxide 22.3 mEq/L (21.0-31.0) 08/14/18 04:55 Anion Gap 14.4 (7.0-16.0) 08/14/18 04:55 BUN 11 mg/dL (7-25) 08/14/18 04:55 Creatinine 0.6 mg/dL (0.7-1.3) L 08/14/18 04:55 Est GFR ( Amer) > 60.0 ml/min (>90) 08/14/18 04:55 Est GFR (Non-Af Amer) > 60.0 ml/min 08/14/18 04:55 BUN/Creatinine Ratio 18.3 08/14/18 04:55 Glucose 86 mg/dL (70-105) 08/14/18 04:55 Calcium 8.8 mg/dL (8.6-10.3) 08/14/18 04:55 Magnesium 2.1 mg/dL (1.9-2.7) 08/14/18 04:55 Vancomycin Trough 10.7 ug/mL (5-10) H 08/15/18 05:05 - Physical Exam Vitals and I&O: Vital Signs Temp 97.4 F 08/15/18 04:00 Pulse 73 08/15/18 08:27 Resp 18 08/15/18 04:00 BP 127/82 08/15/18 08:27 Pulse Ox 98 08/15/18 04:00 Intake & Output 08/14/18 08/15/18 08/15/18 18:59 06:59 18:59 Intake Total 730 Output Total 4 Balance 730 -4 Weight (lbs) 61.689 kg 61.689 kg Intake: Intake, IV Amount 250 Vancomycin HCl 1 gm In 250 Sodium Chloride 0.9% 250 ml @ 165 mls/hr IV Q12H [facility] Rx#:[id number] Tube Feeding 480 Output: Urine 4 Other: # Voids 3 # Bowel Movements 1 0 Weight Source Bedscale Bedscale Active Medications: Current Medications Acetaminophen (Tylenol) 650 mg GT Q4HR PRN PRN Reason: Pain Or Fever >99.9 Stop: 10/12/18 00:10 Last Admin: 08/15/18 08:35 Dose: 650 mg Ascorbic Acid (Vitamin C) 500 mg GT DAILY [facility] Stop: 10/12/18 08:59 Last Admin: 08/15/18 08:27 Dose: 500 mg Bisacodyl (Dulcolax 10 Mg Supp) 10 mg RC Q96H PRN PRN Reason: MODERATE CONSTIPATION Stop: 10/12/18 00:10 Calamine/Phenol (Calmoseptine) 1 appl TP QID PRN PRN Reason: Skin Irritation Stop: 10/13/18 13:54 Last Admin: 08/14/18 16:50 Dose: 1 appl Calcium/Vitamin D (Oscal W/Vitamin D) 1 tab GT BID [facility] Stop: 10/12/18 08:59 Last Admin: 08/15/18 08:26 Dose: 1 tab Carbamazepine (Tegretol) 150 mg GT BID [facility]; Protocol Stop: 10/12/18 08:59 Last Admin: 08/15/18 08:26 Dose: 150 mg Clopidogrel Bisulfate (Plavix) 75 mg GT HS [facility] Stop: 10/12/18 20:59 Last Admin: 08/14/18 21:14 Dose: 75 mg Gentamicin Sulfate (Gentak 0.3% Ophth Soln) 2 drop EACH EYE Q6H [facility] Stop: 10/11/18 22:44 Last Admin: 08/15/18 05:00 Dose: 2 drop Vancomycin HCl 1 gm/ Sodium (Chloride) 250 mls @ 165 mls/hr IV Q12H [facility] Stop: 10/13/18 05:59 Last Admin: 08/15/18 06:25 Dose: 165 mls/hr Lactobacillus Rhamnosus (Culturelle 15b) 1 each GT DAILY [facility] Stop: 10/12/18 08:59 Last Admin: 08/15/18 08:27 Dose: 1 each Levetiracetam (Keppra) 500 mg GT BID [facility] Stop: 10/12/18 08:59 Last Admin: 08/15/18 08:25 Dose: 500 mg Levothyroxine Sodium (Synthroid) 0.1 mg GT QDAC [facility] Stop: 10/12/18 07:29 Last Admin: 08/15/18 08:26 Dose: 0.1 mg Lisinopril (Zestril) 5 mg GT DAILY [facility] Stop: 10/12/18 08:59 Last Admin: 08/15/18 08:27 Dose: 5 mg Lorazepam (Ativan) 1 mg IVP Q3H PRN; Protocol PRN Reason: Agitation Stop: 10/11/18 22:31 Last Admin: 08/14/18 08:42 Dose: 1 mg Lorazepam (Ativan) 1 mg GT QMONTH PRN; Protocol PRN Reason: FINGER NAIL CARE Stop: 10/12/18 09:59 Last Admin: 08/15/18 02:34 Dose: 1 mg Magnesium Hydroxide (Milk Of Magnesia) 30 ml GT Q72H PRN PRN Reason: MILD CONSTIPATION Stop: 10/12/18 00:11 Metoprolol Tartrate (Lopressor) 50 mg GT QAM [facility] Stop: 10/12/18 08:59 Last Admin: 08/15/18 08:27 Dose: 50 mg Miscellaneous (Vancomycin Iv Per Pharmacy) 1 ea [facility] DAILY [facility] Stop: 10/12/18 16:29 Nitroglycerin (Nitrostat) 0.4 mg SL Q5MIN PRN PRN Reason: Chest Pain Stop: 10/12/18 00:13 Sodium Phosphate (Fleet Enema) 135 ml RC Q96H PRN PRN Reason: SEVERE CONSTIPATION Stop: 10/12/18 00:10 Valproate Sodium (Depakene) 750 mg GT Q12HR [facility] Stop: 10/12/18 08:59 Last Admin: 08/15/18 08:25 Dose: 750 mg General: NAD Neck: Supple, No JVD, No thyromegaly, No LAD Lungs: CTAB Cardiovascular: RRR, Normal S2, without murmur Abdomen: soft, non-tender, +GT - redness Extremities: clear Neurological: no change Other physical findings: less redness noted at GT site - Procedures Procedures: Procedures Procedure Code Date CHANGE FEEDING DEVICE IN UP INTEST TRACT, BREAKER ENGINEER APPROACH [id number] 04/15/18 CHANGE GASTROSTOMY TUBE 58968 07/29/[address] GASTROSTOMY TUBE 88613 07/08/16 INJECT/INFUSE NEC 99.29 02/21/13 INSERTION OF FEEDING DEVICE INTO STOMACH, PERC APPROACH [id number] 07/08/16 INSERTION OF FEEDING DEVICE INTO STOMACH, PERC ENDO APPROACH [id number] 08/12/15 INSERTION OF INFUSION DEVICE INTO UPPER VEIN, PERC APPROACH [id number] 01/01/17 THER/PROPH/DIAG IV INF, INIT 45891 08/08/07 Internal Medicine Assmt/Plan - Assessment Assessment: -GT SITE CELLULITIS, clinically improving. -HX OF DYSPHAGIA, S/P PEG PLACEMENT -HX OF CP/ID -HX OF CAD -HX OF HYPOTHYROIDISM - Plan Plan: CONT WITH IV ABXS, FOLLOW C/S CONT WITH OTHE MEDS SCHEDULED GI FU Nutritional Asmnt/Malnutr-PDOC - Dietary Evaluation Malnutrition Findings (Please click <Entered> for more info): Nutritional Asmnt/Malnutrition Start: 08/13/18 10: 51 Text: Status: Complete Freq: Protocol: Document 08/13/18 10:51 DANNY (Rec: 08/13/18 10:55 DANNY [email or web address]) Nutritional Asmnt/Malnutrition Patient General Information Nutritional Screening High Risk Diagnosis G TUBE SITE CELLULITIS AND HYPONATREMIA Pertinent Medical Hx/Surgical Hx NOT NOTED Subjective Information PT IS A 62 YEAR OLD MALE C/O G TUBE SITE REDNESS. HT: 51 WT: 136 LB 12.8 OZ (61.82 KG) BMI: 25.69 (OVERWEIGHT) GI: FLAT, SOFT, NON-TENDER SWALLOWING IMPAIRED, G TUBE PRESENT BM: NOT NOTED I/O: 1610/NOT NOTED SKIN: PINK, WARM, DRY, ELASTIC , RASH WITH ITCHING AND REDNESS SHARRI: 10 DIET ORDER: JEVITY 1.2 -1 CAN BOLUS Q4HRS (12AM,4AM,8AM,12PM ,4PM,8PM), 60ML WATER FLUSH ESTIMATED ENERGY NEEDS: ( GERIATRIC) 0829-5673 KCALS (25-30 KCALS/ KG) 62-74 G PRO (1.0-1.2 G/KG) 0268-8462 ML (25-30 ML/KG) CURRENT G TUBE FEEDING IS PROVIDING 1710 KCALS AND 80 G PRO TO MEET 100% KCAL AND 100 % PRO NEEDS. 1206 ML FLUIDS ARE PROVIDED INCLUDING THE 60ML FLUSH- ADEQUATE. Current Diet Order/ Nutrition Support JEVITY 1.2 -1 CAN BOLUS Q4HRS (12AM,4AM,8AM,12PM,4PM,8PM), Pertinent Medications MOM (PRN), NACL 0.9% 1000ML@ 75ML/HR IV [id number] [facility], FLEET ENEMA (PRN) Pertinent Labs 08/13: HGB/HCT 13.7/39.5, NA 134 , BUN/CR 11/0.6 Nutritional Hx/Data Height 1.55 m Height (Calculated Centimeters) 154.9 Current Weight (lbs) 61.689 kg Weight (Calculated Kilograms) 61.7 Weight (Calculated Grams) 20008.6 [place] Body Weight 105 % [place] Body Weight 130 Body Mass Index (BMI) 25.7 Weight Status Overweight GI Symptoms GI Symptoms None Last BM NOT NOTED Difficult in: Swallowing Skin Integrity/Comment: PINK, WARM, DRY, ELASTIC, RASH WITH ITCHING AND REDNESS Estimated Nutritional Goals BEE in Kcals: Using Current wt Calories/Kcals/Kg 25-30 Kcals Calculated 8978-7600 Protein: Using Current wt Protein g/k.0-1.2 Protein Calculated 62-74 Fluid: ml 7071-6493 ML (25-30 ML/KG) Nutritional Problem 1. Problem Problem SWALLOWING DIFFICULTY Etiology R/T DYSPHAGIA Signs/Symptoms: AEB G TUBE PLACEMENT Malnutrition Related to Morbid Obesity Malnutrition related to morbid obesity No Intervention/Recommendation Comments CONTINUE WITH CURRENT G TUBE FEEDING: JEVITY 1.2 -1 CAN BOLUS Q4HRS (12AM,4AM,8AM,12PM,4PM,8PM), 60ML WATER FLUSH Expected Outcomes/Goals Expected Outcomes/Goals 1. ENTERAL FORMULA TO CONTINUE TO MEET AT LEAST 90% ESTIMATED NUTRITIONAL NEEDS. 2. MONITOR EN TOLERANCE, WT, NUTRITION RELATED LABS AND SKIN INTEGRITY. 3. F/U MEDIUM RISK IN 3-5 DAYS, 08/16-08/18
[2018-08-15] MEDS: Menthol/Zinc Oxide Oint 113gm Tube TP PRN (18:34)
[2018-08-16] MEDS: Gentamicin 0.3% Ophth Soln 5mL Bottle EACH EYE SCH ×3 (04:16→16:11)
[2018-08-16] MEDS: Levothyroxine 0.1 Mg Tab GT SCH (06:40)
[2018-08-16] MEDS: Lactobacillus Rhamnosus GG 15 Billion CFU CAP.SPRINK GT SCH (08:49)
[2018-08-16] MEDS: Levetiracetam 500 mg/5mL 5mL UDSyr *for ORAL USE ONLY GT SCH ×2 (08:49→16:11)
[2018-08-16] MEDS: Calcium Carb/Vit D 500 mg/200 U Tab GT SCH ×2 (08:50→16:11)
[2018-08-16] MEDS: Multivitamin w/ Minerals Tab GT SCH (08:50)
[2018-08-16] MEDS: carBAMazepine 200 mg/10 mL UDC GT SCH ×2 (08:50→16:11)
--- NOTE | 2018-08-16 10:15 | Internal Medicine Prog Note ---
Internal Medicine Subjective - Subjective Service Date: 08/16/18 (comfortable) Patient seen and examined:: without staff Patient is:: asleep Per staff patient has:: no adverse event Internal Medicine Objective - Results Result Diagrams: 08/13/18 04:15 08/14/18 04:55 Recent Labs: Laboratory Last Values WBC 7.1 Th/cmm (4.8-10.8) 08/13/18 04:15 RBC 3.83 Mil/cmm (4.30-5.70) L 08/13/18 04:15 Hgb 13.7 gm/dL (12-16) 08/13/18 04:15 Hct 39.5 % (41.0-60) L 08/13/18 04:15 MCV 103.1 fl (80-99) H 08/13/18 04:15 MCH 35.8 pg (26.0-30.0) H 08/13/18 04:15 MCHC Differential 34.7 pg (28.0-36.0) 08/13/18 04:15 RDW 12.5 % (11.5-20.0) 08/13/18 04:15 Plt Count 164 Th/cmm (150-400) D 08/13/18 04:15 MPV 8.6 fl 08/13/18 04:15 Add Manual Diff YES 08/13/18 04:15 Neutrophils % 65.0 % (40.0-80.0) 08/12/18 12:40 Band Neutrophils % 2 % (0-10) 08/13/18 04:15 Lymphocytes % 13.7 % (20.0-50.0) L 08/12/18 12:40 Monocytes % 18.8 % (2.0-10.0) H 08/12/18 12:40 Eosinophils % 1.7 % (0.0-5.0) 08/12/18 12:40 Basophils % 0.0 % (0.0-2.0) 08/12/18 12:40 Neutrophils (Manual) 54 % (40-80) 08/13/18 04:15 Lymphocytes 20 % (20-50) 08/13/18 04:15 Monocytes 22 % (2-10) H 08/13/18 04:15 Eosinophils 2 % (0-5) 08/13/18 04:15 Basophils 0 % (0-3) 08/13/18 04:15 Sodium 135 mEq/L (136-145) L 08/14/18 04:55 Potassium 4.7 mEq/L (3.5-5.1) 08/14/18 04:55 Chloride 103 mEq/L (98-107) 08/14/18 04:55 Carbon Dioxide 22.3 mEq/L (21.0-31.0) 08/14/18 04:55 Anion Gap 14.4 (7.0-16.0) 08/14/18 04:55 BUN 11 mg/dL (7-25) 08/14/18 04:55 Creatinine 0.6 mg/dL (0.7-1.3) L 08/14/18 04:55 Est GFR ( Amer) > 60.0 ml/min (>90) 08/14/18 04:55 Est GFR (Non-Af Amer) > 60.0 ml/min 08/14/18 04:55 BUN/Creatinine Ratio 18.3 08/14/18 04:55 Glucose 86 mg/dL (70-105) 08/14/18 04:55 Calcium 8.8 mg/dL (8.6-10.3) 08/14/18 04:55 Magnesium 2.1 mg/dL (1.9-2.7) 08/14/18 04:55 Vancomycin Trough 10.7 ug/mL (5-10) H 08/15/18 05:05 - Physical Exam Vitals and I&O: Vital Signs Temp 96.1 F 08/16/18 08:00 Pulse 85 08/16/18 08:50 Resp 18 08/16/18 08:00 BP 119/69 08/16/18 08:50 Pulse Ox 97 08/16/18 08:00 Intake & Output 08/15/18 08/16/18 08/16/18 18:59 06:59 18:59 Intake Total 480 Balance 480 Weight (lbs) 61.689 kg 61.689 kg Intake: Tube Feeding 480 Other: # Voids 2 2 # Bowel Movements 1 1 Stool Characteristics Soft Formed Brown Weight Source Bedscale Bedscale Active Medications: Current Medications Acetaminophen (Tylenol) 650 mg GT Q4HR PRN PRN Reason: Pain Or Fever >99.9 Stop: 10/12/18 00:10 Last Admin: 08/15/18 08:35 Dose: 650 mg Ascorbic Acid (Vitamin C) 500 mg GT DAILY [facility] Stop: 10/12/18 08:59 Last Admin: 08/16/18 08:49 Dose: 500 mg Bisacodyl (Dulcolax 10 Mg Supp) 10 mg RC Q96H PRN PRN Reason: MODERATE CONSTIPATION Stop: 10/12/18 00:10 Calamine/Phenol (Calmoseptine) 1 appl TP QID PRN PRN Reason: Skin Irritation Stop: 10/13/18 13:54 Last Admin: 08/15/18 18:34 Dose: 1 appl Calcium/Vitamin D (Oscal W/Vitamin D) 1 tab GT BID [facility] Stop: 10/12/18 08:59 Last Admin: 08/16/18 08:50 Dose: 1 tab Carbamazepine (Tegretol) 150 mg GT BID [facility]; Protocol Stop: 10/12/18 08:59 Last Admin: 08/16/18 08:50 Dose: 150 mg Clindamycin HCl (Cleocin Hcl) 600 mg GT Q8HR [facility] Stop: 10/15/18 00:00 Last Admin: 08/16/18 04:13 Dose: 600 mg Clopidogrel Bisulfate (Plavix) 75 mg GT HS [facility] Stop: 10/12/18 20:59 Last Admin: 08/15/18 21:54 Dose: 75 mg Gentamicin Sulfate (Gentak 0.3% Oph Soln) 2 drop EACH EYE Q6H [facility] Stop: 10/11/18 22:44 Last Admin: 08/16/18 04:16 Dose: 2 drop Amikacin Sulfate 1,000 mg/ (Dextrose) 104 mls @ 100 mls/hr IV Q24HR [facility] Stop: 10/15/18 09:59 Lactobacillus Rhamnosus (Culturelle 15b) 1 each GT DAILY [facility] Stop: 10/12/18 08:59 Last Admin: 08/16/18 08:49 Dose: 1 each Levetiracetam (Keppra) 500 mg GT BID [facility] Stop: 10/12/18 08:59 Last Admin: 08/16/18 08:49 Dose: 500 mg Levothyroxine Sodium (Synthroid) 0.1 mg GT QDAC [facility] Stop: 10/12/18 07:29 Last Admin: 08/16/18 06:40 Dose: 0.1 mg Lisinopril (Zestril) 5 mg GT DAILY [facility] Stop: 10/12/18 08:59 Last Admin: 08/16/18 08:50 Dose: 5 mg Lorazepam (Ativan) 1 mg IVP Q3H PRN; Protocol PRN Reason: Agitation Stop: 10/11/18 22:31 Last Admin: 08/14/18 08:42 Dose: 1 mg Lorazepam (Ativan) 1 mg GT QMONTH PRN; Protocol PRN Reason: FINGER NAIL CARE Stop: 10/12/18 09:59 Last Admin: 08/15/18 16:11 Dose: 1 mg Magnesium Hydroxide (Milk Of Magnesia) 30 ml GT Q72H PRN PRN Reason: MILD CONSTIPATION Stop: 10/12/18 00:11 Metoprolol Tartrate (Lopressor) 50 mg GT QAM [facility] Stop: 10/12/18 08:59 Last Admin: 08/16/18 08:50 Dose: 50 mg Nitroglycerin (Nitrostat) 0.4 mg SL Q5MIN PRN PRN Reason: Chest Pain Stop: 10/12/18 00:13 Nystatin/Triamcinolone Acetonide (Mycolog Ii Cream) 1 appl TP X1 ONE Stop: 08/16/18 10:00 Sodium Phosphate (Fleet Enema) 135 ml RC Q96H PRN PRN Reason: SEVERE CONSTIPATION Stop: 10/12/18 00:10 Valproate Sodium (Depakene) 750 mg GT Q12HR [facility] Stop: 10/12/18 08:59 Last Admin: 08/16/18 08:49 Dose: 750 mg General: NAD Neck: Supple, No JVD, No thyromegaly, No LAD Lungs: CTAB Cardiovascular: RRR, Normal S2, without murmur Abdomen: soft, non-tender, +GT - redness Extremities: clear Neurological: no change - Procedures Procedures: Procedures Procedure Code Date CHANGE FEEDING DEVICE IN UP INTEST TRACT, ANIMAL SITTER APPROACH [id number] 04/15/18 CHANGE GASTROSTOMY TUBE 29488 07/29/[address] GASTROSTOMY TUBE 33721 07/08/16 INJECT/INFUSE NEC 99.29 02/21/13 INSERTION OF FEEDING DEVICE INTO STOMACH, PERC APPROACH [id number] 07/08/16 INSERTION OF FEEDING DEVICE INTO STOMACH, PERC ENDO APPROACH [id number] 08/12/15 INSERTION OF INFUSION DEVICE INTO UPPER VEIN, PERC APPROACH 88BS16O 01/01/17 THER/PROPH/DIAG IV INF, INIT 80745 08/08/07 Internal Medicine Assmt/Plan - Assessment Assessment: -GT SITE CELLULITIS (Cx Staph/Pseudomonas/Group B strep) -HX OF DYSPHAGIA, S/P PEG PLACEMENT -HX OF CP/ID -HX OF CAD -HX OF HYPOTHYROIDISM - Plan Plan: CONT WITH IV ABXS-Amikacin/Clinda CONT WITH OTHE MEDS SCHEDULED Nutritional Asmnt/Malnutr-PDOC - Dietary Evaluation Malnutrition Findings (Please click <Entered> for more info): Nutritional Asmnt/Malnutrition Start: 08/13/18 10: 51 Text: Status: Complete Freq: Protocol: Document 08/13/18 10:51 DANNY (Rec: 08/13/18 10:55 DANNY [email or web address]) Nutritional Asmnt/Malnutrition Patient General Information Nutritional Screening High Risk Diagnosis G TUBE SITE CELLULITIS AND HYPONATREMIA Pertinent Medical Hx/Surgical Hx NOT NOTED Subjective Information PT IS A 62 YEAR OLD MALE C/O G TUBE SITE REDNESS. HT: 51 WT: 136 LB 12.8 OZ (61.82 KG) BMI: 25.69 (OVERWEIGHT) GI: FLAT, SOFT, NON-TENDER SWALLOWING IMPAIRED, G TUBE PRESENT BM: NOT NOTED I/O: 1610/NOT NOTED SKIN: PINK, WARM, DRY, ELASTIC , RASH WITH ITCHING AND REDNESS SHARRI: 10 DIET ORDER: JEVITY 1.2 -1 CAN BOLUS Q4HRS (12AM,4AM,8AM,12PM ,4PM,8PM), 60ML WATER FLUSH ESTIMATED ENERGY NEEDS: ( GERIATRIC) 3246-6146 KCALS (25-30 KCALS/ KG) 62-74 G PRO (1.0-1.2 G/KG) 8329-1155 ML (25-30 ML/KG) CURRENT G TUBE FEEDING IS PROVIDING 1710 KCALS AND 80 G PRO TO MEET 100% KCAL AND 100 % PRO NEEDS. 1206 ML FLUIDS ARE PROVIDED INCLUDING THE 60ML FLUSH- ADEQUATE. Current Diet Order/ Nutrition Support JEVITY 1.2 -1 CAN BOLUS Q4HRS (12AM,4AM,8AM,12PM,4PM,8PM), Pertinent Medications MOM (PRN), NACL 0.9% 1000ML@ 75ML/HR IV [id number] MIRIAN, FLEET ENEMA (PRN) Pertinent Labs 08/13: HGB/HCT 13.7/39.5, NA 134 , BUN/CR 11/0.6 Nutritional Hx/Data Height 1.55 m Height (Calculated Centimeters) 154.9 Current Weight (lbs) 61.689 kg Weight (Calculated Kilograms) 61.7 Weight (Calculated Grams) 44262.6 [place] Body Weight 105 % [place] Body Weight 130 Body Mass Index (BMI) 25.7 Weight Status Overweight GI Symptoms GI Symptoms None Last BM NOT NOTED Difficult in: Swallowing Skin Integrity/Comment: PINK, WARM, DRY, ELASTIC, RASH WITH ITCHING AND REDNESS Estimated Nutritional Goals BEE in Kcals: Using Current wt Calories/Kcals/Kg 25-30 Kcals Calculated 0075-3302 Protein: Using Current wt Protein g/k.0-1.2 Protein Calculated 62-74 Fluid: ml 4458-9471 ML (25-30 ML/KG) Nutritional Problem 1. Problem Problem SWALLOWING DIFFICULTY Etiology R/T DYSPHAGIA Signs/Symptoms: AEB G TUBE PLACEMENT Malnutrition Related to Morbid Obesity Malnutrition related to morbid obesity No Intervention/Recommendation Comments CONTINUE WITH CURRENT G TUBE FEEDING: JEVITY 1.2 -1 CAN BOLUS Q4HRS (12AM,4AM,8AM,12PM,4PM,8PM), 60ML WATER FLUSH Expected Outcomes/Goals Expected Outcomes/Goals 1. ENTERAL FORMULA TO CONTINUE TO MEET AT LEAST 90% ESTIMATED NUTRITIONAL NEEDS. 2. MONITOR EN TOLERANCE, WT, NUTRITION RELATED LABS AND SKIN INTEGRITY. 3. F/U MEDIUM RISK IN 3-5 DAYS, 08/16-08/18
--- NOTE | 2018-08-16 10:48 | GI Progress Note ---
Subjective - Review of Systems Service Date: 08/16/18 Subjective: EVENTS NOTED. RICK BOLUS GT FEEDS. GI OBJECTIVE - Results Result Diagrams: 08/13/18 04:15 08/14/18 04:55 Recent Labs: Laboratory Last Values WBC 7.1 Th/cmm (4.8-10.8) 08/13/18 04:15 RBC 3.83 Mil/cmm (4.30-5.70) L 08/13/18 04:15 Hgb 13.7 gm/dL (12-16) 08/13/18 04:15 Hct 39.5 % (41.0-60) L 08/13/18 04:15 MCV 103.1 fl (80-99) H 08/13/18 04:15 MCH 35.8 pg (26.0-30.0) H 08/13/18 04:15 MCHC Differential 34.7 pg (28.0-36.0) 08/13/18 04:15 RDW 12.5 % (11.5-20.0) 08/13/18 04:15 Plt Count 164 Th/cmm (150-400) D 08/13/18 04:15 MPV 8.6 fl 08/13/18 04:15 Add Manual Diff YES 08/13/18 04:15 Neutrophils % 65.0 % (40.0-80.0) 08/12/18 12:40 Band Neutrophils % 2 % (0-10) 08/13/18 04:15 Lymphocytes % 13.7 % (20.0-50.0) L 08/12/18 12:40 Monocytes % 18.8 % (2.0-10.0) H 08/12/18 12:40 Eosinophils % 1.7 % (0.0-5.0) 08/12/18 12:40 Basophils % 0.0 % (0.0-2.0) 08/12/18 12:40 Neutrophils (Manual) 54 % (40-80) 08/13/18 04:15 Lymphocytes 20 % (20-50) 08/13/18 04:15 Monocytes 22 % (2-10) H 08/13/18 04:15 Eosinophils 2 % (0-5) 08/13/18 04:15 Basophils 0 % (0-3) 08/13/18 04:15 Sodium 135 mEq/L (136-145) L 08/14/18 04:55 Potassium 4.7 mEq/L (3.5-5.1) 08/14/18 04:55 Chloride 103 mEq/L (98-107) 08/14/18 04:55 Carbon Dioxide 22.3 mEq/L (21.0-31.0) 08/14/18 04:55 Anion Gap 14.4 (7.0-16.0) 08/14/18 04:55 BUN 11 mg/dL (7-25) 08/14/18 04:55 Creatinine 0.6 mg/dL (0.7-1.3) L 08/14/18 04:55 Est GFR ( Amer) > 60.0 ml/min (>90) 08/14/18 04:55 Est GFR (Non-Af Amer) > 60.0 ml/min 08/14/18 04:55 BUN/Creatinine Ratio 18.3 08/14/18 04:55 Glucose 86 mg/dL (70-105) 08/14/18 04:55 Calcium 8.8 mg/dL (8.6-10.3) 08/14/18 04:55 Magnesium 2.1 mg/dL (1.9-2.7) 08/14/18 04:55 Vancomycin Trough 10.7 ug/mL (5-10) H 08/15/18 05:05 - Physical Exam Vitals and I&O: Vital Signs Temp 96.1 F 08/16/18 08:00 Pulse 85 08/16/18 08:50 Resp 18 08/16/18 08:00 BP 119/69 08/16/18 08:50 Pulse Ox 97 08/16/18 08:00 Intake & Output 08/15/18 08/16/18 08/16/18 18:59 06:59 18:59 Intake Total 480 Balance 480 Weight (lbs) 61.689 kg 61.689 kg Intake: Tube Feeding 480 Other: # Voids 2 2 # Bowel Movements 1 1 Stool Characteristics Soft Formed Brown Weight Source Bedscale Bedscale Active Medications: Current Medications Acetaminophen (Tylenol) 650 mg GT Q4HR PRN PRN Reason: Pain Or Fever >99.9 Stop: 10/12/18 00:10 Last Admin: 08/15/18 08:35 Dose: 650 mg Ascorbic Acid (Vitamin C) 500 mg GT DAILY MIRIAN Stop: 10/12/18 08:59 Last Admin: 08/16/18 08:49 Dose: 500 mg Bisacodyl (Dulcolax 10 Mg Supp) 10 mg RC Q96H PRN PRN Reason: MODERATE CONSTIPATION Stop: 10/12/18 00:10 Calamine/Phenol (Calmoseptine) 1 appl TP QID PRN PRN Reason: Skin Irritation Stop: 10/13/18 13:54 Last Admin: 08/15/18 18:34 Dose: 1 appl Calcium/Vitamin D (Oscal W/Vitamin D) 1 tab GT BID MIRIAN Stop: 10/12/18 08:59 Last Admin: 08/16/18 08:50 Dose: 1 tab Carbamazepine (Tegretol) 150 mg GT BID MIRIAN; Protocol Stop: 10/12/18 08:59 Last Admin: 08/16/18 08:50 Dose: 150 mg Clindamycin HCl (Cleocin Hcl) 600 mg GT Q8HR MIRIAN Stop: 10/15/18 00:00 Last Admin: 08/16/18 04:13 Dose: 600 mg Clopidogrel Bisulfate (Plavix) 75 mg GT HS MIRIAN Stop: 10/12/18 20:59 Last Admin: 08/15/18 21:54 Dose: 75 mg Gentamicin Sulfate ([place]ak 0.3% [facility]) 2 drop EACH EYE Q6H MIRIAN Stop: 10/11/18 22:44 Last Admin: 08/16/18 10:43 Dose: 2 drop Lactobacillus Rhamnosus (Culturelle 15b) 1 each GT DAILY MIRIAN Stop: 10/12/18 08:59 Last Admin: 08/16/18 08:49 Dose: 1 each Levetiracetam (Keppra) 500 mg GT BID MIRIAN Stop: 10/12/18 08:59 Last Admin: 08/16/18 08:49 Dose: 500 mg Levothyroxine Sodium (Synthroid) 0.1 mg GT QDAC MIRIAN Stop: 10/12/18 07:29 Last Admin: 08/16/18 06:40 Dose: 0.1 mg Lisinopril (Zestril) 5 mg GT DAILY MIRIAN Stop: 10/12/18 08:59 Last Admin: 08/16/18 08:50 Dose: 5 mg Lorazepam (Ativan) 1 mg IVP Q3H PRN; Protocol PRN Reason: Agitation Stop: 10/11/18 22:31 Last Admin: 08/14/18 08:42 Dose: 1 mg Lorazepam (Ativan) 1 mg GT QMONTH PRN; Protocol PRN Reason: FINGER NAIL CARE Stop: 10/12/18 09:59 Last Admin: 08/15/18 16:11 Dose: 1 mg Magnesium Hydroxide (Milk Of Magnesia) 30 ml GT Q72H PRN PRN Reason: MILD CONSTIPATION Stop: 10/12/18 00:11 Metoprolol Tartrate (Lopressor) 50 mg GT QAM MIRIAN Stop: 10/12/18 08:59 Last Admin: 08/16/18 08:50 Dose: 50 mg Miscellaneous (Amikacin Iv Per Pharmacy) 1 ea MC PRN PRN PRN Reason: PROTOCOL Stop: 10/15/18 10:17 Miscellaneous (Misc Injection) 0.5 vial IM Q12H MIRIAN Stop: 10/15/18 10:59 Nitroglycerin (Nitrostat) 0.4 mg SL Q5MIN PRN PRN Reason: Chest Pain Stop: 10/12/18 00:13 Nystatin/Triamcinolone Acetonide (Mycolog Ii Cream) 1 appl TP BID MIRIAN Stop: 08/23/18 16:59 Sodium Phosphate (Fleet Enema) 135 ml RC Q96H PRN PRN Reason: SEVERE CONSTIPATION Stop: 10/12/18 00:10 Valproate Sodium (Depakene) 750 mg GT Q12HR MIRIAN Stop: 10/12/18 08:59 Last Admin: 08/16/18 08:49 Dose: 750 mg General: No acute distress Abdomen: Bowel sounds, Soft, Other (intact GT), no Tender - Procedures Procedures: Procedures Procedure Code Date CHANGE FEEDING DEVICE IN UP INTEST TRACT, SCRAP DROP ENGINEER APPROACH [id number] 04/15/18 CHANGE GASTROSTOMY TUBE 93028 07/29/[address] GASTROSTOMY TUBE 62623 07/08/16 INJECT/INFUSE NEC 99.29 02/21/13 INSERTION OF FEEDING DEVICE INTO STOMACH, PERC APPROACH [id number] 07/08/16 INSERTION OF FEEDING DEVICE INTO STOMACH, PERC ENDO APPROACH [id number] 08/12/15 INSERTION OF INFUSION DEVICE INTO UPPER VEIN, PERC APPROACH 82IE62R 01/01/17 THER/PROPH/DIAG IV INF, INIT 71270 08/08/07 Assessment/Plan - Problem List Patient Problems: All Active Problems GASTROSTOMY STOMA REDNESS (Acute) - Assessment Assessment: IMPRESSION: 1. GT LEAK/CELLULITIS - LIKELY DUE TO OUTER BUMPER TOO TIGHT - LOOSENED AND DRESSING PLACED BETWEEN SKIN AND BUMPER. KUB CONFIRMED APPROPRIATE PLACEMENT. 2. DYSPHAGIA. RECS: 1. BOLUS TUBE FEEDS TOLERATED. 2. CONTINUE MEDS. 3. MONITOR LABS. 4. GT CARE. GI WORRELL STABLE.
[2018-08-16] MEDS ORDERED: Amikacin 250 mg/mL 2mL Vial IM SCH (11:00)
[2018-08-16] MEDS ORDERED: AMIKACIN 250 MG/ML IM SCH (11:00)
--- NOTE | 2018-08-22 20:24 | Discharge Summary ---
DATE OF DISCHARGE: 08/16/2018 ADMITTING DIAGNOSES: 1. G-tube site cellulitis. 2. Recent G-tube replacement. SECONDARY DIAGNOSES: Include, 1. History of dysphagia, on chronic PEG feeds. 2. History of intellectual disability/mental retardation. 3. History of coronary artery disease. 4. History of essential hypertension. 5. History of seizure disorder. 6. History of hypothyroidism. 7. History of hypertension. DISCHARGE DIAGNOSES: 1. G-tube site cellulitis (include multi-organism -- Staph Pseudomonas and group B strep). 2. Recent history of PEG replacement. CONSULTANTS: GI, Dr. Dove. MAJOR PROCEDURES/DIAGNOSTICS: Upper GI series done on 08/13/2018 shows confirmation of G-tube in the gastric lumen. BRIEF HOSPITAL COURSE: The patient is a 62-year-old male who resides at [facility] with multiple medical problems including mental retardation/cerebral palsy, peptic ulcer disease, and dysphagia on chronic PEG feeds. He was noted to have redness around his G-tube site and was transferred to the ER where he was cultured and was admitted to the medical floor for further management and care. His labs and his vital signs were noted to be within normal limits upon admission and the patient was placed on IV antibiotics, IV fluids and GI consult was also asked for further management and care. The site of infection was cultured eventually coming back with MRSA, pseudomonas and strep group B. The patient's antibiotics were tailored in conjunction with culture results as well as his multiple antibiotic allergies which include ERYTHROMYCIN, LEVAQUIN and PENICILLINS. He did remain stable throughout his hospital stay, not showing any signs of sepsis and remained afebrile throughout his hospital stay. His white count also remained normal as well as his electrolytes. DISCHARGE MEDICATIONS: Please refer to the MAR. He was written for antibiotics including IM amikacin. DISPOSITION: The patient was discharged to [facility] under the care of Dr. Prince. [facility]# [id number]
== END 2018-08-16 18:16 | DRG 393 ==
LOC: ER 11:15 → MSI 14:55
PROVIDERS: ADMIT Internal Medicine; ATTEND Internal Medicine
DX: K94.22 Gastrostomy infection (principal); R53.2 Functional quadriplegia; G93.40 Encephalopathy, unspecified; G40.909 Epilepsy, unspecified, not intractable, without status epilepticus; I10 Essential (primary) hypertension; E03.9 Hypothyroidism, unspecified; M19.90 Unspecified osteoarthritis, unspecified site; I25.10 Atherosclerotic heart disease of native coronary artery without angina pectoris; R13.10 Dysphagia, unspecified; Z88.0 Allergy status to penicillin; Z88.5 Allergy status to narcotic agent; Z79.899 Other long term (current) drug therapy; Y83.8 Other surgical procedures as the cause of abnormal reaction of the patient, or of later complication, without mention of misadventure at the time of the procedure; Y92.89 Other specified places as the place of occurrence of the external cause
CPT/HCPCS: 36415-UA; 71045-TC; 80048-TC; 80202-TC; 83735-TC; 85007-TC; 85025-TC; 87070-90; 96374; J0278; J1200; J2060; J3370; J7030; X5958; Z7610